=== PATIENT | male | born 1955 | race Caucasian/White ===

== ENCOUNTER 2016-11-20 21:04 | Inpatient (IN) | payer OTHER ==
[2016-11-20] VITALS (7 sets, daily range): BP systolic 124–173; BP diastolic 66–107; PULSE 50–70; RESP 16–18; TEMP 98.7; O2SAT 95–99
[~2016-11-20] VITALS: Ht 185.4 cm; Wt 105.4 kg
--- NOTE | 2016-11-20 21:25 | PD ---
HPI Chief Complaint: chest pain Time Seen by Provider: 21:15 Travel History International Travel<30 days: No Contact w/Intl Traveler<30days: No Traveled to known affect area: No History of Present Illness HPI 61-year-old male complains of chest pain. Patient states that she started having chest pain about 2 hours prior coming to the emergency room. Patient states that the chest pain substernal pressure without radiation. Patient denies palpitation nausea or diaphoresis. Patient denies any coughing congestion fever chills. Patient denies any history of CAD. Patient has history hypertension and hyperlipidemia. Patient denies history diabetes. Patient is a nonsmoker. Patient has family history of heart disease. PFSH Social History Tobacco Use: No Allergies-Medications (Allergen,Severity, Reaction): Coded Allergies: No Known Allergies (Unverified , 11/20/16) Reported Meds & Prescriptions Reported Meds & Active Scripts Active Reported Hydrochlorothiazide 25 Mg Tab 25 Mg PO DAILY Verapamil ER (Verapamil HCl) 120 Mg Tab 120 Mg PO DAILY Carvedilol 3.125 Mg Tab 3.125 Mg PO BID Review of Systems General / Constitutional: No: Fever Eyes: No: Visual changes HENT: No: Headaches Cardiovascular: Positive: Chest Pain or Discomfort Respiratory: No: Shortness of Breath Gastrointestinal: No: Abdominal Pain Genitourinary: No: Dysuria Musculoskeletal: No: Pain Skin: No Rash Neurologic: No: Weakness Psychiatric: No: Depression Endocrine: No: Polydipsia Hematologic/Lymphatic: No: Easy Bruising Physical Exam Narrative GENERAL: Well-nourished, well-developed patient. SKIN: Focused skin assessment warm/dry. HEAD: Normocephalic. EYES: No scleral icterus. No injection or drainage. NECK: Supple, trachea midline. No JVD or lymphadenopathy. CARDIOVASCULAR: Regular rate and rhythm without murmurs, gallops, or rubs. RESPIRATORY: Breath sounds equal bilaterally. No accessory muscle use. GASTROINTESTINAL: Abdomen soft, non-tender, nondistended. MUSCULOSKELETAL: No cyanosis, or edema. BACK: Nontender without obvious deformity. No CVA tenderness. Neurologic exam normal. Data Data Last Documented VS Vital Signs Date Time Temp Pulse Resp B/P Pulse Ox O2 Delivery O2 Flow Rate FiO2 11/20/16 22:21 70 18 173/107 97 Room Air 11/20/16 21:24 98.7 Orders Electrocardiogram (11/20/16 21:19) Complete Blood Count With Diff (11/20/16 21:19) Comprehensive Metabolic Panel (11/20/16 21:) Creatine Kinase (Cpk) (11/20/16 21:) Troponin I (11/20/16 21:19) Prothrombin Time / Inr (Pt) (11/20/16 21:19) Act Partial Throm Time (Ptt) (11/20/16 21:19) Lipase (11/20/16 21:) Chest, Single Ap (11/20/16 21:19) Iv Access Insert/Monitor (11/20/16 21:19) Ecg Monitoring (11/20/16:) Oximetry (11/20/16 21:) Aspirin (Aspirin) (11/20/16 21:30) CKMB (11/20/16 21:20) CKMB% (11/20/16 21:20) Nitroglycerin Sl (Nitrostat Sl) (11/20/16 22:30) Nitroglycerin 2% Oint (Nitroglycerin 2% (11/20/16 22:30) Heparin Infusion VLADIMIR.Q1H (11/20/16 22:21) Heparin Inj (Heparin Inj) (11/20/16 22:30) Heparin-D5w Inj (Heparin-D5w Inj) (11/20/16 22:30) Nitroglycerin-Dextrose Inj (Nitroglyceri (11/20/16 22:30) Admit Order (Ed Use Only) (11/20/16 22:27) Labs Laboratory Tests Test 11/20/16 21:20 White Blood Count 7.0 TH/MM3 Red Blood Count 4.71 MIL/MM3 Hemoglobin 14.2 GM/DL Hematocrit 41.9 % Mean Corpuscular Volume 88.9 FL Mean Corpuscular Hemoglobin 30.2 PG Mean Corpuscular Hemoglobin 34.0 % Concent Red Cell Distribution Width 13.8 % Platelet Count 246 TH/MM3 Mean Platelet Volume 9.1 FL Neutrophils (%) (Auto) 71.6 % Lymphocytes (%) (Auto) 18.7 % Monocytes (%) (Auto) 5.9 % Eosinophils (%) (Auto) 3.5 % Basophils (%) (Auto) 0.3 % Neutrophils # (Auto) 5.1 TH/MM3 Lymphocytes # (Auto) 1.3 TH/MM3 Monocytes # (Auto) 0.4 TH/MM3 Eosinophils # (Auto) 0.2 TH/MM3 Basophils # (Auto) 0.0 TH/MM3 CBC Comment DIFF FINAL Differential Comment Prothrombin Time 11.4 SEC Prothromb Time International 1.0 RATIO Ratio Activated Partial 26.4 SEC Thromboplast Time Sodium Level 139 MEQ/L Potassium Level 3.8 MEQ/L Chloride Level 105 MEQ/L Carbon Dioxide Level 25.5 MEQ/L Anion Gap 9 MEQ/L Blood Urea Nitrogen 27 MG/DL Creatinine 0.77 MG/DL Estimat Glomerular Filtration 103 ML/MIN Rate Random Glucose 138 MG/DL Calcium Level 9.0 MG/DL Total Bilirubin 0.7 MG/DL Aspartate Amino Transf 50 U/L (AST/SGOT) Alanine Aminotransferase 68 U/L (ALT/SGPT) Alkaline Phosphatase 55 U/L Total Creatine Kinase 892 U/L Creatine Kinase MB 24.1 NG/ML Creatine Kinase MB % 2.7 % Troponin I 0.12 NG/ML Total Protein 6.7 GM/DL Albumin 3.2 GM/DL Lipase 101 U/L [facility] Medical Decision Making Medical Screen Exam Complete: Yes Emergency Medical Condition: Yes Interpretation(s) 21:24 PM. EKG shows sinus rhythm nonspecific ST-T wave change. 22:08 PM. Last Impressions Chest X-Ray 11/20/162118 Signed Impressions: Service Date/Time: Sunday, November 20, 2016 21:28 - CONCLUSION: Compensated cardiomegaly otherwise negative Board Certified Radiologist. This report was verified electronically. 22:08 PM. CBC within normal limit. BUN 27. AST 50. Total CK 892. Troponin 0.12. Differential Diagnosis Differential diagnosis including angina, SD, PE, pneumothorax. Narrative Course 61-year-old male with chest pain. Aspirin 325 mg by mouth given. Nitro glycerin sublingually and Nitro paste given. I spoke with Dr. Ivory, product safety technical assistant research and evaluation manager. Advised heparin bolus and drip, nitro drip and morphine and admitted to [facility]. Diagnosis Primary Impression: NSTEMI (non-ST elevated myocardial infarction) Admitting Information Admitting Physician Requests: Admit Arie Gomez MD Nov 20, 2016 21:25
[2016-11-20] MEDS ORDERED: CARV3.12 PO (21:28)
[2016-11-20] MEDS ORDERED: HYDR25TA5 PO (21:28)
[2016-11-20] MEDS ORDERED: VERA1TAB9 PO (21:28)
[2016-11-20] MEDS ORDERED: ASPIRIN 325 MG TAB PO ONE (21:30)
[2016-11-20 21:39] LABS: AUTOMATED NEUTROPHIL # 5.1 TH/MM3 (1.8-7.7); BASOPHIL % 0.3 % (0.0-2.0); EOSINOPHIL # 0.2 TH/MM3 (0-0.4); EOSINOPHIL % 3.5 % (0.0-4.0); HEMATOCRIT 41.9 % (39.0-51.0); HEMO FLAGS DIFF FINAL; LYMPH % 18.7 % (9.0-44.0); LYMPHOCYTE # 1.3 TH/MM3 (1.0-4.8); MEAN CELL VOLUME 88.9 FL (80.0-100.0); MEAN CORPUSCULAR HEMOGLOBIN 30.2 PG (27.0-34.0); MONO % 5.9 % (0.0-8.0); NEUT % 71.6 % (16.0-70.0); PLATELET COUNT 246 TH/MM3 (150-450); RED BLOOD COUNT 4.71 MIL/MM3 (4.50-5.90); RED CELL DISTRIBUTION WIDTH 13.8 % (11.6-17.2)
[2016-11-20 21:48] LABS: CHLORIDE 105 MEQ/L (98-107); POTASSIUM 3.8 MEQ/L (3.5-5.1); SODIUM (NA) 139 MEQ/L (136-145)
--- NOTE | 2016-11-20 21:49 | RADRPT ---
EXAM DATE/TIME: 11/20/2016 21:28 [place] COMPARISON: No previous studies available for comparison. INDICATIONS : Chest pain. MEDICAL HISTORY : Hypertension. Coronary artery disease. SURGICAL HISTORY : None. ENCOUNTER: Initial ACUITY: 1 day PAIN SCORE: 4/10 LOCATION: chest substernal. FINDINGS: The lungs are clear. The heart is minimally enlarged. The pulmonary vascularity is normal. There is n o evidence for infiltrate or failure. The portion of the bony skeleton visualized is unremarkable. CONCLUSION: Compensated cardiomegaly otherwise negative Board Certified Radiologist. This report was verified electronically.
[2016-11-20 21:51] LABS: APTT (PATIENT) 26.4 SEC (24.3-30.1); PROTHROMBIN TIME - PATIENT 11.4 SEC (9.8-11.6)
[2016-11-20 21:52] LABS: ANION GAP 9 MEQ/L (5-15); BICARBONATE 25.5 MEQ/L (21.0-32.0); BLOOD UREA NITROGEN 27 MG/DL (7-18)
[2016-11-20 21:55] LABS: ALT (GPT) 68 U/L (12-78); AST (GOT) 50 U/L (15-37); GLOMERULAR FILTRATION RATE 103 ML/MIN (>89)
[2016-11-20 21:57] LABS: TOTAL BILIRUBIN ADULT 0.7 MG/DL (0.2-1.0)
[2016-11-20 21:58] LABS: ALKALINE PHOSPHATASE 55 U/L (45-117); CREATINE KINASE 892 U/L (39-308)
[2016-11-20 22:10] LABS: CKMB 24.1 NG/ML (0.5-3.6)
[2016-11-20] MEDS ORDERED: SODIUM CHLORIDE 0.9% FLUSH 10 ML FLUSH IV FLUSH PRN (22:30)
[2016-11-20] MEDS ORDERED: NALOXONE HCL 0.4 MG/ML AMP IV PRN (22:30)
[2016-11-20] MEDS ORDERED: HEPARIN SODIUM - IV 10,000 UNITS/10 ML VIAL IV ONE (22:30)
[2016-11-20] MEDS ORDERED: NITROGLYCERIN-DEXTROSE INJ 250 ML IV SCH (22:30)
[2016-11-20] MEDS ORDERED: HEPARIN-D5W INJ 250 ML IV SCH (22:30)
[2016-11-20] MEDS ORDERED: NITROGLYCERIN 2% OINT 1 GM PACKET TOPICAL ONE (22:30)
[2016-11-20] MEDS ORDERED: NITROGLYCERIN 0.4 MG SL 25 TABS/BTL SL ONE (22:30)
[2016-11-21] VITALS (15 sets, daily range): BP systolic 146–169; BP diastolic 83–108; PULSE 66–78; RESP 16–18; TEMP 97.7–98.6; O2SAT 92–97
[2016-11-21 04:21] LABS: APTT (PATIENT) 31.3 SEC (24.3-30.1)
--- NOTE | 2016-11-21 04:44 | HHI.HP ---
[facility] No Primary Care Physician Admission Diagnosis NSTEMI Diagnoses: (1) NSTEMI (non-ST elevated myocardial infarction) (2) Hypertension Chief Complaint: Chest pain Travel History International Travel<30 Days: No Contact w/Intl Traveler <30 Da: No Traveled to Known Affected Are: No History of Present Illness Written by Bri Cuba, acting as scribe for Dr. Jewell on 11/21/16 at 04:44. The patient reports his history as follows; yesterday (11/20/16) he developed severe chest pressure located in the central chest described as feeling like someone sitting on chest; denies associated nausea, vomiting, diaphoresis, or palpitations. The pain did not radiate anywhere. He decided to lay down in hopes that symptoms would broderick but they did not. Therefore, he drove himself to the hospital in [place]. Symptoms lasted for 2 hours and were resolved with administration of nitroglycerin in the ED. He denies any recent illness, fevers, or diarrhea. Denies black or red stools. Cardiac enzymes were elevated and he was transferred to the main hospital for admission and medical management. Review of Systems Except as stated in HPI: all other systems reviewed are Neg Past Family Social History Past Medical History Hypertension . Past Surgical History Lump on face removed 2016 as an outpatient Left hand laceration repair in 2014 . Reported Medications Reported Meds & Active Scripts Active Reported Hydrochlorothiazide 25 Mg Tab 25 Mg PO DAILY Verapamil ER (Verapamil HCl) 120 Mg Tab 120 Mg PO DAILY Carvedilol 3.125 Mg Tab 3.125 Mg PO BID . Allergies: Coded Allergies: No Known Allergies (Unverified , 11/20/16) Active Ordered Medications Current Medications Aspirin (Aspirin) 325 mg ONCE ONCE PO Last administered on 11/20/16 21:32; Start 11/20/16 at 21:30; Stop 11/20/16 at 21:31; Status DC Nitroglycerin (Nitrostat Sl) 0.4 mg ONCE ONCE SL Last administered on 22:22; Start 11/20/16 at 22:30; Stop 11/20/16 at 22:31; Status DC Nitroglycerin (Nitroglycerin 2% Oint) 1 inch ONCE ONCE TOPICAL Last administered on 11/20/16 22:22; Start 11/20/16 at 22:30; Stop 11/20/16 at 22:31 ; Status DC Heparin Sodium (Porcine) 4000 units 4,000 units ONCE ONCE IV Last administered on 11/20/16 22:50; Start 11/20/16 at 22:30; Stop 11/20/16 at 22:31 ; Status DC Heparin Sodium/ Dextrose 250 ml @ 0 mls/hr TITRATE IV Last administered on 11/20 22:52; Start 11/20/16 at 22:30 Nitroglycerin/ Dextrose (Nitroglycerin-Dextrose Inj) 250 ml @ 0 mls/hr TITRATE IV Last administered on 11/21/16 01:15; Start 11/20/16 at 22:30 Sodium Chloride (NS Flush) 2 ml UNSCH PRN IV FLUSH FLUSH AFTER USING IV ACCESS ; Start 11/20/16 at 22:30 Sodium Chloride (NS Flush) 2 ml BID IV FLUSH ; Start 11/21/16 at 09:00 Naloxone HCl (Narcan Inj) 0.4 mg UNSCH PRN IV SEE LABEL COMMENTS; Start at 22:30 Pneumococcal Polyvalent Vaccine (Pneumovax-23 Inj) 25 mcg ONCE ONCE IM ; Start 11/21/16 at 09:00; Stop 11/21/16 at 09:01 . Family History Mother from cancer age 43 y/o Father in his 60's from CAD/AL . Social History Tobacco: denies ever smoking Alcohol: usually limits drinking to weekends Illicit Drugs: denies . Physical Exam Vital Signs Vital Signs Date Time Temp Pulse Resp B/P Pulse Ox O2 Delivery O2 Flow Rate FiO2 11/21/16 03:00 73 11/21/16 03:00 97 Room Air 11/21/16 00:30 97 Room Air 11/21/16 00:30 76 11/21/16 00:30 97.7 75 18 169/108 97 11/21/16 00:05 98.0 68 18 160/97 97 11/20/16 23:15 62 16 142/82 96 Room Air 11/20/16 22:45 50 18 124/66 95 Room Air 11/20/16 22:21 70 18 173/107 97 Room Air 11/20/16 22:10 70 18 172/104 98 Room Air 11/20/16 21:35 70 18 Room Air 11/20/16 21:25 70 18 171/103 99 Room Air 149/90 11/20/16 21:24 98.7 69 18 148/97 98 11/20/16 21:20 99 Room Air Physical Exam GENERAL: This is a very pleasant overweight male patient, in no apparent distress. SKIN: No rashes, ecchymoses or lesions. Cool and dry. HEAD: Atraumatic. Normocephalic. EYES: No scleral icterus. No injection or drainage. ENT: Nose without bleeding, purulent drainage. NECK: Trachea midline. No JVD or lymphadenopathy. CARDIOVASCULAR: Regular rate and rhythm without murmurs, gallops, or rubs. RESPIRATORY: Clear to auscultation. Breath sounds equal bilaterally. No wheezes , rales, or rhonchi. GASTROINTESTINAL: Abdomen soft, non-tender, nondistended. No guarding. MUSCULOSKELETAL: Extremities without clubbing, cyanosis, or edema. No calf tenderness. NEUROLOGICAL: Awake and alert. Motor and sensory grossly within normal limits. Normal speech. . Laboratory Laboratory Tests Test 11/20/16 11/21/16 21:20 03:45 White Blood Count 7.0 Red Blood Count 4.71 Hemoglobin 14.2 Hematocrit 41.9 Mean Corpuscular Volume 88.9 Mean Corpuscular Hemoglobin 30.2 Mean Corpuscular Hemoglobin 34.0 Concent Red Cell Distribution Width 13.8 Platelet Count 246 Mean Platelet Volume 9.1 Neutrophils (%) (Auto) 71.6 Lymphocytes (%) (Auto) 18.7 Monocytes (%) (Auto) 5.9 Eosinophils (%) (Auto) 3.5 Basophils (%) (Auto) 0.3 Neutrophils # (Auto) 5.1 Lymphocytes # (Auto) 1.3 Monocytes # (Auto) 0.4 Eosinophils # (Auto) 0.2 Basophils # (Auto) 0.0 CBC Comment DIFF FINAL Differential Comment Prothrombin Time 11.4 Prothromb Time International 1.0 Ratio Activated Partial 26.4 31.3 Thromboplast Time Sodium Level 139 Potassium Level 3.8 Chloride Level 105 Carbon Dioxide Level 25.5 Anion Gap 9 Blood Urea Nitrogen 27 Creatinine 0.77 Estimat Glomerular Filtration 103 Rate Random Glucose 138 Calcium Level 9.0 Total Bilirubin 0.7 Aspartate Amino Transf 50 (AST/SGOT) Alanine Aminotransferase 68 (ALT/SGPT) Alkaline Phosphatase 55 Total Creatine Kinase 892 Creatine Kinase MB 24.1 Creatine Kinase MB % 2.7 Troponin I 0.12 Total Protein 6.7 Albumin 3.2 Lipase 101 Result Diagram: 11/20/16211911/20/162119 Imaging Last Impressions Chest X-Ray 11/20/162118 Signed Impressions: Service Date/Time: Sunday, November 20, 2016 21:28 - CONCLUSION: Compensated cardiomegaly otherwise negative Board Certified Radiologist. This report was verified electronically. . Assessment and Plan Problem List: (1) NSTEMI (non-ST elevated myocardial infarction) ICD Code: I21.4 Status: Acute (2) Hypertension ICD Code: I10 Status: Chronic Assessment and Plan Mr. Gipson is a 61 y/o male with a history of hypertension who presents to the ER on 11/20/16 with chest pain. Cardiac enzymes were elevated in ED and hes admitted for medical management. NSTEMI - Dr. Ivory, pig handler consulted in ED, assistance appreciated - Heparin drip - Nitroglycerin drip - Initial troponin I is 0.12, second troponin I is 11.3 - Serial EKGs and cardiac enzymes to trend - Continuous cardiac telemetry to monitor for arrhythmias - NPO for possible procedure in a.m. - Vital signs q4h Poorly controlled hypertension - On nitroglycerin drip - Will restart home blood pressure medications other than HCTZ which we will place on hold for now - Monitor blood pressure readings and adjust treatment as indicated DVT prophylaxis - on heparin drip . Discussed Condition With ER physician, patient, and RN . Physician Certification 2 Midnight Certification Type: Admission for Inpatient Services Order for Inpatient Services The services are ordered in accordance with Medicare regulations or non- Medicare payer requirements, as applicable. In the case of services not specified as inpatient-only, they are appropriately provided as inpatient services in accordance with the 2-midnight benchmark. Estimated LOS (days): 3 days is the estimated time the patient will need to remain in the hospital, assuming treatment plan goals are met and no additional complications. Post-Hospital Plan: Home Bri Cuba Nov 21, 2016 04:43
[2016-11-21 04:51] LABS: CKMB 48.4 NG/ML (0.5-3.6)
[2016-11-21 05:41] LABS: AUTOMATED NEUTROPHIL # 3.5 TH/MM3 (1.8-7.7); BASOPHIL % 0.3 % (0.0-2.0); EOSINOPHIL # 0.2 TH/MM3 (0-0.4); HEMATOCRIT 40.3 % (39.0-51.0); HEMO FLAGS DIFF FINAL; LYMPH % 30.1 % (9.0-44.0); LYMPHOCYTE # 1.8 TH/MM3 (1.0-4.8); MEAN CELL VOLUME 88.6 FL (80.0-100.0); MEAN CORPUSCULAR HEMOGLOBIN 29.7 PG (27.0-34.0); MEAN CORPUSCULAR HGB CONC 33.6 % (32.0-36.0); MONO % 6.5 % (0.0-8.0); NEUT % 60.1 % (16.0-70.0); PLATELET COUNT 234 TH/MM3 (150-450); RED BLOOD COUNT 4.54 MIL/MM3 (4.50-5.90); RED CELL DISTRIBUTION WIDTH 14.3 % (11.6-17.2); WHITE BLOOD COUNT 5.9 TH/MM3 (4.0-11.0)
[2016-11-21] MEDS: CARVEDILOL 3.125 MG TAB PO SCH ×3 (06:19→21:05)
[2016-11-21 06:41] LABS: BICARBONATE 28.5 MEQ/L (21.0-32.0); POTASSIUM 3.7 MEQ/L (3.5-5.1)
[2016-11-21] MEDS ORDERED: CARVEDILOL 3.125 MG TAB PO SCH (09:00)
[2016-11-21] MEDS ORDERED: PNEUMOCOCCAL POLYVALENT INJ 25 MCG/0.5 ML SYR IM ONE (09:00)
--- NOTE | 2016-11-21 09:06 | MB ---
cc: MAHTEW RITCHIE DATE OF CONSULTATION 11/21/2016 DATE OF 1955 REASON FOR CONSULTATION [id number] [place]. HISTORY OF PRESENT ILLNESS 61-year-old male with cardiac risk factors, age and hypertension who presented to the emergency department in [place] with complaints of left-sided chest pressure that lasted for two hours and was relieved by nitroglycerin given in the emergency department. EKG showed nonspecific ST changes, however, troponins were markedly elevated. Thus he was transferred to the [facility] for further management and evaluation. Overnight he was started on a nitroglycerin drip and a heparin drip. He was given an aspirin. He denies fevers, chills, nausea, vomiting, diarrhea, black or red stools or any bleeding issues. REVIEW OF SYSTEMS Negative except for what is mentioned in HPI. PAST MEDICAL HISTORY Hypertension PAST SURGICAL HISTORY 1. Removal of a lump on the face in 2015. 2. Left hand laceration repair in 2014. HOME MEDICATIONS 1. Hydrochlorothiazide 25 mg p.o. daily 2. Verapamil ER 120 mg p.o. daily 3. Coreg 3.125 mg p.o. b.i.d. ALLERGIES NO KNOWN DRUG ALLERGIES. FAMILY HISTORY The mother from cancer at age 43. Father in his 60s from a heart attack. SOCIAL HISTORY He denies illicit drug use, tobacco abuse and he drinks alcohol socially. PHYSICAL EXAM VITAL SIGNS: Temperature 98.1, respiratory rate 18, pulse 74, blood pressure 163/91, O2 sat 92% on room air. GENERAL: He is awake, alert, and oriented x3 in no acute distress. NECK: No JVD, no carotid bruits. HEART: Regular rate and rhythm without murmurs, rubs or gallops. LUNGS: Clear to auscultation bilaterally. No wheezes or rhonchi or rales. ABDOMEN: Soft, nontender, nondistended with positive bowel sounds. EXTREMITIES: No cyanosis or edema. Pulses throughout. DATA CBC hemoglobin 13, hematocrit of 40, platelet count 234, INR 1. Sodium 139, potassium 3.7, BUN 20, creatinine 0.66, troponin 0.12 and 11.3. IMAGING STUDIES Chest x-ray, there is cardiomegaly. EKG normal sinus rhythm with nonspecific ST changes. ASSESSMENT/PLAN 61-year-old male who presented with a pzi-[id number] [place] and cardiac risk factors that include age and hypertension. His SHERRELL risk score 2 and Killip classification 1 with no clinical signs of heart failure. He remains favorably hemodynamically stable chest pain-free. Given NSTEMI I think it is reasonable to take him to the cardiac medical laboratory assistant for primary PCI. The risks and benefits of left heart cath with possible intervention including, but not limited to neurovascular trauma, acute kidney injury, bleeding, stroke, emergent bypass surgery and have been explained to the patient. The patient understands the risks and is willing to proceed. RECOMMENDATIONS 1. Keep n.p.o. for left heart cath today. 2. Approach right transfemoral 6-[place] sheath. 3. Continue aggressive medical management for CAD/non-STEMI with heparin, nitroglycerin, beta-blockers, aspirin. 4. The patient should get a 2-D echo before discharge to assess LV systolic function. MD TRAY Tolbert/NADEGE /8:45 AM /8:58 AM BG
--- NOTE | 2016-11-21 09:12 | HHI.PR ---
Subjective Remarks f/u for NSTEMI Patient stated that chest pain resolved after getting nitroglycerin. He denies any shortness of breathing, lightheadedness or dizziness, or palpitations. Patient at the moment he is doing well. Objective Vitals Vital Signs Date Time Temp Pulse Resp B/P Pulse Ox O2 Delivery O2 Flow Rate FiO2 11/21/16 07:00 92 Room Air 11/21/16 07:00 74 11/21/16 07:00 98.1 74 18 163/91 92 11/21/16 03:00 98.5 70 16 158/97 97 11/21/16 03:00 73 11/21/16 03:00 97 Room Air 11/21/16 00:30 97 Room Air 11/21/16 00:30 76 11/21/16 00:30 97.7 75 18 169/108 97 11/21/16 00:05 98.0 68 18 160/97 97 11/20/16 23:15 62 16 142/82 96 Room Air 11/20/16 22:45 50 18 124/66 95 Room Air 11/20/16 22:21 70 18 173/107 97 Room Air 11/20/16 22:10 70 18 172/104 98 Room Air 11/20/16 21:35 70 18 Room Air 11/20/16 21:25 70 18 171/103 99 Room Air 149/90 11/20/16 21:24 98.7 69 18 148/97 98 11/20/16 21:20 99 Room Air I/O 11/20/16 11/20/16 11/20/16 11/21/16 11/21/16 11/21/16 07:00 15:00 23:00 07:00 15:00 23:00 Intake Total 60 ml Output Total 1400 ml Balance -1340 ml Intake IV Total 60 ml Output Urine Total 1400 ml # Bowel Movements 0 Result Diagram: 11/21/1634411/21/16344 Objective Remarks GENERAL: in NAD SKIN: Warm and dry. HEAD: Normocephalic. EYES: No scleral icterus. No injection or drainage. NECK: Supple, trachea midline. No JVD or lymphadenopathy. CARDIOVASCULAR: Regular rate and rhythm without murmurs, gallops, or rubs. RESPIRATORY: Breath sounds equal bilaterally. No accessory muscle use. GASTROINTESTINAL: Abdomen soft, non-tender, nondistended. MUSCULOSKELETAL: No cyanosis, or edema. BACK: Nontender without obvious deformity. No CVA tenderness. Medications and IVs Current Medications Aspirin (Aspirin) 325 mg ONCE ONCE PO Last administered on 11/20/16 21:32; Start 11/20/16 at 21:30; Stop 11/20/16 at 21:31; Status DC Nitroglycerin (Nitrostat Sl) 0.4 mg ONCE ONCE SL Last administered on 22:22; Start 11/20/16 at 22:30; Stop 11/20/16 at 22:31; Status DC Nitroglycerin (Nitroglycerin 2% Oint) 1 inch ONCE ONCE TOPICAL Last administered on 11/20/16 22:22; Start 11/20/16 at 22:30; Stop 11/20/16 at 22:31 ; Status DC Heparin Sodium (Porcine) 4000 units 4,000 units ONCE ONCE IV Last administered on 11/20/16 22:50; Start 11/20/16 at 22:30; Stop 11/20/16 at 22:31 ; Status DC Heparin Sodium/ Dextrose 250 ml @ 0 mls/hr TITRATE IV Last administered on 11/20 22:52; Start 11/20/16 at 22:30 Nitroglycerin/ Dextrose (Nitroglycerin-Dextrose Inj) 250 ml @ 0 mls/hr TITRATE IV Last administered on 11/21/16 01:15; Start 11/20/16 at 22:30 Sodium Chloride (NS Flush) 2 ml UNSCH PRN IV FLUSH FLUSH AFTER USING IV ACCESS ; Start 11/20/16 at 22:30 Sodium Chloride (NS Flush) 2 ml BID IV FLUSH ; Start 11/21/16 at 09:00 Naloxone HCl (Narcan Inj) 0.4 mg UNSCH PRN IV SEE LABEL COMMENTS; Start at 22:30 Pneumococcal Polyvalent Vaccine (Pneumovax-23 Inj) 25 mcg ONCE ONCE IM ; Start 11/21/16 at 09:00; Stop 11/21/16 at 09:01; Status DC Carvedilol (Coreg) 3.125 mg BID PO ; Start 11/21/16 at 09:00; Stop 11/21/16 at 09:00; Status DC Verapamil HCl (Isoptin Sr) 120 mg DAILY PO ; Start 11/21/16 at 09:00 Carvedilol (Coreg) 3.125 mg BID PO Last administered on 11/21/16t 06:19; Start 11/21/16 at 05:15 A/P Problem List: (1) NSTEMI (non-ST elevated myocardial infarction) ICD Code: I21.4 Status: Acute (2) Hypertension ICD Code: I10 Status: Chronic Assessment and Plan irene Gipson is a 61 y/o male with a history of hypertension who presents to the ER on 11/20/16 with chest pain. Cardiac enzymes were elevated in ED and hes admitted for medical management. NSTEMI -- Initial troponin I is 0.12, second troponin I is 11.3 - Dr. Ivory, jointer machine consulted in ED, assistance appreciated -Continue Heparin drip and nitroglycerin drip - Serial EKGs and cardiac enzymes to trend - Continuous cardiac telemetry to monitor for arrhythmias -Pending jointer machine's consult. Most likely patient will need cardiac catheterization. Poorly controlled hypertension - On nitroglycerin drip - Home antihypertensive medication restarted. Will just accordingly. DVT prophylaxis - on heparin drip . Chio Brennan MD Nov 21, 2016 09:12
[2016-11-21] MEDS ORDERED: IOHEXOL 350 MG/ML 100 ML BTL (for Cath Lab) OTHER ONE (09:38)
[2016-11-21] MEDS ORDERED: HEPARIN-NS/PF INJ 500 ML ONE (09:43)
[2016-11-21] MEDS ORDERED: MIDAZOLAM HCL 2 MG/2 ML VIAL ONE (09:43)
--- NOTE | 2016-11-21 09:50 | EKG ---
Date Performed: 11/20/2016 Time Performed: 21:11:03 PTAGE: 61 years EKG: Sinus rhythm POSSIBLE RIGHT VENTRICULAR CONDUCTION DELAY MODERATE T-WAVE ABNORMALITY, CONSIDER LATERAL ISCHEMIA A BNORMAL ECG NO PREVIOUS TRACING DOCTOR: Castro Ivory Interpretating Date/Time 11/21/2016 09:47:50
[2016-11-21] MEDS ORDERED: HEPARIN SODIUM - IV 10,000 UNITS/10 ML VIAL ONE (10:04)
--- NOTE | 2016-11-21 10:09 | EKG ---
Date Performed: 11/21/2016 Time Performed: 03:21:52 PTAGE: 61 years EKG: Sinus rhythm with borderline 1st degree A-V block Prolonged QT interval Borderline ECG PREVIOUS TRACING : 11/20/2016 21.11 Slight improvement in the T-wave abnormality compared to th e prior tracing. DOCTOR: Castro Ivory Interpretating Date/Time 11/21/2016 10:08:12
[2016-11-21] MEDS ORDERED: CLOPIDOGREL 300 MG TAB ONE (10:38)
[2016-11-21] MEDS ORDERED: SODIUM CHLOR 0.9% 1000 ML INJ 1,000 ML IV SCH (10:50)
--- NOTE | 2016-11-21 10:55 | CATHPROC ---
[facility] HIS Report Study Information Study Number Admission Scheduled Start Study Start [id number] Nov 20 2016 10:29PM 11/21/2016 Nov 21 2016 9:37AM [facility] Service Cardiac Catheterization Admit Source Facility Department Other [facility] - Inpatient Coder Physician and Clinical Staff Initial MD Horne, Edwin Ore Puncher Katy Hoskins,ARACELI Recorder Juan Martinez,GUANACO(BS) Scrub Kendall Chavez RCIS(BS) Procedures Performed Procedure Location (Site) Vessel Name Coronary Angiograms LCA Left Coronary Coronary Angiograms RCA Right Coronary Drug Eluting Inflatio CIRC Mid CIRC L Heart Cath LV Gram-hand inj. LV LV Ventricle PTCA CIRC Mid CIRC PTCA SEPTAL, 1st (Mid) Left Coronary Wire insertion Fem Art (right) Femoral Art Equipment Time Armored Vehicle Officer Description Size Mfg Part Number Used/Scraped COPILOT VALVE, BLEEDBACK [id number] 10:03 [employer] Used CONTROL *[id number] PERCLOSE, PRO GLIDE CLOSER 10:33 [place] 6 [address] *[id number] Used DEVICE PERCLOSE, PRO GLIDE CLOSER 10:35 [place] [place] [place] [place] 6 [address] *[id number] Used DEVICE TRANSDUCER, TRUWAVE [id number] 09:54 BURNETT GARCIA * Used W/STOCKCOCK *[id number] MPIS-502-10.0- INTRODUCER SET, 09:54 [employer] FR 5 SC-NT-U-SST Used MICROPUNCTURE, STIFFENED *[id number] MPIS-502-10.0- INTRODUCER SET, 09:59 [employer] FR 5 SC-NT-U-SST Used MICROPUNCTURE, STIFFENED *[id number] [id number] *[id number] [id number] *[id number] 09:54 [employer] PACK, CCL CUSTOM * Used *[id number] 10:18 MEDTR[employer]IC BALLOON, 2.0 X 10MM EUPHORA 10MM Used *[id number] 10:40 [employer] BALLOON, 3.0 X 20MM EUPHORA 20MM Used *[id number] BALLOON, 3.0 X 20MM NC [id number] 10:29 MEDTRONIC 20MM Used EUPHORA *[id number] STENT, 2.75 30 RESOLUTE [id number] 10:24 MEDTRONIC 2.75 30 Used INTEGRITY RX *[id number] 10:09 MEDTRONIC/AVE EBU 3.5 Z2 GUIDE CATHETER FR 6 Used *[id number] [id number] 10:20 [employer] MEDICAL 30 KHALIDA INDEFLATOR Used *[id number] 09:54 [employer] MEDICAL SHEATH, FR6.5 PRELUDE 11CM FR 6.5 038ACT Used *9382557 [id number] 09:54 [employer] MEDICAL WIRE, 3MMJ .035 180CM 180CM Used *[id number] 09:59 [employer] MEDICAL WIRE, 3MMJ .035 180CM 180CM Used *3144526 [id number] 09:54 NAMIC MANIFOLD, 4 PORT * Used *[id number] 09:54 NYCOMED OMNIPAQUE, 350 MG, 150ML 150ML [id number] Used [id number] 09:54 [employer] MEDICAL BLANKET,WARM AIR CCL * Used *[id number] WIRE, RUNTHROUGH NS FLOPPY 25-1011 10:03 [employer] MEDICAL 180CM Used .014 180CM *[id number] Equipment Model, Serial, Lot Number and Expiration Data Description Model Number Serial Number Lot Number Expiration Date INTRODUCER SET, [id number] 09-21-2019 MICROPUNCTURE, STIFFENED PERCLOSE, PRO GLIDE CLOSER [id number] 07-11-2018 DEVICE STENT, 2.75 30 RESOLUTE [id number] 07-16-2018 INTEGRITY RX History: Allergies Allergy Reaction No Known Allergies History: Risk Factors Family History of Hypertension Dyslipidemia Previous AK Previous Heart Failure Premature CAD Yes No Yes No No Prior Valve Prior PCI Prior CABG Surgery No No No Cerebrovascular Peripheral Artery Chronic Lung On Dialysis Diabetes Disease Disease Disease No No No No No History: Symptoms/Diagnosis Selection Items Angina-unstable History: Stress Tests Stress or Imaging Studies Performed No History: Other Current Smoker No Labs Hgb (g/dl) Hct (%) WBC (l/cumm) Platelets (thousands) 11.60-17.00 35.00-51.00 4.00-11.00 150.00-450.00 13.5 40.3 5.9 234 Glucose (mg/dl) BUN (mg/dl) Creatinine (mg/dl) BUN:Creatinine (1:x) 74.00-106.00 7.00-18.00 0.50-1.30 10.00-20.00 97 20 0.6 33.3 Na (meq/l) K (meq/l) 136.00-145.00 3.50-5.10 139 3.7 INR (PTT:PT) 0.90-1.10 1 Troponin I (ng/ml) CPK (u/l) CPK-MB (ng/ML) 0.02-0.05 26.00-308.00 0.50-3.60 11.3 902 48.4 Medication Medication Total Dose (Bolus/Oral) Medication Total Dosage/Unit 1% XYLOCAINE 20 mL FENTANYL 100 mcg HEPARIN 5000 units PLAVIX 600 mg VERSED 2 mg Medications (Bolus/Oral) Medication Time Given Dosage/Unit Administered By Reason FENTANYL 11/21/2016 9:54:00 AM 50 mcg Mrache, Kayt 50 mcg FENTANYL given in lab by Katy Hoskins RN in Right Antecubital via Peripheral IV. Ordered by Edwin Horne. 1% XYLOCAINE 11/21/2016 9:54:13 AM 20 mL Edwin Horne 20 mL 1% XYLOCAINE given in lab by Edwin Horne in Right Groin via Subcutaneous. Ordered by Edwin Villagran. VERSED 11/21/2016 9:58:46 AM 2 mg Mrache, Katy 2 mg VERSED given in lab by Katy Hoskins RN in Right Antecubital via Peripheral IV. Ordered by Edwin Heaton. HEPARIN 11/21/2016 10:08:55 AM 5000 units Mrache, Katy 5000 units HEPARIN given in lab by Katy Hoskins RN in Right Antecubital via Peripheral IV. Order ed by Edwin Horne. FENTANYL 11/21/2016 10:32:00 AM 50 mcg Mrache, Katy 50 mcg FENTANYL given in lab by Katy Hoskins RN in Right Antecubital via Peripheral IV. Ordered by Edwin Horne. PLAVIX 11/21/2016 10:42:00 AM 600 mg Mrache, Katy 600 mg PLAVIX given in lab by Katy Hoskins RN via Oral. Ordered by Edwin Horne. Medication (Drip) Medication Time Given Dosage/Unit Concentration/Unit Diluent (ml) Solution IV Solutions 11/21/2016 9:38:58 AM 0 mL (IV) 500 NaCl .9 Patient arrived on IV Solutions in Right Antecubital via Peripheral IV. Pump/Drip Flow = 20 ml/hr usi ng NaCl .9. Ordered by Edwin Horne. Initial Case Assessment Cardiovascular HR Rhythm NIBP Chest Pain 85 SR 170/116 0 Edema Present Skin color Skin None Normal Warm Dry Circulatory - Right Pulses Dorsalis Pedis Femoral 2 2 Scale (0,1,2,3,4,d) Circulatory - Left Pulses Dorsalis Pedis Femoral 2 2 Scale (0,1,2,3,4,d) Circulatory - Lower Extremities Color Lower Right Color Lower Left Normal Normal Neurological State Oriented to time-place- Lethargic Moves all extremities person Respiration - General Respiration Rate SpO2 (%) (B/min) 17 96 Chronological Log Time Study Chronological Log 9:35:00 Patient arrived via Bed. 9:38:33 Patient Name, D.O.B, / Armband Verified By R.N. 9:38:34 Consent signed by the physician and the patient and verified by the Inpatient Coder staff. 9:38:34 Pre-op and post- op instructions given; patient acknowledges understanding of instructions. 9:38:35 Verbal Stimulation=2 Physical Stimulation=2 Airway=2 Respiration=2 TOTAL=8. (0=absent, 1=li mited, 2=present) 9:38:42 Patient has been NPO for Less than 6Hrs. 9:38:43 Skin Breakdown- 9:38:44 Patient Warmer Placed on the Table. Vitals capture started with the following parameters, Patient=Adult, Interval=5 min, Initial Pr uclisx=328 mmHg, 9:38:52 Deflation Rate=5 mmHg 9:38:56 A # 20 IV was noted in the Antecubital (right). Grade = 0 Patient arrived on IV Solutions in Right Antecubital via Peripheral IV. Pump/Drip Flow = 20 ml/ hr using NaCl .9. Ordered 9:38:58 by Edwin Horne. 9:38:59 History and physical on the chart or being dictated. Assessment: Initial Case, HR=85 BPM, Rhythm=SR, CMQD=687/116 mmhg, Chest Pain=0, Edema=None, Color=Normal, Skin = Warm, Dry Right Pulses: Eben Ped=2, Femoral=2 Left Pulses: Eben Ped=2, Femoral=2 9:38:59 Lower Right Extremities: Color=Normal Lower Left Extremities: Color=Normal Neurological: State=Lethargic, Ox3, MERCHANT Respiration: Resp=17 B/min, SpO2=96 % 9:39:57 HR=73 bpm, CCSM=676/107 mmhg, SpO2=96.0 %, Resp=19 B/min, Pain=0, Regan=10, Waite=2 9:44:34 HR=73 bpm, KKOL=638/104 mmhg, SpO2=94.0 %, Resp=16 B/min, Pain=0, Regan=10, Waite=2 9:48:56 Bilateral groins prepped with 2% chlorhexidine, and with a 3 min. waiting time. 9:49:33 HR=76 bpm, NSNN=503/116 mmhg, SpO2=97.0 %, Resp=17 B/min, Pain=0, Regan=10, Waite=2 9:50:01 MD arrived. Time Out. Correct patient, correct procedure,correct physician, power injector not loaded with contrast with surgical 9:52:36 team present. Time Out Concurred by MD, individual staff in procedure 9:53:00 Case Start 50 mcg FENTANYL given in lab by Ktay Hoskins, ARACELI in Right Antecubital via Peripheral IV. Or dered by Coleen, 9:54:00 Edwin. 20 mL 1% XYLOCAINE given in lab by Edwin Horne in Right Groin via Subcutaneous. Ordered b y Coleen, 9:54:13 Edwin. 9:54:21 Access site was Right Femoral Artery. 9:54:32 HR=75 bpm, NOXM=272/101 mmhg, SpO2=96.0 %, Resp=19 B/min, Pain=0, Regan=10, Waite=2 A INTRODUCER SET, MICROPUNCTURE, STIFFENED FR 5 was advanced into the Fem Art (right) using the 9:54:37 Percutaneous technique. 9:55:26 Pressure channel 1 zeroed. 9:55:40 Reference ECG taken A SHEATH, FR6.5 PRELUDE 11CM FR 6.5 was exchanged in the Fem Art (right). This was necessary in order to 9:56:00 accomodate a larger catheter. 9:57:21 An injection in the Fem Art (right) was made through the SHEATH, FR6.5 PRELUDE 11CM FR 6.5. 2 mg VERSED given in lab by Katy Hoskins RN in Right Antecubital via Peripheral IV. Ordere d by Coleen, 9:58:46 Edwin. A JR 4.0 INFINITI CATHETER FR 5 was advanced over a wire. OMNIPAQUE, 350 MG, 150ML 150ML was us ed for 9:58:49 injections. Recorded Pressure: LV, HR=72, Condition=Condition 1 9:59:24 (Left Ventricle) LV 141/11/20 9:59:35 HR=63 bpm, TUIU=755/93 mmhg, SpO2=94.0 %, Resp=14 B/min, Pain=0, Regan=10, Waite=2 9:59:50 The LV was manually injected with 8 cc's and visualized. OMNIPAQUE, 350 MG, 150ML 150ML used . Recorded Pressure: LV, Ao, HR=71, Condition=Condition 1 10:00:04 (Left Ventricle) LV 147/6/12, (Aorta) Ao 136/91/110 10:00:13 The RCA was injected and visualized at various angles. OMNIPAQUE, 350 MG, 150ML 150ML used . After removing the current catheter a JL 4.0 INFINITI CATHETER FR 5 was advanced over a WIRE, 3 MMJ .035 180CM 10:01:14 180CM. 10:01:31 The LCA was injected and visualized at various angles. OMNIPAQUE, 350 MG, 150ML 150ML used . Recorded Pressure: Ao, HR=69, Condition=Condition 1 10:02:16 (Aorta) Ao 118/78/95 10:03:52 Catheter was removed 10:04:36 HR=70 bpm, MICX=090/85 mmhg, SpO2=95.0 %, Resp=13 B/min, Pain=0, Regan=10, Waite=2 5000 units HEPARIN given in lab by Katy Hoskins, ARACELI in Right Antecubital via Peripheral IV. Ordered by Karina- 10:08:55 Edwin Disla. 10:08:58 Activated Clotting Time Drawn 10:09:00 ACT (Normal Range 90-180) = 69 10:09:37 HR=72 bpm, NBZV=714/80 mmhg, SpO2=95.0 %, Resp=15 B/min, Pain=0, Regan=10, Waite=2 A EBU 3.5 Z2 GUIDE CATHETER FR 6 was advanced over a wire. OMNIPAQUE, 350 MG, 150ML 150ML was u sed for 10:09:59 injections. 10:12:22 Activated Clotting Time Drawn 10:12:49 A WIRE, RUNTHROUGH NS FLOPPY .014 180CM 180CM was inserted via Fem Art (right). 10:14:36 HR=70 bpm, RTAR=419/84 mmhg, SpO2=95.0 %, Resp=14 B/min, Pain=0, Regan=10, Waite=2 10:16:43 ACT (Normal Range 90-180) = 263 10:17:09 Interventional wire has crossed the lesion 10:19:35 HR=69 bpm, PSCA=605/91 mmhg, SpO2=98.0 %, Resp=16 B/min, Pain=0, Regan=10, Waite=2 A BALLOON, 2.0 X 10MM EUPHORA 10MM was inserted over WIRE, RUNTHROUGH NS FLOPPY .014 180CM 180C M via 10:19:45 the Fem Art (right). A BALLOON, 2.0 X 10MM EUPHORA 10MM over a WIRE, RUNTHROUGH NS FLOPPY .014 180CM 180CM in the SE PTAL, 10:19:46 1st (Mid) was inflated using a 30 KHALIDA INDEFLATOR at 10 khalida for 20 sec. 10:21:35 Balloon Removed. A STENT, 2.75 30 RESOLUTE INTEGRITY RX 2.75 30 was advanced through a EBU 3.5 Z2 GUIDE CATHETER FR 6 over 10:23:55 a WIRE, RUNTHROUGH NS FLOPPY .014 180CM 180CM. A STENT, 2.75 30 RESOLUTE INTEGRITY RX 2.75 30 was deployed using a 30 KHALIDA INDEFLATOR at 12 khalida ospheres 10:24:29 for 20 seconds in the CIRC Mid. 10:24:38 HR=69 bpm, LOHX=770/89 mmhg, SpO2=97.0 %, Resp=15 B/min, Pain=0, Regan=10, Waite=2 10:26:35 Delivery device removed A BALLOON, 3.0 X 20MM NC EUPHORA 20MM was inserted over WIRE, RUNTHROUGH NS FLOPPY .014 180CM 1 80CM 10:29:24 via the Fem Art (right). A BALLOON, 3.0 X 20MM NC EUPHORA 20MM over a WIRE, RUNTHROUGH NS FLOPPY .014 180CM 180CM in the CIRC 10:29:25 Mid was inflated using a 30 KHALIDA INDEFLATOR at 16 khalida for 20 sec. 10:29:37 HR=72 bpm, QPPI=273/98 mmhg, SpO2=97.0 %, Resp=16 B/min, Pain=0, Regan=10, Waite=2 10:30:53 Balloon Removed. 10:31:54 Wire removed 50 mcg FENTANYL given in lab by Katy Hoskins RN in Right Antecubital via Peripheral IV. Or dered by Coleen, 10:32:00 Edwin. 10:32:13 Catheter was removed 10:32:40 PERCLOSE, PRO GLIDE CLOSER DEVICE FR 6 placement in the Fem Art (right) 10:34:38 HR=73 bpm, VXQS=835/91 mmhg, SpO2=98.0 %, Resp=14 B/min, Pain=0, Regan=10, Waite=2 10:34:46 Case End 10:35:56 Sterile dressing applied to site 10:35:58 No case complications noted. 10:35:59 Cine recording checked. 10:36:15 Implantable Device card placed in patient's chart. 10:36:18 Contrast Scanned 10:36:26 A Left Heart Cath was performed. 10:36:28 Patient moved to stretcher 10:39:41 HR=73 bpm, YVXF=197/89 mmhg, SpO2=94.0 %, Resp=15 B/min, Pain=0, Regan=10, Waite=2 10:42:00 600 mg PLAVIX given in lab by Katy Hoskins, RN via Oral. Ordered by Edwin Horne. End Study - Contrast Media Used In Study Contrast Total Opened (mL) Total Used (mL) Total Wasted (mL) Omnipaque 170 170 0 End Study - Maximum Contrast Load Max Contrast Load (mL) 884.1 End Study - Radiation Exposure Fluoro Time (minutes) 10.1 End Study - Patient Disposition Complications Transferred To Interventional Outcome No Telemetry Bed successful
[2016-11-21] MEDS ORDERED: MISC INFORMATION XX ONE (11:00)
[2016-11-21] MEDS ORDERED: ATROPINE SULFATE 1 MG/ML VIAL IV PRN (11:00)
[2016-11-21] MEDS ORDERED: ONDANSETRON HCL 4 MG/2 ML VIAL IV PRN (11:00)
[2016-11-21] MEDS ORDERED: ACETAMINOPHEN 325 MG TAB PO PRN (11:00)
[2016-11-21] MEDS ORDERED: CLOPIDOGREL 300 MG TAB PO ONE (11:00)
--- NOTE | 2016-11-21 12:56 | MA ---
cc: CHAUSAADMATHEW DATE: 11/21/2016 DATE OF : 1955 PROCEDURE PERFORMED 1. Left heart catheterization. 2. Selective right and left coronary angiography. 3. Left ventriculography. 4. Selective right common femoral artery angiography. 5. PCI to left circumflex and POBA (plain old balloon angioplasty) to septal. INDICATION [id number] SD. APPROACH Right transfemoral. PROCEDURE DESCRIPTION Consent signed. The patient was taken to the cardiac color laboratory technician in a fasting state. The right groin was prepped and draped in a sterile fashion. Using 1% lidocaine for local anesthesia and a micropuncture kit a 6-St Helenian sheath was inserted into the right common femoral artery. A right common femoral artery angiography was performed to confirm position of the sheath. Then selective right and left coronary angiography was performed with JR4 and JL4 diagnostic catheters. Angiography was taken in multiple views. The JR4 was introduced over a J-wire into the left ventricle. This was followed by pressure recordings , left ventriculogram and pullback. We identified a thrombotic lesion in the first septal which is a prominent septal as well as significant 90% stenosis in the distal circumflex artery. Both lesions were amenable for percutaneous intervention. IV heparin was given for IV anticoagulation. The left main was engaged with an EBU 3.5 guide. The first septal was wired with a Runthrough wire. This was followed by plain old balloon angioplasty with a 2.0 x 10 balloon with successful opening of the vessels and no residual stenosis and SHERRELL -III flow. Next, we wired the left circumflex artery. The vessel was wired with a Runthrough wire which was anchored distally in the posterolateral branch. Then we direct stented the distal vessel with a 2.75 x 30 drug-eluting stent. The stent was post dilated with a noncompliant 300 x 20 to high atmospheres. Final angiographic views revealed good stent apposition and expansion with SHERRELL-III flow and no residual stenosis. The patient tolerated the procedure well without complications. Estimated blood loss less than 30 cc. Total contrast 170 cc. The right groin access site was closed with a Perclose device. The patient was loaded with Plavix after the procedure. PROCEDURE RESULTS LEFT VENTRICLE The left ventricular pressure was 147/6 with an LVEDP of 12. The aortic pressure was 118/78 with a mean of 95. There was no gradient upon pullback from the left ventricle to the aorta. Left ventriculogram revealed normal LV systolic function, estimated ejection fraction of at least 50%. ANGIOGRAPHY 1. The right coronary artery is a dominant vessel giving off a PDA. The vessel has minimal luminal irregularities and tortuosity proximally; however, for the most part has nonobstructive coronary artery disease, patent and SHERRELL-III flow. The PDA is also patent with SHERRELL-III flow and nonobstructive coronary artery disease. 2. The left main is patent with SHERRELL-III flow. 3. The LAD is diffusely diseased throughout. It is a relatively small vessel in comparison to the others, however, no significant obstructive coronary artery disease. It tapers at the apex. There is a prominent second and third diagonal which are diffusely diseased and patent. The LAD has a prominent septal S1 which bifurcates proximally. This vessel has a thrombotic lesion in the midsegment and has SHERRELL-II flow. 4. The left circumflex is diffusely . It has a distal 90% concentric lesion. It also has three main OM branches which are small with the third one having significant disease with a 99% lesion; however, this vessel is less than 1 mm in size. 5. The patient has a ramus which has diffuse minimal irregularities, however, patent with SHERRELL-III flow and nonobstructive coronary artery disease. CONCLUSIONS 1. Successful PCI to left circumflex artery in the setting of a non-ST- elevation SD. 2. Successful POBA (plain old balloon angioplasty) to ramus in the setting of a thrombotic lesion in the septal. 3. Preserved LV systolic function and normal LVEDP. RECOMMENDATIONS The patient will be going back to [facility] for post-cath recovery. He will continue dual-antiplatelet agents with aspirin and Plavix as well as aggressive medical management for other risk factors for coronary artery disease with beta-birdie , SHRUTHI inhibitor and statin. He should get a 2-D echo to better assess LV systolic function before discharge. He will remain at bedrest for the next four hours and after that will encourage ambulation. MD TRAY Tolbert/BT /10:49 AM /12:40 PM MTDD
[2016-11-21 15:47] LABS: APTT (PATIENT) 25.2 SEC (24.3-30.1)
[2016-11-21 17:56] LABS: CKMB 37.2 NG/ML (0.5-3.6)
[2016-11-21] MEDS: SODIUM CHLORIDE 0.9% FLUSH 10 ML FLUSH IV FLUSH SCH (21:00)
[2016-11-22] VITALS (11 sets, daily range): BP systolic 134–166; BP diastolic 86–97; PULSE 38–79; RESP 16–18; TEMP 98.2–98.4; O2SAT 96–97
--- NOTE | 2016-11-22 08:04 | PD.CARD.PN ---
Subjective Subjective Remarks no complaints Objective Medications Current Medications Medications (Trade) Dose Ordered Sig/Cheng Route Start Time Stop Time Status Last Admin Heparin Sodium/ Dextrose 250 ml @ 0 mls/hr TITRATE IV 11/20/16 22:30 11/20/16 22:52 (Nitroglycerin-Dextrose Inj) 250 ml @ 0 mls/hr TITRATE IV 11/20/16 22:30 11/21/16 01:15 (NS Flush) 2 ml UNSCH PRN IV FLUSH 11/20/16 22:30 (NS Flush) 2 ml BID IV FLUSH 11/21/16 09:00 11/21/16 21:00 (Narcan Inj) 0.4 mg UNSCH PRN IV 11/20/16 22:30 (Isoptin Sr) 120 mg DAILY PO 11/21/16 09:00 (Coreg) 3.125 mg BID PO 11/21/16 05:15 11/21/16 21:05 (Tylenol) 325 mg Q4H PRN PO 11/21/16 11:00 (Aspirin Chew) 81 mg DAILY PO 11/22/16 09:00 (Plavix) 75 mg DAILY PO 11/22/16 09:00 (Atropine Inj) 0.5 mg UNSCH PRN IV 11/21/16 11:00 (Zofran Inj) 4 mg Q4H PRN IV 11/21/16 11:00 (Lipitor) 40 mg DAILY PO 11/21/16 11:00 (Prinivil) 5 mg DAILY PO 11/22/16 09:00 Vital Signs / I&O Vital Signs Date Time Temp Pulse Resp B/P Pulse Ox O2 Delivery O2 Flow Rate FiO2 11/22/16 06:00 79 11/22/16 05:00 66 11/22/16 04:00 98.4 68 16 165/96 96 11/22/16 04:00 66 11/22/16 03:06 38 11/22/16 03:00 72 11/22/16 02:00 66 11/22/16 01:00 64 11/22/16 00:00 98.2 66 16 134/86 96 11/22/16 00:00 66 11/21/16 23:00 68 11/21/16 22:00 74 11/21/16 21:00 74 11/21/16 20:00 78 11/21/16 20:00 98.3 78 16 146/89 96 11/21/16 20:00 96 Room Air 11/21/16 18:00 72 11/21/16 17:00 78 11/21/16 16:00 98.6 76 18 160/97 97 11/21/16 16:00 72 11/21/16 15:00 72 11/21/16 14:00 70 11/21/16 13:00 66 11/21/16 12:30 72 11/21/16 12:30 98.4 70 18 150/83 96 11/21/16 12:30 96 Room Air 11/21/16 10:59 95 Room Air I/O 11/21/16 11/21/16 11/21/16 11/22/16 11/22/16 11/22/16 07:00 15:00 23:00 07:00 15:00 23:00 Intake Total 60 ml 600 ml 513 ml Output Total 1400 ml 550 ml 750 ml Balance -1340 ml 50 ml -237 ml Intake Oral 600 ml 480 ml IV Total 60 ml 33 ml Output Urine Total 1400 ml 550 ml 750 ml # Bowel Movements 0 0 Physical Exam GENERAL: Well-nourished, well-developed patient. SKIN: Warm and dry. HEAD: Normocephalic. EYES: No scleral icterus. No injection or drainage. NECK: Supple, trachea midline. No JVD or lymphadenopathy. CARDIOVASCULAR: Regular rate and rhythm without murmurs, gallops, or rubs. RESPIRATORY: Breath sounds equal bilaterally. No accessory muscle use. GASTROINTESTINAL: Abdomen soft, non-tender, nondistended. EXTREMITIES: No cyanosis, or edema. NEUROLOGICAL: Awake, alert, and oriented x 3. Non-focal. Laboratory Laboratory Tests Test 11/21/16 15:01 Activated Partial 25.2 SEC Thromboplast Time Total Creatine Kinase 612 U/L Creatine Kinase MB 37.2 NG/ML Creatine Kinase MB % 6.1 % Troponin I 23.80 NG/ML Imaging Last Impressions Chest X-Ray 11/20/162118 Signed Impressions: Service Date/Time: Sunday, November 20, 2016 21:28 - CONCLUSION: Compensated cardiomegaly otherwise negative Board Certified Radiologist. This report was verified electronically. MD Assessment and Plan Problem List: (1) NSTEMI (non-ST elevated myocardial infarction) Assessment and Plan: s/p PCI/JAK to LCx No complaints No overnight events Recommendations 1. DAPT ASA and Plavix 2. BB, ACEi, Statin 3. Stable to be D/C from CV standpoint 4. F/U with cardiology upon discharge (2) Chest pain (3) Hypertension Problem Qualifiers (1) Chest pain: Qualified Code: R07.9 - Chest pain, unspecified type Edwin Horne MD Nov 22, 2016 08:04
[2016-11-22] MEDS: CARVEDILOL 3.125 MG TAB PO SCH (08:18)
[2016-11-22] MEDS: VERAPAMIL HCL 120 MG SUSTAINED RELEASE TAB PO SCH ×2 (08:19→09:00)
[2016-11-22] MEDS: ATORVASTATIN 40 MG TAB PO SCH ×2 (08:20→09:00)
[2016-11-22] MEDS: SODIUM CHLORIDE 0.9% FLUSH 10 ML FLUSH IV FLUSH SCH (08:21)
[2016-11-22] MEDS ORDERED: LISI-519 PO (08:52)
[2016-11-22] MEDS ORDERED: PLAV75TA29 PO (08:52)
[2016-11-22] MEDS ORDERED: ASPI81CH25 PO (08:52)
[2016-11-22] MEDS ORDERED: ATOR40TA16 PO (08:52)
--- NOTE | 2016-11-22 08:55 | HHI.DCPOC ---
Discharge Care Plan Diagnosis: (1) Chest pain (2) NSTEMI (non-ST elevated myocardial infarction) (3) Hypertension Goals to Promote Your Health * To prevent worsening of your condition and complications * To maintain your health at the optimal level Directions to Meet Your Goals Take your medications as prescribed Follow your dietary instruction Follow activity as directed Keep your appointments as scheduled Take your immunizations and boosters as scheduled If your symptoms worsen call your PCP, if no PCP go to Urgent Care Center or Emergency Room Smoking is Dangerous to Your Health. Avoid second hand smoke Call the 24-hour hour crisis hotline for domestic abuse at Chio Brennan MD Nov 22, 2016 08:55
--- NOTE | 2016-11-22 08:56 | HHI.DS ---
Discharge Summary Admission Date Nov 20, 2016 at 22:29 Admitting Diagnosis NSTEMI (1) NSTEMI (non-ST elevated myocardial infarction) ICD Code: I21.4 (2) Hypertension ICD Code: I10 Brief History - From Admission Written by Bri Cuba, acting as scribe for Dr. Jewell on 11/21/16 at 04:44. The patient reports his history as follows; yesterday (11/20/16) he developed severe chest pressure located in the central chest described as feeling like someone sitting on chest; denies associated nausea, vomiting, diaphoresis, or palpitations. The pain did not radiate anywhere. He decided to lay down in hopes that symptoms would broderick but they did not. Therefore, he drove himself to the hospital in [place]. Symptoms lasted for 2 hours and were resolved with administration of nitroglycerin in the ED. He denies any recent illness, fevers, or diarrhea. Denies black or red stools. Cardiac enzymes were elevated and he was transferred to the main hospital for admission and medical management. CBC/BMP: 11/21/16 0345 11/21/16 0345 Significant Findings Laboratory Tests Test 11/20/16 11/21/16 11/21/16 21:20 03:45 15:01 Neutrophils (%) (Auto) 71.6 % (16.0-70.0) Blood Urea Nitrogen 27 MG/DL (7-18) 20 MG/DL (7-18) Random Glucose 138 MG/DL (74-106) Aspartate Amino Transf 50 U/L (15-37) (AST/SGOT) Total Creatine Kinase 892 U/L 902 U/L 612 U/L (39-308) (39-308) (39-308) Creatine Kinase MB 24.1 NG/ML 48.4 NG/ML 37.2 NG/ML (0.5-3.6) (0.5-3.6) (0.5-3.6) Troponin I 0.12 NG/ML 11.30 NG/ML 23.80 NG/ML (0.02-0.05) (0.02-0.05) (0.02-0.05) Albumin 3.2 GM/DL (3.4-5.0) Activated Partial 31.3 SEC Thromboplast Time (24.3-30.1) Creatine Kinase MB % 5.4 % (0.0-4.0) 6.1 % (0.0-4.0) PE at Discharge GENERAL: in NAD SKIN: Warm and dry. HEAD: Normocephalic. EYES: No scleral icterus. No injection or drainage. NECK: Supple, trachea midline. No JVD or lymphadenopathy. CARDIOVASCULAR: Regular rate and rhythm without murmurs, gallops, or rubs. RESPIRATORY: Breath sounds equal bilaterally. No accessory muscle use. GASTROINTESTINAL: Abdomen soft, non-tender, nondistended. MUSCULOSKELETAL: No cyanosis, or edema. BACK: Nontender without obvious deformity. No CVA tenderness. Discharge Disposition: Discharge Home Discharge Instructions DIET: Follow Instructions for: Heart Healthy Diet Activities you can perform: See Additionl Instruction Other Activity Instructions: as directed by Drilling Fluids Specialist Chio Brennan MD Nov 22, 2016 08:56
[2016-11-22] MEDS ORDERED: ASPIRIN 81 MG CHEW TAB PO SCH (09:00)
[2016-11-22] MEDS ORDERED: CLOPIDOGREL 75 MG TAB PO SCH (09:00)
[2016-11-22] MEDS ORDERED: LISINOPRIL 5 MG TAB PO SCH (09:00)
== END 2016-11-22 10:54 | disposition home or self-care (01) | DRG 247 ==
LOC: PHED 21:04 → PHEDA 22:29 → HCVR 11-21 00:40 → HCIS 11-21 11:24
PROVIDERS: ADMIT Family Medicine; ATTEND Family Medicine
PROC: 4A023N7 Measurement of Cardiac Sampling and Pressure, Left Heart, Percutaneous Approach (ICD-10-PCS; 2016-11-21)
PROC: B2111ZZ Fluoroscopy of Multiple Coronary Arteries using Low Osmolar Contrast (ICD-10-PCS; 2016-11-21)
PROC: B2151ZZ Fluoroscopy of Left Heart using Low Osmolar Contrast (ICD-10-PCS; 2016-11-21)
PROC: B41F1ZZ Fluoroscopy of Right Lower Extremity Arteries using Low Osmolar Contrast (ICD-10-PCS; 2016-11-21)
PROC: 027134Z Dilation of Coronary Artery, Two Arteries with Drug-eluting Intraluminal Device, Percutaneous Approach (ICD-10-PCS; principal; 2016-11-21 09:45)
DX: I21.4 Non-ST elevation (NSTEMI) myocardial infarction (principal); I25.119 Atherosclerotic heart disease of native coronary artery with unspecified angina pectoris; I10 Essential (primary) hypertension; E78.5 Hyperlipidemia, unspecified; Z82.49 Family history of ischemic heart disease and other diseases of the circulatory system
CPT/HCPCS: 71010; 80048; 80053; 82550; 82552; 83690; 84484; 85002; 85025; 85610; 85730; 92928; 92929; 93005; 93458; C1725; C1760; C1769; C1874; C1893; G0269; J1644; J2250; J3010; Q9967

== ENCOUNTER 2017-08-05 20:22 | Inpatient (IN) | payer SELFPAY ==
[~2017-08-05] VITALS: Ht 182.9 cm; Wt 104.0 kg
[2017-08-05] VITALS (12 sets, daily range): BP systolic 117–179; BP diastolic 65–122; PULSE 74–144; RESP 16–21; O2SAT 92–100
[~2017-08-05 20:22] MED LIST: ASPI81CH25 PO; ATOR40TA16 PO; CARV3.12 PO; LISI-519 PO; PLAV75TA29 PO; VERA1TAB9 PO
[2017-08-05] MEDS ORDERED: ASPIRIN 81 MG CHEW TAB PO STA (20:41)
[2017-08-05] MEDS ORDERED: NITROGLYCERIN 0.4 MG SL 25 TABS/BTL SL STA (20:41)
[2017-08-05] MEDS ORDERED: ADENOSINE IV SOLN 3 MG/ML 2 ML VIAL ONE ×2 (20:43→20:44)
[2017-08-05] MEDS ORDERED: NITROGLYCERIN-D5W 50 MG/250 ML 250 ML IV PRN ×2 (20:45→21:00)
[2017-08-05] MEDS ORDERED: DILTIAZEM HCL 25 MG/5 ML VIAL IV ONE (21:00)
--- NOTE | 2017-08-05 21:02 | PD ---
HPI Chief Complaint: Cardiac Complaint Time Seen by Provider: 20:38 Travel History International Travel<30 days: No Contact w/Intl Traveler<30days: No Traveled to known affect area: No History of Present Illness HPI The patient is a 61 year old male who presents to the [facility] emergency department with a history of awakening at 6 AM this morning with shortness of breath. He reports that the shortness of breath has been persistent throughout the day. He also reports having a left-sided chest pain. He reports that the pain is different from the pain that he had when he had a myocardial infarction in November 2016. He reports that it is a dull sensation. He denies having any radiation of pain. He denies having any nausea or vomiting. He reports having some diaphoresis today. The patient reports that he has not been taking any aspirin or any of the other medications that he was prescribed previously for the last 2 months. He reports that he has not been able to afford his medications. The patient's past medical history is significant for coronary artery disease, hypertension, hyperlipidemia, history of an irregular heartbeat diagnosed at another facility. He is unsure the name of the irregular heartbeat. The patient reports having a cardiac catheterization in November 2016. He is unsure whether he had any stents placed at that time. Otherwise on review of systems, the patient denies having any recent fevers, cough or congestion, neck pain, abdominal pain, vomiting, diarrhea, urinary symptoms, or neurologic symptoms. [facility] Past Medical History Narrative Medical The patient's past medical history is significant for hypertension, having a non -STEMI in November 2016 status post cardiac catheterization, hyperlipidemia, history of an irregular heartbeat. Heart Rhythm Problems: Yes Cardiovascular Problems: Yes High Cholesterol: Yes Chest Pain: Yes Diminished Hearing: No Hypertension: Yes Tetanus Vaccination: < 5 Years ?: Not Past Surgical History Narrative Surgical The patient's past surgical history is significant for having a lump removed from his face. Social History Alcohol Use: Yes (OCC) Tobacco Use: No Substance Use: No Allergies-Medications (Allergen,Severity, Reaction): Coded Allergies: No Known Allergies (Unverified Allergy, Unknown, 08/05/17) Reported Meds & Prescriptions Reported Meds & Active Scripts Active Lisinopril 5 Mg Tab 5 Mg PO DAILY Plavix (Clopidogrel Bisulfate) 75 Mg Tab 75 Mg PO DAILY Atorvastatin (Atorvastatin Calcium) 40 Mg Tab 40 Mg PO DAILY Aspirin Low Strength (Aspirin) 81 Mg Chew 81 Mg PO DAILY Reported Verapamil ER (Verapamil HCl) 120 Mg Tab 120 Mg PO DAILY Carvedilol 3.125 Mg Tab 3.125 Mg PO BID Review of Systems Except as stated in HPI: all other systems reviewed are Neg General / Constitutional: No: Fever Eyes: No: Visual changes HENT: No: Headaches Cardiovascular: Positive: Chest Pain or Discomfort, Diaphoresis, Dyspnea on exertion Respiratory: Positive: Shortness of Breath, No: Cough Gastrointestinal: No: Nausea, Vomiting, Diarrhea, Abdominal Pain Genitourinary: No: Dysuria Musculoskeletal: No: Pain Skin: No Rash Neurologic: No: Weakness, Focal Abnormalities, Change in Mentation, Slurred Speech, Sensory Disturbance Psychiatric: No: Depression Endocrine: No: Polydipsia Hematologic/Lymphatic: No: Easy Bruising Physical Exam Narrative General: The patient is a well-developed well-nourished male, short of breath appearing on arrival with O2 saturations on room air of 92-93% with a heart rate in the 140s. Head and Neck exam: Head is normocephalic atraumatic. Eyes: EOMI, pupils are equal round and reactive to light. Nose: Midline septum with pink mucous membranes Mouth: Dentition unremarkable. Moist mucus membranes. Posterior oropharynx is not erythematous. No tonsillar hypertrophy. Uvula midline. Airway patent. Neck: No palpable lymphadenopathy. No nuchal rigidity. No thyromegaly. Cardiovascular: Regular sounding tachycardia with a rate in the 140s without murmurs, gallops, or rubs. No pulse deficit to the extremities on simultaneous auscultation and palpation of his radial artery. Lungs: Decreased breath sounds in bilateral lung bases, no wheezes, rhonchi, or crackles are audible. Abdomen: Soft, without tenderness to palpation in all 4 quadrants of the abdomen. No guarding, rebound, or rigidity. Normal bowel sounds are audible. No tenderness on palpation of McBurney's point. Negative Quiroga sign Extremities: No clubbing, cyanosis, or edema. 2+ pulses in all 4 extremities. No calf tenderness on palpation peer Back: No costovertebral angle tenderness to palpation. Neurologic Exam: Grossly nonfocal Skin Exam: No rash noted. Intact skin that is warm and dry. Data Data Last Documented VS Vital Signs Date Time Temp Pulse Resp B/P (MAP) Pulse Ox O2 Delivery O2 Flow Rate FiO2 08/05/17 21:50 99 100 08/05/17 21:25 146 180/133 08/05/17 20:51 18 Nasal Cannula 2.00 Orders Orders Adenosine Inj (Adenocard Inj) (08/05/17 20:43) Complete Blood Count With Diff (08/05/17 20:41) Creatine Kinase (Cpk) (08/05/17 20:41) Ckmb (Isoenzyme) Profile (08/05/17 20:41) Troponin I (08/05/17 20:41) B-Type Natriuretic Peptide (08/05/17 20:41) Prothrombin Time / Inr (Pt) (08/05/17 20:41) Act Partial Throm Time (Ptt) (08/05/17 20:41) Hepatic Functional Panel (08/05/17 20:41) Lipase (08/05/17 20:41) Urinalysis - C+S If Indicated (08/05/17 20:41) Magnesium (Mg) (08/05/17 20:41) Chest, Single Ap (08/05/17 20:41) Iv Access Insert/Monitor (08/05/17 20:41) Ecg Monitoring (08/05/17 20:41) Oximetry (08/05/17 20:41) I-Stat Profile (08/05/17 20:41) I-Stat Creatinine (08/05/17 20:41) Electrocardiogram (08/05/17 20:41) Oxygen Administration (08/05/17 20:41) Aspirin Chew (Aspirin Chew) (08/05/17 20:41) Nitroglycerin Sl (Nitrostat Sl) (08/05/17 20:41) Nitroglycerin-D5w 50 Mg/250 Ml (Nitrogly (08/05/17 20:45) Adenosine Inj (Adenocard Inj) (08/05/17 20:44) Nitroglycerin-D5w 50 Mg/250 Ml (Nitrogly (08/05/17 21:00) Diltiazem Inj (Cardizem Inj) (08/05/17 21:00) Vital Signs (Adult) Q15MX4,Q4H (08/05/17 20:54) Diltiazem Inj (Cardizem Inj) (08/05/17 21:00) Diltiazem Inj (Cardizem Inj) (08/05/17 21:30) Furosemide Inj (Lasix Inj) (08/05/17 21:15) Urinary Catheter Insert/Apply (08/05/17 21:15) CKMB (08/05/17 20:50) CKMB% (08/05/17 20:50) Electrocardiogram (08/05/17 20:31) Arterial Blood Gas (Abg) (08/05/17 22:36) Labs Laboratory Tests Test 08/05/17 20:50 08/05/17 21:30 08/05/17 22:40 White Blood Count 7.8 TH/MM3 Red Blood Count 4.63 MIL/MM3 Hemoglobin 13.8 GM/DL Bedside Hemoglobin 13.9 G/DL Hematocrit 41.8 % Bedside Hematocrit 41.0 % Mean Corpuscular Volume 90.2 FL Mean Corpuscular Hemoglobin 29.8 PG Mean Corpuscular Hemoglobin Concent 33.1 % Red Cell Distribution Width 14.1 % Platelet Count 206 TH/MM3 Mean Platelet Volume 9.9 FL Neutrophils (%) (Auto) 50.2 % Lymphocytes (%) (Auto) 37.0 % Monocytes (%) (Auto) 9.8 % Eosinophils (%) (Auto) 2.7 % Basophils (%) (Auto) 0.3 % Neutrophils # (Auto) 3.9 TH/MM3 Lymphocytes # (Auto) 2.9 TH/MM3 Monocytes # (Auto) 0.8 TH/MM3 Eosinophils # (Auto) 0.2 TH/MM3 Basophils # (Auto) 0.0 TH/MM3 CBC Comment DIFF FINAL Differential Comment Prothrombin Time 12.7 SEC Prothromb Time International Ratio 1.3 RATIO Activated Partial Thromboplast Time 25.5 SEC Bedside Sodium 141 MMOL/L Bedside Potassium 4.0 MMOL/L Bedside Chloride 105 MMOL/L Bedside Blood Urea Nitrogen 29 MG/DL Bedside Creatinine 1.1 MG/DL Bedside Glucose 103 MG/DL Magnesium Level 2.1 MG/DL Total Bilirubin 0.7 MG/DL Direct Bilirubin 0.1 MG/DL Indirect Bilirubin 0.6 MG/DL Aspartate Amino Transf (AST/SGOT) 45 U/L Alanine Aminotransferase (ALT/SGPT) 55 U/L Alkaline Phosphatase 69 U/L Total Creatine Kinase 751 U/L Creatine Kinase MB 14.8 NG/ML Creatine Kinase MB % 2.0 % Troponin I 0.08 NG/ML B-Type Natriuretic Peptide 565 PG/ML Total Protein 6.4 GM/DL Albumin 3.0 GM/DL Lipase 79 U/L Urine Color YELLOW Urine Turbidity CLEAR Urine pH 5.5 Urine Specific Jackson 1.028 Urine Protein 30 mg/dL Urine Glucose (UA) NEG mg/dL Urine Ketones NEG mg/dL Urine Occult Blood TRACE Urine Nitrite NEG Urine Bilirubin NEG Urine Urobilinogen LESS THAN 2.0 MG/DL Urine Leukocyte Esterase NEG Urine RBC 4 /hpf Urine WBC 1 /hpf Urine Hyaline Casts 6 /lpf Urine Mucus FEW /lpf Microscopic Urinalysis Comment CULT NOT INDICATED Blood Gas Puncture Site RT RADIAL Blood Gas Patient Temperature 98.6 Blood Gas HCO3 23 mmol/L Blood Gas Base Excess -0.9 mmol/L Blood Gas Oxygen Saturation 93 % Arterial Blood pH 7.44 Arterial Blood Partial Pressure CO2 34 mmHg Arterial Blood Partial Pressure O2 75 mmHg Arterial Blood Oxygen Content 17.6 Vol % Arterial Blood Carboxyhemoglobin 1.2 % Arterial Blood Methemoglobin 1.0 % Blood Gas Hemoglobin 13.4 G/DL Oxygen Delivery Device BiPAP Blood Gas Ventilator Setting IPAP 10/EPAP 5 Blood Gas Inspired Oxygen 50 % MDM Medical Decision Making Medical Screen Exam Complete: Yes Emergency Medical Condition: Yes Medical Record Reviewed: Yes Differential Diagnosis New onset congestive heart failure, versus recurrent cardiac arrhythmia, versus acute coronary syndrome Narrative Course During the course of the patient's emergency department visit, the patient's history, examination, and differential diagnosis were reviewed with the patient. The patient was placed on a quality assurance monitor final with oximetry and frequent blood pressure monitoring. The patient had IV access obtained and blood work sent for analysis. On arrival in triage the patient was brought in as a straight back after an EKG revealed atrial flutter heart rate of 143, possible acute VT with T waves are inverted in V4, V5, V6. The patient was initially provided Cardizem 20 mg IV. The patient's heart rate came down below 100 and a repeat EKG was done. The patient was noted to be in atrial flutter with a 3-1 conduction apparent. No signs of an acute ST segment elevation VT. The patient's heart rate began to creep up again prior to the Cardizem drip being sent to be started by pharmacy. The patient's O2 saturations began to drop into the upper 80s. The patient was started on BiPAP after aspirin 324 mg was administered 1, sublingual nitroglycerin 1 was administered, nitro drip was started. Then, the patient's Cardizem drip arrived and was started. The patient required an additional Cardizem bolus to improve his heart rate. The patient was noted on chest x-ray to have cardiomegaly with signs of pulmonary edema and fluid overload consistent with a new onset congestive heart failure. The patient was given Lasix 40 mg IV. The patient had a Montero catheter placed to gravity. The patient's laboratory studies were reviewed and remarkable for white count of 7.8, hemoglobin 13.8, platelets 206 with 9.8 monocytes, CMP is remarkable for an AST of 45, BUN 29, alk phos 69, CPK 751 with an MB percent of 2.0, troponin I 0.08, BNP 565, lipase 79. The patient was started on heparin as a bolus and a drip. PT 12.7, INR 1.3, PTT 25.5, urinalysis shows 30 protein, trace occult blood, 4 RBCs, otherwise unremarkable. The patient's results were discussed with the patient, including the plan of care. I explained that further testing and/ or monitoring is indicated based on the patient's history, examination, and/ or laboratory findings. Therefore, I recommended admission for additional evaluation. The patient expressed understanding and was agreeable with this plan. The patient was admitted to the hospital in guarded condition and [facility]. Critical Care Narrative Aggregate critical care time was 35 minutes. Time to perform other separately billable procedures was not included in the critical care time. My time did not include minutes spent treating any other patients simultaneously or on activities that did not directly contribute to the patient's treatment. The services I provided to this patient were to treat and/or prevent clinically significant deterioration that could result in: Respiratory failure, versus recurrent cardiac arrhythmia with cardiovascular collapse I provided critical care services requiring my management, as noted below: Chart data review, documentation time, medication orders and management, vital sign assessments/reviewing monitor data, ordering and reviewing lab tests, ordering and interpreting/reviewing x-rays and diagnostic studies, care of the patient and discussion of the patient with the admitting physicians. Physician Communication Physician Communication The patient's case including history, pertinent physical examination findings, and laboratory studies were discussed with Dr. Hwang. It was agreed that the patient would be [facility] Diagnosis Primary Impression: Atrial flutter Qualified Codes: I48.92 - Unspecified atrial flutter Additional Impressions: New onset of congestive heart failure Elevated troponin Admitting Information Admitting Physician Requests: Admit Radha Ivory MD Aug 05, 2017 21:02
[2017-08-05 21:13] LABS: AUTOMATED NEUTROPHIL # 3.9 TH/MM3 (1.8-7.7); BASOPHIL % 0.3 % (0.0-2.0); EOSINOPHIL # 0.2 TH/MM3 (0-0.4); EOSINOPHIL % 2.7 % (0.0-4.0); HEMATOCRIT 41.8 % (39.0-51.0); HEMOGLOBIN 13.8 GM/DL (13.0-17.0); LYMPHOCYTE # 2.9 TH/MM3 (1.0-4.8); MEAN CELL VOLUME 90.2 FL (80.0-100.0); MEAN CORPUSCULAR HEMOGLOBIN 29.8 PG (27.0-34.0); MEAN CORPUSCULAR HGB CONC 33.1 % (32.0-36.0); MEAN PLATELET VOLUME 9.9 FL (7.0-11.0); MONO % 9.8 % (0.0-8.0); MONOCYTE # 0.8 TH/MM3 (0-0.9); NEUT % 50.2 % (16.0-70.0); PLATELET COUNT 206 TH/MM3 (150-450); RED BLOOD COUNT 4.63 MIL/MM3 (4.50-5.90); RED CELL DISTRIBUTION WIDTH 14.1 % (11.6-17.2); WHITE BLOOD COUNT 7.8 TH/MM3 (4.0-11.0)
[2017-08-05] MEDS ORDERED: DILTIAZEM HCL 25 MG/5 ML VIAL IV PUSH ONE (21:15)
[2017-08-05] MEDS ORDERED: FUROSEMIDE 40 MG/4 ML VIAL IV PUSH ONE (21:15)
[2017-08-05] MEDS: DILTIAZEM INJ 125 MG in SODIUM CHLORIDE 0.9% INJ 100 ML IV PRN (21:21)
--- NOTE | 2017-08-05 21:22 | RADRPT ---
EXAM DATE/TIME: 08/05/2017 20:59 [facility] COMPARISON: CHEST SINGLE AP, November 20, 2016, 21:28. INDICATIONS : Chest pain. MEDICAL HISTORY : Hypertension. CAD SURGICAL HISTORY : None. ENCOUNTER: Initial ACUITY: 1 day PAIN SCORE: 4/10 LOCATION: Bilateral chest FINDINGS: Moderate cardiomegaly with failure. No pleural effusion. No pneumothorax. No infiltrate. The porti on of the bony skeleton visualized is unremarkable. CONCLUSION: Moderate congestive failure Valeriano Dill MD FACR on August 05, 2017 at 21:18 Board Certified Radiologist. This report was verified electronically.
[2017-08-05] MEDS ORDERED: DILTIAZEM HCL 50 MG/10 ML VIAL IV ONE (21:30)
[2017-08-05 21:32] LABS: DIRECT BILIRUBIN ADULT 0.1 MG/DL (0.0-0.2); INTERNATIONAL NORMALIZED RATIO 1.3 RATIO; MAGNESIUM 2.1 MG/DL (1.5-2.5); PROTHROMBIN TIME - PATIENT 12.7 SEC (9.8-11.6)
[2017-08-05 21:33] LABS: INDIRECT BILIRUBIN 0.6 MG/DL (0.0-0.8); TOTAL BILIRUBIN ADULT 0.7 MG/DL (0.2-1.0); TROPONIN I 0.08 NG/ML (0.02-0.05)
[2017-08-05 21:34] LABS: TOTAL PROTEIN 6.4 GM/DL (6.4-8.2)
[2017-08-05 22:31] LABS: BILIRUBIN, URINE NEG (NEG); BLOOD, URINE TRACE (NEG); GLUCOSE,URINE NEG (NEG); HYALINE CAST, URINE 6 /lpf (RARE); KETONE, URINE NEG (NEG); MUCUS URINE FEW /lpf (OCC); NITRITE,URINE NEG (NEG); PH, URINE 5.5 (5.0-8.5); URINE COLOR YELLOW (YELLW/STRAW); URINE LEUKOCYTE ESTERASE NEG (NEG)
[2017-08-05] MEDS ORDERED: HEPARIN SODIUM - IV 10,000 UNITS/10 ML VIAL IV ONE (23:00)
--- NOTE | 2017-08-05 23:07 | HHI.HP ---
HPI Service [facility] Primary Care Physician Andres Malin MD Admission Diagnosis Atrial flutter, new onset chf, elevated troponin Diagnoses: (1) Atrial fibrillation with RVR Diagnosis: Principal (2) NSTEMI (non-ST elevated myocardial infarction) Diagnosis: Principal (3) Respiratory failure Diagnosis: Principal (4) CHF (congestive heart failure) Diagnosis: Principal (5) Rhabdomyolysis Diagnosis: Principal (6) Non-compliance Diagnosis: Principal Travel History International Travel<30 Days: No Contact w/Intl Traveler <30 Da: No Traveled to Known Affected Are: No History of Present Illness This is a 61-year-old male with a PMH of HTN, Hyperlipidemia and CAD who presented to the ER w/ complaints of SOB and chest pain which woke him from sleep. Chest pain substernal, constant, sharp, 8/10, nonradiating. Symptoms progressively worse throughout the day, while in ER noted to be in significant respiratory distress, O2 sat 80's, placed on BIPAP. Also found to be in A-fib/ flutter, currently on Cardizem gtt. H/o NSTEMI 11/2016, s/p Cardiac Cath w/ successful PCI to Left Cx, d/c'd home on ASA, Plavix, Atorvastatin, Lisinopril, Coreg and Verapamil, however pt states he's been non-compliant w/ his meds for the last 3-4 months. On arrival, BP 179/122, HR 144, O2 sat 92% on RA, Afebrile. CBC unremarkable. Chemistry essentially unremarkable. Troponin 0 0.08. CPK 751. BNP 565. INR 1.3. UA negative for UTI. CXR with moderate congestive failure. S/p Lasix in ER w/ 1750ml output at this time. Review of Systems Except as stated in HPI: all other systems reviewed are Neg ROS: 14 point review of systems otherwise negative. Past Family Social History Past Medical History PMH: HTN, Hyperlipidemia and CAD Past Surgical History PAST SURGICAL HISTORY: Left Hand Surgery Allergies: Coded Allergies: No Known Allergies (Unverified Allergy, Unknown, 08/05/17) Family History PAST FAMILY HISTORY: Reviewed. No h/o DM or CAD Social History PAST SOCIAL HISTORY: Occasional alcohol. Negative for tobacco or drugs Physical Exam Vital Signs Vital Signs Date Time Temp Pulse Resp B/P (MAP) Pulse Ox O2 Delivery O2 Flow Rate FiO2 08/05/17 21:50 99 100 08/05/17 21:25 146 180/133 08/05/17 21:21 145 165/130 08/05/17 21:03 139 147/76 08/05/17 20:51 101 18 133/79 (97) 95 Nasal Cannula 2.00 08/05/17 20:50 96 Nasal Cannula 2.00 08/05/17 20:46 21 93 Room Air 08/05/17 20:44 144 21 179/122 (141) 92 Physical Exam PE: GENERAL: Pleasant middle-age male in no acute distress. Currently on BiPAP HEENT: PERRLA, EOMI. No scleral icterus or conjunctival pallor. No lid lag or facial droop. CARDIOVASCULAR: Regular rate and rhythm. No obvious murmurs to auscultation. No chest tenderness to palpation. RESPIRATORY: No obvious rhonchi or wheezing. Clear to auscultation. Breath sounds equal bilaterally. GASTROINTESTINAL: Abdomen soft, non-tender, nondistended. BS normal. MUSCULOSKELETAL: Extremities without clubbing, cyanosis, or edema. No obvious deformities. NEUROLOGICAL: Awake, alert and oriented x4. No focal neurologic deficits. Moving both upper and lower extremities spontaneously. Laboratory Laboratory Tests Test 08/05/17 20:50 08/05/17 21:30 08/05/17 22:40 White Blood Count 7.8 Red Blood Count 4.63 Hemoglobin 13.8 Bedside Hemoglobin 13.9 Hematocrit 41.8 Bedside Hematocrit 41.0 Mean Corpuscular Volume 90.2 Mean Corpuscular Hemoglobin 29.8 Mean Corpuscular Hemoglobin Concent 33.1 Red Cell Distribution Width 14.1 Platelet Count 206 Mean Platelet Volume 9.9 Neutrophils (%) (Auto) 50.2 Lymphocytes (%) (Auto) 37.0 Monocytes (%) (Auto) 9.8 Eosinophils (%) (Auto) 2.7 Basophils (%) (Auto) 0.3 Neutrophils # (Auto) 3.9 Lymphocytes # (Auto) 2.9 Monocytes # (Auto) 0.8 Eosinophils # (Auto) 0.2 Basophils # (Auto) 0.0 CBC Comment DIFF FINAL Differential Comment Prothrombin Time 12.7 Prothromb Time International Ratio 1.3 Activated Partial Thromboplast Time 25.5 Bedside Sodium 141 Bedside Potassium 4.0 Bedside Chloride 105 Bedside Blood Urea Nitrogen 29 Bedside Creatinine 1.1 Bedside Glucose 103 Magnesium Level 2.1 Total Bilirubin 0.7 Direct Bilirubin 0.1 Indirect Bilirubin 0.6 Aspartate Amino Transf (AST/SGOT) 45 Alanine Aminotransferase (ALT/SGPT) 55 Alkaline Phosphatase 69 Total Creatine Kinase 751 Creatine Kinase MB 14.8 Creatine Kinase MB % 2.0 Troponin I 0.08 B-Type Natriuretic Peptide 565 Total Protein 6.4 Albumin 3.0 Lipase 79 Urine Color YELLOW Urine Turbidity CLEAR Urine pH 5.5 Urine Specific [place] 1.028 Urine Protein 30 Urine Glucose (UA) NEG Urine Ketones NEG Urine Occult Blood TRACE Urine Nitrite NEG Urine Bilirubin NEG Urine Urobilinogen LESS THAN 2.0 Urine Leukocyte Esterase NEG Urine RBC 4 Urine WBC 1 Urine Hyaline Casts 6 Urine Mucus FEW Microscopic Urinalysis Comment CULT NOT INDICATED Blood Gas Puncture Site RT RADIAL Blood Gas Patient Temperature 98.6 Blood Gas HCO3 23 Blood Gas Base Excess -0.9 Blood Gas Oxygen Saturation 93 Arterial Blood pH 7.44 Arterial Blood Partial Pressure CO2 34 Arterial Blood Partial Pressure O2 75 Arterial Blood Oxygen Content 17.6 Arterial Blood Carboxyhemoglobin 1.2 Arterial Blood Methemoglobin 1.0 Blood Gas Hemoglobin 13.4 Oxygen Delivery Device BiPAP Blood Gas Ventilator Setting IPAP 10/EPAP 5 Blood Gas Inspired Oxygen 50 Result Diagram: 08/05/172049 Caprini VTE Risk Assessment Caprini VTE Risk Assessment: No/Low Risk (score <= 1) Caprini Risk Assessment Model Point Value = 1 Point Value = 2 Point Value = 3 Point Value = 5 Age 41-60 Minor surgery BMI > 25 kg/m2 Swollen legs Varicose veins or History of unexplained or recurrent spontaneous Oral contraceptives or hormone replacement Sepsis (< 1 month) Serious lung disease, including pneumonia (< 1 month) Abnormal pulmonary function Acute myocardial infarction Congestive heart failure (< 1 month) History of inflammatory bowel disease Medical patient at bed rest Age 61-74 Arthroscopic surgery Major open surgery (> 45 min) Laparoscopic surgery (> 45 min) Malignancy Confined to bed (> 72 hours) Immobilizing plaster cast Central venous access Age >= 75 History of VTE Family history of VTE Factor V Leiden Prothrombin 28070C Lupus anticoagulant Anticardiolipin antibodies Elevated serum homocysteine Heparin-induced thrombocytopenia Other congenital or acquired thrombophilia Stroke (< 1 month) Elective arthroplasty Hip, pelvis, or leg fracture Acute spinal cord injury (< 1 month) Prophylaxis Regimen Total Risk Factor Score Risk Level Prophylaxis Regimen 0-1 Low Early ambulation 2 Moderate Order ONE of the following: *Sequential Compression Device (SCD) *Heparin 5000 units SQ BID 3-4 Higher Order ONE of the following medications: *Heparin 5000 units SQ TID *Enoxaparin/Lovenox 40 mg SQ daily (WT < 150 kg, CrCl > 30 mL/min) *Enoxaparin/Lovenox 30 mg SQ daily (WT < 150 kg, CrCl > 10-29 mL/min) *Enoxaparin/Lovenox 30 mg SQ BID (WT < 150 kg, CrCl > 30 mL/min) AND/OR *Sequential Compression Device (SCD) 5 or more Highest Order ONE of the following medications: *Heparin 5000 units SQ TID (Preferred with Epidurals) *Enoxaparin/Lovenox 40 mg SQ daily (WT < 150 kg, CrCl > 30 mL/min) *Enoxaparin/Lovenox 30 mg SQ daily (WT < 150 kg, CrCl > 10-29 mL/min) *Enoxaparin/Lovenox 30 mg SQ BID (WT < 150 kg, CrCl > 30 mL/min) AND *Sequential Compression Device (SCD) Assessment and Plan Problem List: (1) Atrial fibrillation with RVR ICD Code: I48.91 - Unspecified atrial fibrillation (2) Respiratory failure ICD Code: J96.90 - Respiratory failure, unspecified, unspecified whether with hypoxia or hypercapnia (3) NSTEMI (non-ST elevated myocardial infarction) ICD Code: I21.4 - Non-ST elevation (NSTEMI) myocardial infarction Status: Acute (4) CHF (congestive heart failure) ICD Code: I50.9 - Heart failure, unspecified (5) Rhabdomyolysis ICD Code: M62.82 - Rhabdomyolysis (6) Non-compliance ICD Code: Z91.19 - Patient's noncompliance with other medical treatment and regimen Assessment and Plan A/P: 1. A-fib/A-flutter: A-fib w/ RVR on arrival, s/p Cardizem, noted to be in A- flutter w/ 3:1 conduction, persistent tachycardia, currently on Cardizem gtt. Admit to [facility], continue w/ gtt. 2. NSTEMI: Trop 0.08, possibly related to tachyarrhythmia, however h/o recent NSTEMI non-compliant w/ ASA/Plavix, high risk for ACS. Currently on NTG/ Heparin gtt. Check serial cardiac enzymes. Consult Cardiology for further evaluation/intervention. Morphine prn. 3. CHF: Acute. BNP 565. CXR w/ moderate failure, images reviewed by me. No h/o CHF. Check Echo to eval for systolic/diastolic function. Monitor I/O. S/ p Lasix in ER w/ 1750ml output. 4. Respiratory Failure: secondary to all of the above. Currently on BIPAP, ABG unremarkable on BIPAP 10/5, 100% FIO2, now weaned to 50% FIO2. Continue to wean as tolerated. Monitor I/O as above. 5. Rhabdomyolysis: CPK 751, caution w/ IVF, check serial CPK for trend. U/a negative. 6. Non-Compliance: admits to not taking medications for the last 3-4 months, pt counselled on the need to adhere to medical regimen, relays understanding, states he will take meds "even if I go broke". 7. DVT Prophylaxis: Heparin gtt 8. Social work for d/c planning as needed. 9. Case discussed w/ ER physician at length, labs/records/imaging reviewed by me. Physician Certification 2 Midnight Certification Type: Admission for Inpatient Services Order for Inpatient Services The services are ordered in accordance with Medicare regulations or non- Medicare payer requirements, as applicable. In the case of services not specified as inpatient-only, they are appropriately provided as inpatient services in accordance with the 2-midnight benchmark. Estimated LOS (days): 2 days is the estimated time the patient will need to remain in the hospital, assuming treatment plan goals are met and no additional complications. Post-Hospital Plan: Not yet determined Samia Hwang MD Aug 05, 2017 23:06
[2017-08-05] MEDS ORDERED: MAGNESIUM HYDROXIDE SUSP 30 ML CUP PO PRN (23:15)
[2017-08-05] MEDS ORDERED: SODIUM CHLORIDE 0.9% FLUSH 10 ML FLUSH IV FLUSH PRN (23:15)
[2017-08-05] MEDS ORDERED: MORPHINE SULFATE 2 MG/ML INJ IV PUSH PRN (23:15)
[2017-08-05] MEDS ORDERED: ACETAMINOPHEN 325 MG TAB PO PRN (23:15)
[2017-08-05] MEDS ORDERED: SENNOSIDES 8.6 MG TAB PO PRN (23:15)
[2017-08-05] MEDS ORDERED: LACTULOSE SYRUP 20 GM/30 ML CUP PO PRN (23:15)
[2017-08-05] MEDS ORDERED: BISACODYL 10 MG SUPP RECTAL PRN (23:15)
[2017-08-05] MEDS ORDERED: ACETAMINOPHEN/HYDROcodone 325 MG/5 MG TAB PO PRN (23:15)
[2017-08-05] MEDS ORDERED: ONDANSETRON HCL 4 MG/2 ML VIAL IVP PRN (23:15)
[2017-08-06] VITALS (17 sets, daily range): BP systolic 131–166; BP diastolic 67–118; PULSE 88–149; RESP 16–22; TEMP 97.8–98.7; O2SAT 94–100
[2017-08-06] MEDS: HEPARIN-D5W 25,000 U/250 ML 250 ML IV PRN (00:30)
[2017-08-06 03:33] LABS: ALBUMIN 2.9 GM/DL (3.4-5.0); AST (GOT) 34 U/L (15-37); BICARBONATE 26.3 MEQ/L (21.0-32.0); BLOOD UREA NITROGEN 24 MG/DL (7-18); CHLORIDE 106 MEQ/L (98-107); CREATININE 0.87 MG/DL (0.60-1.30); GLOMERULAR FILTRATION RATE 90 ML/MIN (>89); GLUCOSE,RANDOM 122 MG/DL (74-106); SODIUM (NA) 141 MEQ/L (136-145)
[2017-08-06 03:40] LABS: ALKALINE PHOSPHATASE 65 U/L (45-117); ALT (GPT) 50 U/L (12-78); TOTAL BILIRUBIN ADULT 0.8 MG/DL (0.2-1.0); TOTAL PROTEIN 6.1 GM/DL (6.4-8.2); TROPONIN I 0.07 NG/ML (0.02-0.05)
[2017-08-06 06:19] LABS: AUTOMATED NEUTROPHIL # 4.4 TH/MM3 (1.8-7.7); BASOPHIL % 0.3 % (0.0-2.0); EOSINOPHIL # 0.1 TH/MM3 (0-0.4); EOSINOPHIL % 1.7 % (0.0-4.0); HEMATOCRIT 38.9 % (39.0-51.0); LYMPH % 27.6 % (9.0-44.0); LYMPHOCYTE # 1.9 TH/MM3 (1.0-4.8); MEAN CELL VOLUME 89.5 FL (80.0-100.0); MEAN CORPUSCULAR HGB CONC 33.5 % (32.0-36.0); MEAN PLATELET VOLUME 10.5 FL (7.0-11.0); MONO % 8.6 % (0.0-8.0); MONOCYTE # 0.6 TH/MM3 (0-0.9); NEUT % 61.8 % (16.0-70.0); PLATELET COUNT 185 TH/MM3 (150-450); RED BLOOD COUNT 4.34 MIL/MM3 (4.50-5.90); RED CELL DISTRIBUTION WIDTH 14.1 % (11.6-17.2); WHITE BLOOD COUNT 7.1 TH/MM3 (4.0-11.0)
[2017-08-06] MEDS ORDERED: ASPIRIN 81 MG CHEW TAB PO SCH (09:00)
[2017-08-06] MEDS ORDERED: CARVEDILOL 3.125 MG TAB PO SCH (09:00)
[2017-08-06] MEDS: DILTIAZEM INJ 125 MG in SODIUM CHLORIDE 0.9% INJ 100 ML IV PRN (09:05)
--- NOTE | 2017-08-06 09:21 | MB ---
cc: Castro Ivory MD DATE: 08/06/2017 For evaluation of atrial flutter and troponin. Andrea is a 61-year-old man with a history of coronary artery disease and atrial flutter. Unfortunately, he has no health insurance and he is not compliant. He was living in [place], is now sharing a trailer in [place]. The patient is vague on his history, but records are available to fill this in. He had a non-STEMI 11/21/2016. At the time of the non-STEMI, he had classic anginal symptoms described as chest pressure in the center of his chest. His CPK was 902 with a positive MB fraction. He underwent a cardiac catheterization by Dr. Collins 11/21. At that time, he had balloon angioplasty of the first septal branch with a 2 mm balloon. He had stenting of the distal circumflex with a 2.75 x 30 mm drug-eluting stent, postdilated with a 3.0 balloon at 20 atmospheres of pressure with a good angiographic result. At that time, the right coronary artery was nondominant. The LAD had diffuse disease. The circumflex artery had diffuse disease with a 90% distal stenosis. The third obtuse marginal branch had a 99% lesion but was less than 1 mm in size. Following the stent, it is not clear how long it took medications and what followup he had. The next we know of him is that on 03/26, he went to [facility] with atrial flutter with rapid ventricular response. He converted to sinus rhythm with diltiazem. EF at that time was 40% to 45% with moderate mitral regurgitation. He had [address] Malin 04/21/2017. The patient states he has been out of medications for at least a few months. He woke up yesterday morning with the onset of shortness of breath. He felt a small pain like a twinge, which he said is totally unlike what he had before his OK and before his stents. Does not have any pain in his chest now. He is on IV diltiazem. PAST MEDICAL HISTORY: Includes obesity, hypertension, paroxysmal atrial flutter, coronary artery disease, noncompliance with followup and with medications. PAST SURGICAL HISTORY: Includes he had a sweat gland removed from his face 2015, left hand laceration 2014. MEDICATIONS: He was taking no medications prior to this admission. ALLERGIES: NONE. FAMILY HISTORY: Positive for cancer in his mother and father in his 60s of a heart attack. SOCIAL HISTORY: He says he drinks alcohol lightly, has never smoked before. 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 REVIEW OF SYSTEMS: Negative for bleeding. Remaining review of systems negative. PHYSICAL EXAMINATION: Well-developed, well-nourished male, in no acute distress. VITAL SIGNS: Charted on telemetry. He is in atrial flutter with an increased ventricular rate. HEENT: Unremarkable. NECK: No JVD. No bruits. CHEST: Clear to auscultation. CARDIAC: S1, S2. Irregular rate and rhythm and tachycardic. No murmur or gallop appreciated. ABDOMEN: Soft, nontender. EXTREMITIES: No clubbing, cyanosis or edema. LABORATORIES: Show a creatinine of 0.87. Troponin 0.08 and 0.07. A chest x-ray was interpreted as showing moderate CHF. My view of the chest x-ray shows cardiomegaly and mild vascular congestion. IMPRESSION: Atrial flutter with rapid ventricular response, slightly elevated troponin but without symptoms of acute coronary syndrome, and the troponin curve is flat, probably has some degree of left ventricular dysfunction based on prior evaluations. He does not appear to be in overt heart failure, although the chest x-ray is showing some congestion. RECOMMENDATIONS: A 2-D echo Doppler is ordered. The patient is on heparin and IV diltiazem. I am consulting for evaluation of ablation. Further therapy to be determined. MD EMILY Marie/ANASTASIA , 08:39 AM , 09:20 AM
[2017-08-06] MEDS: DOCUSATE SODIUM 50 MG/SENNA 8.6 MG TAB PO SCH ×2 (09:32→21:00)
[2017-08-06] MEDS: CLOPIDOGREL 75 MG TAB PO SCH (09:33)
[2017-08-06] MEDS: ATORVASTATIN 40 MG TAB PO SCH (09:33)
[2017-08-06 10:21] LABS: TROPONIN I 0.07 NG/ML (0.02-0.05)
[2017-08-06] MEDS: SODIUM CHLORIDE 0.9% FLUSH 10 ML FLUSH IV FLUSH SCH ×2 (10:31→21:00)
--- NOTE | 2017-08-06 14:18 | HHI.PR ---
Subjective Remarks Patient reports he is feeling better. Breathing more comfortably. No chest pain. Objective Vitals Vital Signs Date Time Temp Pulse Resp B/P (MAP) Pulse Ox O2 Delivery O2 Flow Rate FiO2 08/06/17 10:33 96 16 131/99 (110) 99 Nasal Cannula 2.00 08/06/17 09:05 101 131/99 08/06/17 09:05 101 131/99 08/06/17 06:00 92 16 148/80 (102) 94 Nasal Cannula 4.00 08/06/17 05:03 97 16 149/84 (105) 95 4.00 08/06/17 03:15 104 20 149/67 (94) 95 Nasal Cannula 4.00 08/06/17 01:38 97 Nasal Cannula 4.00 08/06/17 01:37 Nasal Cannula 4.00 08/06/17 01:17 144 161/99 08/06/17 01:15 146 16 166/92 (116) 96 BiPAP 50 08/06/17 01:00 144 16 161/99 (119) 97 BiPAP 50 08/06/17 00:30 144 16 159/97 (117) 95 BiPAP 50 08/06/17 00:16 130 115/97 08/06/17 00:00 132 16 136/102 (113) 100 BiPAP 50 08/05/17 23:58 95 50 08/05/17 23:30 118 16 117/77 (90) 96 BiPAP 100 08/05/17 23:00 102 16 140/75 (96) 96 BiPAP 100 08/05/17 22:30 86 18 145/100 (115) 100 BiPAP 100 08/05/17 22:15 80 18 138/85 (102) 100 BiPAP 100 08/05/17 22:00 74 18 125/81 (96) 100 BiPAP 100 08/05/17 21:50 99 100 08/05/17 21:45 75 20 121/70 (87) 100 BiPAP 100 08/05/17 21:30 82 18 118/65 (82) 100 Nasal Cannula 4.00 08/05/17 21:25 146 180/133 08/05/17 21:21 145 165/130 08/05/17 21:03 139 147/76 08/05/17 21:00 102 20 147/76 (99) 97 Nasal Cannula 4.00 08/05/17 20:51 101 18 133/79 (97) 95 Nasal Cannula 2.00 08/05/17 20:50 96 Nasal Cannula 2.00 08/05/17 20:46 21 93 Room Air 08/05/17 20:44 144 21 179/122 (141) 92 I/O 08/05/17 08/05/17 08/05/17 08/06/17 08/06/17 08/06/17 07:00 15:00 23:00 07:00 15:00 23:00 Output Total 1725 ml Balance -1725 ml Output Urine Total 1725 ml Result Diagram: 08/06/17 0500 08/06/17 0252 Objective Remarks GENERAL: This is a well-nourished, well-developed patient, in no apparent distress. CARDIOVASCULAR: Normal rate, irregular rhythm. 2 out of 6 ROSALINE murmur RESPIRATORY: Good respiratory efforts. Breath sounds equal and clear to auscultation bilaterally. GASTROINTESTINAL: Abdomen soft, non-tender, non-distended. Normal active bowel sounds MUSCULOSKELETAL: Extremities without cyanosis, or edema. NEURO: Alert & Oriented x4 to person, place, time, situation. Moves all ext x4 PSYCH: Appropriate mood and affect. A/P Problem List: (1) Atrial fibrillation with RVR ICD Code: I48.91 - Unspecified atrial fibrillation (2) Respiratory failure ICD Code: J96.90 - Respiratory failure, unspecified, unspecified whether with hypoxia or hypercapnia (3) NSTEMI (non-ST elevated myocardial infarction) ICD Code: I21.4 - Non-ST elevation (NSTEMI) myocardial infarction Status: Acute (4) CHF (congestive heart failure) ICD Code: I50.9 - Heart failure, unspecified (5) Rhabdomyolysis ICD Code: M62.82 - Rhabdomyolysis (6) Non-compliance ICD Code: Z91.19 - Patient's noncompliance with other medical treatment and regimen Assessment and Plan 1. A-fib/A-flutter: A-fib w/ RVR on arrival, s/p Cardizem, noted to be in A- flutter w/ 3:1 conduction, persistent tachycardia, currently on Cardizem gtt. -Appreciate cardiology following. 2. NSTEMI: Trop 0.08, possibly related to tachyarrhythmia, however h/o recent NSTEMI non-compliant w/ ASA/Plavix, high risk for ACS. Currently on NTG/ Heparin gtt. Check serial cardiac enzymes. -Cardiology on board 3. CHF: Acute. BNP 565. CXR w/ moderate failure, images reviewed by me. No h/o CHF. Check Echo to eval for systolic/diastolic function. Monitor I/O. S/ p Lasix in ER w/ 1750ml output. 4. Respiratory Failure: secondary to all of the above. Resolving. Status post BiPAP. Supplemental oxygen. Continue to wean as tolerated. Monitor I/O as above. 6. Non-Compliance: admits to not taking medications for the last 3-4 months, pt counselled on the need to adhere to medical regimen, relays understanding, states he will take meds "even if I go broke". 7. DVT Prophylaxis: Heparin gtt Michael Mckee MD Aug 06, 2017 14:17
[2017-08-06] MEDS ORDERED: FUROSEMIDE 20 MG/2 ML VIAL IV PUSH ONE ×2 (22:15→23:45)
--- NOTE | 2017-08-06 22:37 | RADRPT ---
EXAM DATE/TIME: 08/06/2017 22:18 [place] COMPARISON: CHEST SINGLE AP, August 05, 2017, 20:59. INDICATIONS : Short of breath MEDICAL HISTORY : Congestive heart failure. Cardiovascular disease. A-fib SURGICAL HISTORY : None. ENCOUNTER: Subsequent ACUITY: 2 days PAIN SCORE: 0/10 LOCATION: chest FINDINGS: A single view of the chest demonstrates cardiomegaly. No consolidation. Mild edema pattern improved f rom August 05. CONCLUSION: 1. Edema pattern improved from August 05. Trace pleural fluid. Cardiomegaly. Casey Collins MD on August 06, 2017 at 22:28 Board Certified Radiologist. This report was verified electronically.
[2017-08-06] MEDS ORDERED: POTASSIUM CHLORIDE 10 MEQ CONTROLLED RELEASE TAB PO ONE (22:45)
[2017-08-07] VITALS (33 sets, daily range): BP systolic 126–186; BP diastolic 79–108; PULSE 82–99; RESP 20–29; TEMP 98.2–99.9; O2SAT 92–98
[2017-08-07] MEDS: HEPARIN-D5W 25,000 U/250 ML 250 ML IV PRN (00:10)
--- NOTE | 2017-08-07 00:21 | EKG ---
Date Performed: 08/05/2017 Time Performed: 20:52:34 PTAGE: 61 years EKG: ATRIAL FLUTTER/TACHYCARDIA POSSIBLE RIGHT VENTRICULAR CONDUCTION DELAY NONSPECIFIC [address] ABNORMALITY ABNORMAL ECG PREVIOUS TRACING : 11/21/2016 03.21 DOCTOR: Charli Roy Interpretating Date/Time 08/07/2017 00:11:04
--- NOTE | 2017-08-07 00:22 | EKG ---
Date Performed: 08/05/2017 Time Performed: 20:31:19 PTAGE: 61 years EKG: ATRIAL FLUTTER/TACHYCARDIA WITH RAPID VENTRICULAR RESPONSE POSSIBLE RIGHT VENTRICULAR CONDU CTION DELAY INFERIOR MYOCARDIAL INFARCTION ACUTE VA PREVIOUS TRACING : 11/21/2016 03.21 DOCTOR: Charli Roy Interpretating Date/Time 08/07/2017 00:11:10
[2017-08-07] MEDS: DILTIAZEM INJ 125 MG in SODIUM CHLORIDE 0.9% INJ 100 ML IV PRN ×3 (04:00→22:15)
--- NOTE | 2017-08-07 07:51 | PD.CARD.PN ---
Subjective Subjective Remarks No complaints. Objective Medications Current Medications Medications (Trade) Dose Ordered Sig/Cheng Route Start Time Stop Time Status Last Admin Nitroglycerin/ Dextrose 250 ml @ 3 mls/hr TITRATE PRN IV 08/05/17 21:00 08/05/17 21:03 Diltiazem HCl 125 mg/Sodium Chloride 125 ml @ 5 mls/hr TITRATE PRN IV 08/05/17 21:00 08/07/17 04:00 Heparin Sodium/ Dextrose 250 ml @ 10 mls/hr TITRATE PRN IV 08/05/17 23:00 08/07/17 00:10 (NS Flush) 2 ml UNSCH PRN IV FLUSH 08/05/17 23:15 (NS Flush) 2 ml BID IV FLUSH 08/06/17 09:00 08/06/17 10:31 (Zofran Inj) 4 mg Q6H PRN IVP 08/05/17 23:15 (Tylenol) 650 mg Q6H PRN PO 08/05/17 23:15 ([place] 5-325 Mg) 1 tab Q4H PRN PO 08/05/17 23:15 (Morphine Inj) 2 mg Q3H PRN IV PUSH 08/05/17 23:15 (Ewa-Colace) 1 tab BID PO 08/06/17 09:00 08/06/17 09:32 (Milk Of Magnesia Liq) 30 ml Q12H PRN PO 08/05/17 23:15 (Senokot) 17.2 mg Q12H PRN PO 08/05/17 23:15 (Dulcolax Supp) 10 mg DAILY PRN RECTAL 08/05/17 23:15 (Lactulose Liq) 30 ml DAILY PRN PO 08/05/17 23:15 (Lipitor) 40 mg DAILY PO 08/06/17 09:00 08/06/17 09:33 (Plavix) 75 mg DAILY PO 08/06/17 09:00 08/06/17 09:33 (Lopressor) 25 mg Q12HR PO 08/07/17 10:00 (Lasix Inj) 20 mg DAILY IV PUSH 08/07/17 09:00 Vital Signs / I&O Vital Signs Date Time Temp Pulse Resp B/P (MAP) Pulse Ox O2 Delivery O2 Flow Rate FiO2 08/07/17 04:00 90 24 150/79 (102) 94 08/07/17 04:00 90 150/79 08/07/17 03:11 93 40 08/07/17 00:00 98.7 99 20 186/103 (130) 98 08/06/17 22:56 99 BiPAP 50 08/06/17 22:55 99 50 08/06/17 20:00 98.7 88 22 165/118 (134) 96 08/06/17 17:00 130 08/06/17 17:00 97.8 130 20 160/103 (122) 94 08/06/17 16:31 105 16 98 Nasal Cannula 2.00 08/06/17 10:33 96 16 131/99 (110) 99 Nasal Cannula 2.00 08/06/17 09:05 101 131/99 08/06/17 09:05 101 131/99 I/O 08/06/17 08/06/17 08/06/17 08/07/17 08/07/17 08/07/17 07:00 15:00 23:00 07:00 15:00 23:00 Intake Total 300 ml 200 ml Output Total 1725 ml 1500 ml 950 ml Balance -1725 ml -1200 ml -750 ml Intake Oral 300 ml 200 ml Output Urine Total 1725 ml 1500 ml 950 ml Physical Exam GENERAL: Well-nourished, well-developed patient. SKIN: Warm and dry. HEAD: Normocephalic. EYES: No scleral icterus. No injection or drainage. NECK: Supple, trachea midline. No JVD or lymphadenopathy. CARDIOVASCULAR: Irregular rhythm, controlled rate, no rub murmur or gallop. RESPIRATORY: Breath sounds equal bilaterally. No accessory muscle use. GASTROINTESTINAL: Abdomen soft, non-tender, nondistended. EXTREMITIES: No cyanosis, or edema. NEUROLOGICAL: Awake, alert, and oriented x 3. Non-focal. Laboratory Laboratory Tests Test 08/06/17 09:00 08/06/17 16:15 08/06/17 22:25 08/07/17 00:35 Total Creatine Kinase 365 U/L Creatine Kinase MB 8.0 NG/ML Creatine Kinase MB % 2.2 % Troponin I 0.07 NG/ML Activated Partial Thromboplast Time 26.2 SEC 25.9 SEC Blood Gas Puncture Site RT RADIAL Blood Gas Patient Temperature 98.6 Blood Gas HCO3 24 mmol/L Blood Gas Base Excess 0.3 mmol/L Blood Gas Oxygen Saturation 86 % Arterial Blood pH 7.46 Arterial Blood Partial Pressure CO2 34 mmHg Arterial Blood Partial Pressure O2 48 mmHg Arterial Blood Oxygen Content 16.4 Vol % Arterial Blood Carboxyhemoglobin 1.1 % Arterial Blood Methemoglobin 1.4 % Blood Gas Hemoglobin 13.5 G/DL Oxygen Delivery Device NASAL CANNULA Blood Gas Liter Flow 6 L/M Test 08/07/17 04:50 Blood Gas Puncture Site LT RADIAL Blood Gas Patient Temperature 98.6 Blood Gas HCO3 25 mmol/L Blood Gas Base Excess 1.5 mmol/L Blood Gas Oxygen Saturation 93 % Arterial Blood pH 7.43 Arterial Blood Partial Pressure CO2 39 mmHg Arterial Blood Partial Pressure O2 78 mmHg Arterial Blood Oxygen Content 17.1 Vol % Arterial Blood Carboxyhemoglobin 1.0 % Arterial Blood Methemoglobin 1.3 % Blood Gas Hemoglobin 13.0 G/DL Oxygen Delivery Device BiPAP Blood Gas Ventilator Setting 10IPAP/5EPAP Blood Gas Inspired Oxygen 40 % Imaging Last Impressions Chest X-Ray 08/05/172040 Signed Impressions: Service Date/Time: Saturday, August 05, 2017 20:59 - CONCLUSION: Moderate congestive failure Valeriano Dill MD FACR Assessment and Plan Problem List: (1) Atrial flutter ICD Codes: I48.92 - Unspecified atrial flutter Status: Acute Plan: Plan for atrial flutter ablation in a.m. DC IV heparin and IV nitroglycerin. Add Lovenox 1 mg/kg twice daily, last dose 08/07 at 9 PM in preparation for atrial flutter ablation tomorrow morning per my discussion with Dr. Roy. N.p.o. after midnight except meds. Problem Qualifiers (1) Atrial flutter: Qualified Codes: I48.92 - Unspecified atrial flutter Sadia Hayden Aug 07, 2017 07:51
[2017-08-07] MEDS ORDERED: FUROSEMIDE 20 MG/2 ML VIAL IV PUSH SCH (09:00)
[2017-08-07 09:23] LABS: HEMATOCRIT 41.8 % (39.0-51.0); HEMOGLOBIN 13.9 GM/DL (13.0-17.0); MEAN CELL VOLUME 89.2 FL (80.0-100.0); MEAN CORPUSCULAR HEMOGLOBIN 29.7 PG (27.0-34.0); MEAN CORPUSCULAR HGB CONC 33.3 % (32.0-36.0); MEAN PLATELET VOLUME 10.3 FL (7.0-11.0); PLATELET COUNT 194 TH/MM3 (150-450); RED BLOOD COUNT 4.68 MIL/MM3 (4.50-5.90); WHITE BLOOD COUNT 6.6 TH/MM3 (4.0-11.0)
[2017-08-07] MEDS: DOCUSATE SODIUM 50 MG/SENNA 8.6 MG TAB PO SCH ×2 (09:28→22:15)
[2017-08-07] MEDS: ATORVASTATIN 40 MG TAB PO SCH (09:28)
[2017-08-07] MEDS: SODIUM CHLORIDE 0.9% FLUSH 10 ML FLUSH IV FLUSH SCH ×2 (09:28→21:00)
[2017-08-07] MEDS: CLOPIDOGREL 75 MG TAB PO SCH (09:28)
[2017-08-07] MEDS: METOPROLOL TARTRATE 25 MG TAB PO SCH ×2 (09:33→22:15)
[2017-08-07] MEDS: ENOXAPARIN SODIUM 100 MG/ML SYRINGE SQ SCH ×2 (09:34→22:15)
--- NOTE | 2017-08-07 10:02 | MB ---
cc: Charli Roy MD,Andres Butts MD DATE: 08/06/2017 REASON FOR CONSULTATION: Atrial flutter. HISTORY OF PRESENT ILLNESS: Mr. Gipson is a 61-year-old gentleman with history of coronary artery disease, he has previously PTCA plus stent. He had a non-ST elevation [place] in November 2016. He has his hospitalization due to atrial flutter. Gentleman was admitted at [facility]. He was in fast ventricular response. He was cardioverted by Dr. Malin and subsequently discharged home. This gentleman is not taking properly his medication, he is noncompliant. He was admitted to the emergency room due to atrial flutter, high blood pressure and even elevated troponin. He was seen by Dr. Ivory. I was consulted for evaluation and atrial flutter management. The chart was reviewed. The patient was evaluated. ALLERGIES: NONE. SOCIAL HISTORY: This gentleman denies smoking, drinks occasionally. FAMILY HISTORY: Noncontributory to his current medical condition. MEDICATIONS: Currently, he is on nitroglycerine IV, he is on metoprolol 25 mg every 12 hours, he is on Lasix IV, he is on Lipitor 40 mg a day, Plavix 75 mg a day, he is on heparin, as well as Cardizem IV. REVIEW OF SYSTEMS: He is feeling better. He is still having some shortness of breath and a headache. No vomiting, no fever. PHYSICAL EXAMINATION: GENERAL: Alert, fully oriented. VITAL SIGNS: His blood pressure on evaluation 160/103, pulse around 120-130, respiratory rate 18. LUNGS: Ventilated. CARDIOVASCULAR: S1, S2, tachycardic, regular. ABDOMEN: Soft. No mass or bruit. EXTREMITIES: No edema. ELECTROCARDIOGRAM: Shows atrial flutter with ventricular response. LABORATORY DATA: Hemoglobin 13, white blood cell 7.1, potassium is 4.0, creatinine is 0.87. ASSESSMENT AND RECOMMENDATIONS: I discussed the case extensively with Dr. Ivory and I did evaluate personally Ms. Gipson. His troponin is 0.07 currently. He is on nitroglycerine for the high blood pressure. There is no acute ST and T-wave changes. He has atrial flutter with ventricular response. Rate needs to be controlled. Cardizem initiate. He has not been on anticoagulation. He is only on Plavix. Electrophysiology study and ablation discussed. The risks, the nature and the benefits of the procedure were clearly stated to him. Risks include pneumothorax, perforation, stroke and even . He understood and agreed to proceed. The blood pressure needs to be controlled. Nitroglycerine needs to be discontinued, this will be attempted tomorrow. If successful and this gentleman has no chest pain, no shortness of breath, then ablation will be obtained on Sunday. This is the patient's second hospitalization with atrial flutter with ventricular response. I will closely monitor him during the hospitalization. MD JOSEPH Rizzo/ROBERTO , 11:36 PM , 12:10 AM
[2017-08-07 10:49] LABS: CALCIUM 8.4 MG/DL (8.5-10.1); CREATININE 0.84 MG/DL (0.60-1.30)
[2017-08-07] MEDS ORDERED: RESP: ALBUTEROL 2.5 MG/IPRATROPIUM 0.5 MG NEB (PRN) NEB (12:30)
--- NOTE | 2017-08-07 12:30 | HHI.PR ---
Subjective Remarks Patient with significant shortness of breath again this morning. He is put on bipap and I reevaluated. He is more comfortable. On Cardizem drip. Objective Vitals Vital Signs Date Time Temp Pulse Resp B/P (MAP) Pulse Ox O2 Delivery O2 Flow Rate FiO2 08/07/17 12:11 93 08/07/17 11:27 98.4 82 24 136/86 (103) 92 08/07/17 10:01 97 08/07/17 09:00 88 08/07/17 08:00 84 08/07/17 07:53 96 40 08/07/17 07:30 98.2 90 29 157/108 (124) 96 08/07/17 07:30 90 08/07/17 07:00 85 08/07/17 06:00 88 08/07/17 05:00 88 08/07/17 04:00 90 24 150/79 (102) 94 08/07/17 04:00 90 150/79 08/07/17 04:00 83 08/07/17 03:11 93 40 08/07/17 03:00 88 08/07/17 02:00 84 08/07/17 01:00 88 08/07/17 00:00 91 08/07/17 00:00 98.7 99 20 186/103 (130) 98 08/06/17 23:00 100 08/06/17 22:56 99 BiPAP 50 08/06/17 22:55 99 50 08/06/17 22:00 108 08/06/17 21:00 94 08/06/17 20:00 149 08/06/17 20:00 98.7 88 22 165/118 (134) 96 08/06/17 19:00 118 08/06/17 17:00 130 08/06/17 17:00 97.8 130 20 160/103 (122) 94 08/06/17 16:31 105 16 98 Nasal Cannula 2.00 I/O 08/06/17 08/06/17 08/06/17 08/07/17 08/07/17 08/07/17 07:00 15:00 23:00 07:00 15:00 23:00 Intake Total 300 ml 642.5 ml Output Total 1725 ml 1500 ml 950 ml 250 ml Balance -1725 ml -1200 ml -307.5 ml -250 ml Intake Oral 300 ml 200 ml IV Total 442.5 ml Output Urine Total 1725 ml 1500 ml 950 ml 250 ml Result Diagram: 08/07/17 0819 08/07/17 0955 Objective Remarks GENERAL: This is a well-nourished, well-developed patient, on bipap. CARDIOVASCULAR: Normal rate, irregular rhythm. 2 out of 6 ROSALINE murmur RESPIRATORY: crackles bilateral bases. Faint expiratory wheezing. GASTROINTESTINAL: Abdomen soft, non-tender, non-distended. Normal active bowel sounds MUSCULOSKELETAL: Extremities without cyanosis, or edema. NEURO: Alert & Oriented x4 to person, place, time, situation. Moves all ext x4 PSYCH: Appropriate mood and affect. A/P Problem List: (1) Atrial fibrillation with RVR ICD Code: I48.91 - Unspecified atrial fibrillation (2) Respiratory failure ICD Code: J96.90 - Respiratory failure, unspecified, unspecified whether with hypoxia or hypercapnia (3) NSTEMI (non-ST elevated myocardial infarction) ICD Code: I21.4 - Non-ST elevation (NSTEMI) myocardial infarction Status: Acute (4) CHF (congestive heart failure) ICD Code: I50.9 - Heart failure, unspecified (5) Rhabdomyolysis ICD Code: M62.82 - Rhabdomyolysis (6) Non-compliance ICD Code: Z91.19 - Patient's noncompliance with other medical treatment and regimen Assessment and Plan 1. A-fib/A-flutter: A-fib w/ RVR on arrival, s/p Cardizem, noted to be in A- flutter w/ 3:1 conduction, persistent tachycardia, currently on Cardizem gtt. -Appreciate cardiology following. - EP, Dr. Roy planning for ablation tomorrow 2. NSTEMI: Trop 0.08, possibly related to tachyarrhythmia, however h/o recent NSTEMI non-compliant w/ ASA/Plavix, high risk for ACS. On therapeutic Lovenox. -Cardiology on board 3. CHF: Acute. BNP 565. Echo to eval for systolic/diastolic function.Give additional Lasix 40 mg X1. Monitor I/O. 4. Respiratory Failure: secondary to all of the above. Cont bipap PRN. Supplemental oxygen. Monitor I/O as above. 6. Non-Compliance: admits to not taking medications for the last 3-4 months, pt counselled on the need to adhere to medical regimen, relays understanding, states he will take meds 7. DVT Prophylaxis: Heparin gtt Michael Mckee MD Aug 07, 2017 12:30
[2017-08-07] MEDS ORDERED: FUROSEMIDE 40 MG/4 ML VIAL IV PUSH ONE (12:45)
--- NOTE | 2017-08-07 14:25 | ECHRPT ---
Indication: HEART FAILURE CONCLUSIONS The left ventricular systolic function is mildly reduced with an estimated ejection fraction in the range of 45- 50%. Normal left ventricular size. Mild concentric left ventricular hypertrophy. No regional wall motion abnormalities are present. Kgbf-bb-uyeszgbh mitral valve regurgitation. Diffuse calcification of the aortic valve. BP: 131 / 99 HR: 101 Rhythm: Atrial fibrillation MEASUREMENTS (Male / Female) Normal Values Technical Quality:Fair 2D ECHO LV Diastolic Diameter PLAX 6.0 cm 4.2 - 5.9 / 3.9 - 5.3 cm LV Systolic Diameter PLAX 5.0 cm IVS Diastolic Thickness 1.2 cm 0.6 - 1.0 / 0.6 - 0.9 cm LVPW Diastolic Thickness 1.3 cm 0.6 - 1.0 / 0.6 - 0.9 cm LV Relative Wall Thickness 0.4 LVOT Diameter 2.0 cm LA Systolic Diameter LX 5.6 cm 3.0 - 4.0 / 2.7 - 3.8 cm LV Ejection Fraction MOD 4C 48.9 % LV Cardiac Index MOD 4C 4650.9 cm/minm LV Ejection Fraction 4C AL 50.3 % LV Cardiac Index 4C AL 4976.9 cm/minm M-MODE LV Diastolic Diameter MM 6.6 cm 4.2 - 5.9 / 3.9 - 5.3 cm LV Systolic Diameter MM 5.4 cm LV Ejection Fraction MM Teich 37.7 % LV Cardiac Index MM Teich 3676.6 cm/minm IVS Diastolic Thickness MM 1.2 cm 0.6 - 1.0 / 0.6 - 0.9 cm LVPW Diastolic Thickness MM 1.2 cm 0.6 - 1.0 / 0.6 - 0.9 cm LV Relative Wall Thickness MM 0.4 0.24 - 0.42 / 0.22 - 0.42 LV Mass Index MM 162.2 g/m 49 - 115 / 43 - 95 g/m Aortic Root Diameter MM 2.8 cm LA Systolic Diameter MM 4.9 cm LA Ao Ratio MM 1.8 AV Cusp Separation MM 1.7 cm DOPPLER AV Peak Velocity 170.0 cm/s AV Peak Gradient 11.6 mmHg LVOT Peak Velocity 107.0 cm/s LVOT Peak Gradient 4.6 mmHg AV Area Cont Eq pk 2.0 cm MV Area PHT 5.8 cm LV E' Lateral Velocity 7.9 cm/s LV E' Septal Velocity 6.2 cm/s TR Peak Velocity 290.0 cm/s TR Peak Gradient 33.6 mmHg Right Atrial Pressure 10.0 mmHg Pulmonary Artery Systolic Pressu 43.6 mmHg Right Ventricular Systolic Press 43.6 mmHg PV Peak Velocity 73.3 cm/s PV Peak Gradient 2.1 mmHg FINDINGS LEFT VENTRICLE The left ventricular systolic function is mildly reduced with an estimated ejection fraction in the range of 45- 50%. Normal left ventricular size. Mild concentric left ventricular hypertrophy. No regional wall motion abnormalities are present. RIGHT VENTRICLE Normal right ventricular size and systolic function. RIGHT ATRIUM The right atrial size is normal. ATRIAL SEPTUM Normal atrial septal thickness without atrial level shunting by limited color doppler interrogation. AORTA The aortic root and proximal ascending aorta are normal in size on limited imaging. MITRAL VALVE Structurally normal mitral valve. Lhkm-bj-[id number] mitral valve regurgitation. AORTIC VALVE Trileaflet aortic valve. Diffuse calcification of the aortic valve. TRICUSPID VALVE Structurally normal tricuspid valve. No tricuspid valve stenosis or regurgitation. PULMONARY VALVE No pulmonary valve regurgitation or stenosis. VESSELS The inferior vena cava is normal in size. PERICARDIUM No pericardial effusion. Kev Boyd MD, FACC, FSCAI (Electronically Signed) Final Date:07 August 2017 14:24
[2017-08-07] MEDS: FUROSEMIDE 20 MG/2 ML VIAL IV PUSH SCH (17:05)
[2017-08-08] VITALS (25 sets, daily range): BP systolic 112–138; BP diastolic 72–93; PULSE 82–103; RESP 20–24; TEMP 98.3–98.5; O2SAT 93–99
[2017-08-08] MEDS ORDERED: LACTATED RINGER'S 1000 ML IV PRN (02:15)
[2017-08-08] MEDS ORDERED: POVIDONE IODINE 5% (ANTISEPSIS KIT) 4 APPLICATIONS EACH NARE PRN (02:15)
[2017-08-08] MEDS ORDERED: SODIUM CHLORID 0.9% 500 ML IV PRN (02:15)
[2017-08-08] MEDS ORDERED: CHLORHEXIDINE GLUCONATE 2 % 1 PACK (2 CLOTHS) TOPICAL PRN (02:15)
[2017-08-08 06:44] LABS: HEMATOCRIT 38.5 % (39.0-51.0); HEMOGLOBIN 12.9 GM/DL (13.0-17.0); MEAN CELL VOLUME 88.8 FL (80.0-100.0); MEAN CORPUSCULAR HEMOGLOBIN 29.6 PG (27.0-34.0); MEAN CORPUSCULAR HGB CONC 33.4 % (32.0-36.0); MEAN PLATELET VOLUME 9.9 FL (7.0-11.0); PLATELET COUNT 184 TH/MM3 (150-450); RED BLOOD COUNT 4.34 MIL/MM3 (4.50-5.90); RED CELL DISTRIBUTION WIDTH 13.8 % (11.6-17.2); WHITE BLOOD COUNT 7.6 TH/MM3 (4.0-11.0)
[2017-08-08 07:04] LABS: BICARBONATE 26.2 MEQ/L (21.0-32.0); CALCIUM 8.1 MG/DL (8.5-10.1); CREATININE 0.73 MG/DL (0.60-1.30)
[2017-08-08] MEDS ORDERED: PROTAMINE SULFATE 50 MG/5 ML VIAL ONE (07:17)
[2017-08-08] MEDS ORDERED: HEPARIN SODIUM - IV 10,000 UNITS/10 ML VIAL ONE (07:17)
[2017-08-08] MEDS ORDERED: ISOPROTERENOL HCL 0.2 MG/ML AMP IV ONE (07:53)
[2017-08-08] MEDS ORDERED: AMIODARONE HCL 150 MG/3 ML VIAL ONE (08:37)
[2017-08-08] MEDS: FUROSEMIDE 20 MG/2 ML VIAL IV PUSH SCH ×2 (09:00→17:46)
[2017-08-08] MEDS: SODIUM CHLORIDE 0.9% FLUSH 10 ML FLUSH IV FLUSH SCH ×2 (09:00→21:00)
--- NOTE | 2017-08-08 09:07 | CATHPROC ---
Patient Name: ISABELL TORIBIO Study #: [id number] Initial MD: Charli Roy Date of : 1955 Study Date: 08/08/2017 Cardiac Catheterization Report 08/08/2017 9:24:02 AM Financial #: [id number] 1 of 9 Patient Name: ISABELL TORIBIO Study #: [id number] Initial MD: Charli Roy Date of : 1955 Study Date: 08/08/2017 Entire Case Report Patient Information Patient Name ISABELL TORIBIO Date of 1955 Age 61 years Financial # [id number] Gender M AlternateID Lab Number 2 Room Number 254 Height (in) 72.0 Height (cm) 182.8 BSA 2.28 Weight (lbs) 233.2 Weight (kg) 106.0 Patient Address/Phone Number Home Address [facility] Home Phone Number [address] [facility] [address] Study Information Study Number Admission Scheduled Start Study Start [id number] Aug 05 2017 10:58PM 08/07/2017 Aug 08 2017 6:50AM [place] Service Electrophysiology Study Admit Source Facility Department Other [facility] - Site Inspector Physician and Clinical Staff Initial Charli Ellis Licensed Acupuncturist Grace Soria RCIS Other Anesthesia, PET HANDLER Recorder Katy Hoskins,RN Scrub Shan Kramer,(R) Procedures Performed Procedure Location (Site) Vessel Name Ablation Procedure Cardioversion RF Ablation Isthmus Other 08/08/2017 9:24:02 AM Financial #: [id number] 2 of 9 Patient Name: ISABELL TORIBIO Study #: [id number] Initial MD: Charli Roy Date of : 1955 Study Date: 08/08/2017 Equipment Time Inside Finisher Description Size Mfg Part Number Used/Scraped BIOSENSE BRADY CATHETER, CELSIUS DS, 8MM, F [id number] 08:00 FR 7 Used INC. TYPE QUAD *[id number] 06:51 [employer] PACK, CCL CUSTOM * Used *[id number] 06:51 MEDLINE PACER BRAR, LIMB * 2530 *[id number] Used [id number] 06:51 [employer] MED[employer] BLANKET,WARM AIR CCL * Used *[id number] 06:51 [employer] CATHETER, JSN, QUAD FR 5 Used *[id number] 06:51 [employer] CATHETER, JSN, QUAD FR 5 Used *[id number] 06:51 [employer] CATHETER, JSN, QUAD FR 5 Used *[id number] 06:51 [employer] MED[employer] CATHETER, JSN, QUAD FR 5 Used *[id number] 06:51 [employer] MEDICAL ELECTRODE KIT, JEANNE X SURFACE * Used *[id number] 149265 06:51 [employer] SHEATH, EPS, FR5 FAST CATH FR 5 Used *[id number] 06:51 [employer] SHEATH, EPS, FR5 FAST CATH FR 5 Used *[id number] 06:51 [employer] SHEATH, EPS, FR5 FAST CATH FR 5 Used *[id number] 06:53 [employer] SHEATH, EPS, FR6 FAST CATH FR 6 Used *[id number] [id number] 06:52 [employer] SHEATH, EPS, FR8 FAST CATH FR 8 Used *[id number] [facility] PAD, ELECTROSURGICAL 06:51 * [id number] *[id number] Used SURGICAL GROUNDING (BLUE) Insurance Information Insurance Payor None Third Alliance Party Third Alliance Party Number SELF PAY SP History: Allergies Allergy Reaction No Known Allergies History: Risk Factors Hypertension Dyslipidemia Yes Yes Labs 08/08/2017 9:24:02 AM Financial #: [id number] Patient Name: ISABELL TORIBIO Study #: [id number] Initial MD: Charli Roy Date of : 1955 Study Date: 08/09/19 18 Hgb (g/dl) Hct (%) RBC (MIL/MM3) WBC (l/cumm) Platelets (thousands) 11.60-17.00 35.00-51.00 4.00-5.90 4.00-11.00 150.00-450.00 13.0 41 4.6 6.6 194 Glucose (mg/dl) BUN (mg/dl) Creatinine (mg/dl) BUN:Creatinine (1:x) 74.00-106.00 7.00-18.00 0.50-1.30 10.00-20.00 109 15 0.8 18.8 Na (meq/l) K (meq/l) 136.00-145.00 3.50-5.10 140 3.6 INR (PTT:PT) 0.90-1.10 1.3 Medication Medication Total Dose (Bolus/Oral) Medication Total Dosage/Unit 1% XYLOCAINE 40 mL AMIODARONE 300 mg METOPROLOL 5 mg Medications (Bolus/Oral) Medication Time Given Dosage/Unit Administered By Reason 1% XYLOCAINE 08/08/2017 7:45:40 AM 20 mL Charli Roy Patient arrived on 20 mL 1% XYLOCAINE given by Charli Roy in Left Groin via Subcutaneous. 1% XYLOCAINE 08/08/2017 7:48:03 AM 20 mL Charli Roy Patient arrived on 20 mL 1% XYLOCAINE given by Charli Roy in Right Groin via Subcutaneous. METOPROLOL 08/08/2017 8:21:18 AM 5 mg Anesthesia, PET HANDLER As per physicians ve rbal order 5 mg METOPROLOL given in lab by Anesthesia, PET HANDLER via Peripheral IV. Ordered by Charli Roy. Reason: As per physicians verbal order. AMIODARONE 08/08/2017 8:36:48 AM 300 mg Anesthesia, PET HANDLER As per physicians v erbal order 300 mg AMIODARONE given in lab by Anesthesia, PET HANDLER via Peripheral IV. Ordered by Charli Roy. Reaso n: As per physicians verbal order. Medication (Drip) Medication Time Given Dosage/Unit Concentration/Unit Diluent (ml) Solution CARDIZEM 08/08/2017 7:10:11 AM 12.5 mg/hr 125 mg 100 NaCl .9 Patient arrived on 12.5 mg/hr CARDIZEM in Right Antecubital via Peripheral IV. Pump/Drip Flow = 10 ml /hr using NaCl .9 with a concentration of 125 mg in 100 ml. ISUPREL 08/08/2017 8:07:35 AM 5 mcg/min 1 mg 250 NaCl .9 5 mcg/min ISUPREL given in lab by Anesthesia, PET HANDLER via Peripheral IV. Pump/Drip Flow = 75 ml/hr using NaCl .9 with a concentration of 1 mg in 250 ml. Ordered by Charli Roy. Reason: As per physicians verbal order. 08/08/2017 9:24:02 AM Financial #: [id number] 4 of 9 Patient Name: ISABELL TORIBIO Study #: [id number] Initial MD: Charli Roy Date of : 1955 Study Date: 08/08/2017 Initial Case Assessment Cardiovascular HR NIBP Chest Pain 97 177/97 0 Edema Present Skin color Skin None Normal Warm Dry Circulatory - Right Pulses Dorsalis Pedis 1 Scale (0,1,2,3,4,d) Circulatory - Left Pulses Dorsalis Pedis 1 Scale (0,1,2,3,4,d) Circulatory - Lower Extremities Color Lower Right Color Lower Left Normal Normal Neurological State Oriented to time-place- Alert Moves all extremities person Respiration - General Respiration Rate SpO2 (%) Short Of Breath (B/min) 24 91 Yes 08/08/2017 9:24:02 AM Financial #: [id number] 5 of 9 Patient Name: ISABELL TORIBIO Study #: [id number] Initial MD: Charli Roy Date of : 1955 Study Date: 08/08/2017 Final Case Assessment Cardiovascular HR Rhythm NIBP Chest Pain 60 af 91/58 0 Edema Present Skin color Skin None Normal Warm Dry Circulatory - Right Pulses Dorsalis Pedis 1 Scale (0,1,2,3,4,d) Circulatory - Left Pulses Dorsalis Pedis 1 Scale (0,1,2,3,4,d) Circulatory - Lower Extremities Color Lower Right Color Lower Left Normal Normal Neurological State Lethargic Moves all extremities Respiration - General Respiration Rate SpO2 (%) O2 (lpm) (B/min) 21 90 8 Chronological Log Time Study Chronological Log 7:10:10 Patient arrived via Bed. Patient arrived on 12.5 mg/hr CARDIZEM in Right Antecubital via Peripheral IV. Pump/Drip Flow = 10 ml/hr using NaCl 7:10:11 .9 with a concentration of 125 mg in 100 ml. 7:10:14 Patient Name, D.O.B, / Armband Verified By R.N. 7:10:16 Consent signed by the physician and the patient and verified by the Site Inspector staff. 7:10:18 Pre-op and post- op instructions given; patient acknowledges understanding of instructions. 7:10:21 Verbal Stimulation=2 Physical Stimulation=2 Airway=2 Respiration=2 TOTAL=8. (0=absent, 1=li mited, 2=present) 7:10:25 Anesthesia at bedside. Assumes care of patient. 7:11:29 Patient has been NPO for More than 6Hrs. 7:11:33 Skin Breakdown- 08/08/2017 9:24:02 AM Financial #: [id number] Patient Name: ISABELL TORIBIO Study #: [id number] Initial MD: Charli Roy Date of : 1955 Study Date: 08/08/2017 7:12:35 Patient Warmer Placed on the Table. 7:12:39 Disposable Defibrillator Pads Placed On Patient. 7:12:43 Margie Prominences Protected 7:18:38 A # 20 IV was noted in the Hand (right). Grade = 0 0.9ns kvo 7:18:47 A # 20 IV was noted in the Forearm (right). Grade = 0 cardizem gtt as from floor 7:18:49 A # 18 IV was noted in the Antecubital (left). Grade = 0 0.9ns kvo 7:18:50 History and physical on the chart or being dictated. Assessment: Initial Case, HR=97 BPM, EFYB=738/97 mmhg, Chest Pain=0, Edema=None, Color=Normal, Skin = Warm, Dry Right Pulses: Eben Ped=1 Left Pulses: Eben Ped=1 7:20:59 Lower Right Extremities: Color=Normal Lower Left Extremities: Color=Normal Neurological: State=Alert, Ox3, MERCHANT Respiration: Resp=24 B/min, SpO2=91 %, Short of Breath 7:21:36 Table restraints applied according to hospital policy 7:31:48 Bilateral groins prepped with 2% chlorhexidine, and draped after a 3 minute waiting time. 7:40:00 MD paged 7:44:37 Reference ECG taken Time Out. Correct patient, procedure, procedure equipment, site and side verified with physicia n present. Time 7:45:00 concurred by MD, individual staff and PET HANDLER. Time Out #2 - Consents verified, patient in correct position, all results are labled and displa yed, safety precautions 7:45:18 taken, antibiotics administered. Time out concurred by MD, individual staff and PET HANDLER in procedu re 7:45:34 Case Start 7:45:40 Patient arrived on 20 mL 1% XYLOCAINE given by Charli Roy in Left Groin via Subcutaneous . 7:46:02 Vascular access was obtained in the Fem Vein (left). 7:46:55 Vascular access was obtained in the Fem Vein (left). 7:46:56 Vascular access was obtained in the Fem Vein (left). 7:46:58 A SHEATH, EPS, FR5 FAST CATH FR 5 was advanced into the Fem Vein (left) using the Modified Seldinger technique. 7:47:04 A SHEATH, EPS, FR5 FAST CATH FR 5 was advanced into the Fem Vein (left) using the Modified Seldinger technique. 7:47:07 A SHEATH, EPS, FR5 FAST CATH FR 5 was advanced into the Fem Vein (left) using the Modified Seldinger technique. 7:47:53 Cardizem gtt off per Dr Roy's order. 7:48:03 Patient arrived on 20 mL 1% XYLOCAINE given by Charli Roy in Right Groin via Subcutaneou s. 7:49:00 Vascular access was obtained in the Fem Vein (right). 7:49:05 Vascular access was obtained in the Fem Vein (right). 7:49:20 A SHEATH, EPS, FR6 FAST CATH FR 6 was advanced into the Fem Vein (right) using the Modified Seldinger technique. 7:49:28 A SHEATH, EPS, FR8 FAST CATH FR 8 was advanced into the Fem Vein (right) using the Modified Seldinger technique. A CATHETER, JSN, QUAD FR 5 was advanced vis Fem Vein (left) and placed in the CS. Placement was visually 7:50:10 confirmed under fluoroscopy. A CATHETER, JSN, QUAD FR 5 was advanced vis Fem Vein (left) and placed in the HIS. Placement wa s visually 7:50:23 confirmed under fluoroscopy. A CATHETER, JSN, QUAD FR 5 was advanced vis Fem Vein (left) and placed in the HRA. Placement wa s visually 7:50:30 confirmed under fluoroscopy. 08/08/2017 9:24:02 AM Financial #: [id number] 7 of 9 Patient Name: ISABELL TORIBIO Study #: [id number] Initial MD: Charli Roy Date of : 1955 Study Date: 08/08/2017 A CATHETER, JSN, QUAD FR 5 was advanced vis Fem Vein (right) and placed in the RVA. Placement w as visually 7:50:43 confirmed under fluoroscopy. 7:53:03 EPS in progress A CATHETER, CELSIUS DS, 8MM, F TYPE QUAD FR 7 was advanced vis Fem Vein (right) and placed in t he Isthmus. 8:00:23 Placement was visually confirmed under fluoroscopy. 8:00:46 RF Ablation of the Isthmus with a eps. 5 mcg/min ISUPREL given in lab by Anesthesia, PET HANDLER via Peripheral IV. Pump/Drip Flow = 75 ml/hr using NaCl .9 with 8:07:35 a concentration of 1 mg in 250 ml. Ordered by Charli Roy. Reason: As per physicians verbal o rder. 8:17:13 Eps in progress 8:18:33 Isuprel off. 8:19:07 Monitor sr 8:19:40 Monitor AF 5 mg METOPROLOL given in lab by Anesthesia, PET HANDLER via Peripheral IV. Ordered by Charli Roy. R alie: As per 8:21:18 physicians verbal order. 8:24:09 ECG rhythm of AF noted. Patient cardioverted at 200 joules. Success synch 8:24:15 Monitor SR 8:26:30 Monitor AF. MD aware 8:35:02 ECG rhythm of AF noted. Patient cardioverted at 300 joules. Success synch 8:36:34 Back in AF 300 mg AMIODARONE given in lab by Anesthesia, PET HANDLER via Peripheral IV. Ordered by Charli Roy. Reason: As per 8:36:48 physicians verbal order. 8:48:16 ECG rhythm of AF noted. Patient cardioverted at 200 joules. Success synch 8:50:00 Catheter(s) removed without difficulty 8:51:00 right groin sheaths removed; pressure applied to access site by DB. 8:51:59 Left groin sheaths removed; pressure applied to access site by DC. 9:01:56 Sterile dressings applied to sites. Sites wnl. 9:02:10 Case End 9:02:28 No case complications noted. 9:02:29 Cine recording checked. 9:02:31 Defibrillator and ground pads removed. Skin intact. 9:02:35 Ablation procedure performed: Aflutter. 9:02:46 EP Procedure was performed. 9:03:05 PACU called. Spoke to Mela. 9:03:28 Bedside Report will be given. Assessment: Final Case, HR=60 BPM, Rhythm=af, NIBP=91/58 mmhg, Chest Pain=0, Edema=None, Color= Normal, Skin = Warm, Dry Right Pulses: Eben Ped=1 Left Pulses: Eben Ped=1 9:04:55 Lower Right Extremities: Color=Normal Lower Left Extremities: Color=Normal Neurological: State=Lethargic, MERCHANT Respiration: Resp=21 B/min, SpO2=90 %, O2=8 lpm 9:08:32 Called PACU Cipriano. Pt to PACU lisa TELLEZ. 9:10:[address] [facility] 08/08/2017 9:24:02 AM Financial #: [id number] Patient Name: ISABELL TORIBIO Study #: [id number] Initial MD: Charli Roy Date of : 1955 Study Date: 08/08/2017 End Study - Contrast Media Used In Study Contrast Total Opened (mL) Total Used (mL) Total Wasted (mL) Unspecified 0 0 0 End Study - Maximum Contrast Load Max Contrast Load (mL) 662.5 End Study - Radiation Exposure Fluoro Time (minutes) 1.9 End Study - Patient Disposition Complications Transferred To Interventional Outcome No Telemetry Bed a partial success 08/08/2017 9:24:02 AM Financial #: [id number]
--- NOTE | 2017-08-08 09:15 | MA ---
cc: Charli Ryo MD DATE: 08/08/2017 PROCEDURE: Electrophysiologic study, CS cannulation, 3-D mapping, radiofrequency ablation of atrial flutter, induction of atrial fibrillation and cardioversion. INDICATIONS: Mr. Gipson is a 61-year-old gentleman with coronary artery disease, previous hospitalization due to atrial flutter, previous cardioversion, referred for electrophysiology study and ablation. Risks, the nature and the benefits of the procedure were clearly said to him. Risks include pneumothorax, cardiac perforation, stroke, need for open heart surgery and even . The patient understood and agreed to proceed. PROCEDURE: After written informed consent was obtained, the patient was brought to the EP lab where he was prepped and draped in the usual sterile fashion. Conscious sedation was initiated and maintained throughout the procedure by the anesthesiologist. Once sedation verified, the right inguinal area was anesthetized with 2% Xylocaine. Using modified Seldinger technique, the right femoral vein was cannulated on 2 occasions. Two guidewires were advanced over the wire. A 6 and an 8-[place] Hemaquet were advanced. Then, the left femoral vein was cannula on 3 occasions. Three guidewires were advanced over the wire, two 5-[place] Hemaquets were advanced. Then, under fluoroscopic guidance through the 5 and 6-[place] Hemaquet, four 5-[place] Maria Isabel curved quadripolar electrophysiology catheters were advanced and positioned at the His, the upper right atrium, coronary sinus and right ventricular apex. Basic interval was measured. The patient was in sinus rhythm. They were within normal limits. At this point, an atrial pacing protocol was performed. During atrial pacing protocol no flutter was induced. Then pacing from the coronary sinus showed no preexcitation. No tachyarrhythmia was induced. At that point, Isuprel was infused. No tachyarrhythmia was induced. At that point, because the patient has clinical atrial flutter, I decided to proceed with ablation of the critical isthmus. Through the 8-[place] Hemaquet, a [employer] F-curved 8-mm mapping and radiofrequency ablation catheter was advanced. Using [employer] endocardial solution and mapping system, a 3-dimensional configuration of the right atrium was obtained. Then, the catheter was put at the critical isthmus. Radiofrequency energy was delivered. Then, pacing lateral to the last early activation to the His converted the CS to get a line of block. At that point, I decided to proceed with atrial pacing protocol again. No tachyarrhythmia was induced. Isuprel was infused at 10 mcg. No tachyarrhythmia was induced. At that point procedure was complete. All catheters were removed. While the patient was on the table, the patient developed atrial fibrillation. Beta birdie was given. Cardioversion was attempted, the patient back into sinus rhythm. 1. ECHOCARDIOGRAM: At baseline, the patient was in sinus rhythm. Postprocedure electrocardiogram was unchanged. 2. BASIC INTERVAL: Base cycle length was around 780 millisecond. 3. TACHYARRHYTHMIA: Atrial flutter was ablated. Atrial fibrillation was cardioverted. CONCLUSIONS: Successful electrophysiology study, mapping and radiofrequency ablation of atrial flutter, cardioversion of atrial fibrillation. COMMENT AND RECOMMENDATIONS: The patient is going to need to be on anticoagulation, gentleman with multiple risk factors. Eliquis will be initiated in this gentleman, who will be back again in 2 weeks for ablation. ADDENDUM: While I am dictating the case, the patient went back into atrial fibrillation. I will attempt cardioversion again and possible amiodarone use. MD JOSEPH Rizzo/DANIELLE , 08:30 AM , 09:14 AM
[2017-08-08] MEDS ORDERED: MIDAZOLAM HCL 2 MG/2 ML VIAL ONE (09:29)
[2017-08-08] MEDS ORDERED: LORazepam 2 MG/ML VIAL IV PUSH PRN (10:30)
[2017-08-08] MEDS ORDERED: SODIUM CHLOR 0.9% 250 ML INJ 250 ML IV PRN (10:30)
[2017-08-08] MEDS ORDERED: oxyCODONE/ACETAMINOPHEN 5 MG/325 MG TAB PO PRN ×2 (10:30)
[2017-08-08] MEDS ORDERED: ATROPINE SULFATE 1 MG/ML VIAL IV PUSH PRN (10:30)
[2017-08-08] MEDS ORDERED: LIDOCAINE HCL 1% 50 ML VIAL INFIL PRN (10:30)
[2017-08-08] MEDS ORDERED: ONDANSETRON HCL 4 MG/2 ML VIAL IV PUSH PRN (10:30)
[2017-08-08] MEDS ORDERED: BACITRACIN OINT 0.9 GM PKT TOP ONE (10:30)
[2017-08-08] MEDS ORDERED: DO NOT ADM ANY ANTICOAGULANT DRUGS PRN (11:45)
[2017-08-08] MEDS ORDERED: PHENYLEPH/NS 1000 MCG/10 ML SYR IV ONE (12:00)
[2017-08-08] MEDS ORDERED: METOPROLOL TARTRATE 5 MG/5 ML VIAL IV ONE (12:00)
[2017-08-08] MEDS ORDERED: LIDOCAINE HCL 1% PF 5 ML SYRINGE OTHER ONE (12:00)
[2017-08-08] MEDS ORDERED: PROPOFOL 200 MG/20 ML AMP IV ONE (12:00)
--- NOTE | 2017-08-08 13:30 | HHI.PR ---
Subjective Remarks Patient seen status post ablation. He reports he is feeling much better. Rate is controlled. He denies chest pain. Objective Vitals Vital Signs Date Time Temp Pulse Resp B/P (MAP) Pulse Ox O2 Delivery O2 Flow Rate FiO2 08/08/17 11:00 97.6 77 16 117/75 (89) 97 Nasal Cannula 3 08/08/17 11:00 98.4 103 22 112/72 (85) 99 08/08/17 10:45 75 16 115/74 (88) 95 Nasal Cannula 3 08/08/17 10:30 74 16 114/72 (86) 94 Nasal Cannula 3 08/08/17 10:15 73 15 117/78 (91) 93 Nasal Cannula 3 08/08/17 10:00 70 15 113/69 (84) 96 Nasal Cannula 4 08/08/17 09:45 68 15 115/70 (85) 94 Nasal Cannula 4 08/08/17 09:30 69 15 109/65 (80) 95 Simple Mask 7 08/08/17 09:20 98.6 69 14 111/65 (80) 91 Simple Mask 7 08/08/17 07:00 86 08/08/17 06:00 96 08/08/17 05:00 95 08/08/17 04:00 90 08/08/17 03:05 98.3 89 24 134/79 (97) 93 08/08/17 03:00 82 08/08/17 02:00 82 08/08/17 01:00 82 08/08/17 00:00 86 08/07/17 23:05 98.2 86 24 140/91 (107) 96 08/07/17 23:00 83 08/07/17 22:15 90 125/86 08/07/17 22:00 86 08/07/17 21:00 86 08/07/17 20:00 86 08/07/17 19:05 98.2 86 24 126/80 (95) 95 08/07/17 19:00 87 08/07/17 18:00 90 08/07/17 17:47 96 Nasal Cannula 6.00 08/07/17 17:00 88 08/07/17 16:00 82 08/07/17 15:10 99.9 83 28 150/91 (110) 98 08/07/17 15:00 84 08/07/17 14:00 89 I/O 08/07/17 08/07/17 08/07/17 08/08/17 08/08/17 08/08/17 07:00 15:00 23:00 07:00 15:00 23:00 Intake Total 642.5 ml 125 ml 360 ml 340 ml Output Total 950 ml 250 ml 1925 ml 1450 ml 750 ml Balance -307.5 ml -125 ml -1565 ml -1110 ml -750 ml Intake Oral 200 ml 360 ml 340 ml IV Total 442.5 ml 125 ml Output Urine Total 950 ml 250 ml 1925 ml 1450 ml 750 ml Result Diagram: 08/08/1761608/08/17616 Objective Remarks GENERAL: This is a well-nourished, well-developed patient, on bipap. CARDIOVASCULAR: Normal rate, irregular rhythm. 2 out of 6 ROSALINE murmur RESPIRATORY: Faint crackles bilateral bases. Faint expiratory wheezing. GASTROINTESTINAL: Abdomen soft, non-tender, non-distended. Normal active bowel sounds MUSCULOSKELETAL: Extremities without cyanosis, or edema. NEURO: Alert & Oriented x4 to person, place, time, situation. Moves all ext x4 PSYCH: Appropriate mood and affect. A/P Problem List: (1) Atrial fibrillation with RVR ICD Code: I48.91 - Unspecified atrial fibrillation (2) Respiratory failure ICD Code: J96.90 - Respiratory failure, unspecified, unspecified whether with hypoxia or hypercapnia (3) NSTEMI (non-ST elevated myocardial infarction) ICD Code: I21.4 - Non-ST elevation (NSTEMI) myocardial infarction Status: Acute (4) CHF (congestive heart failure) ICD Code: I50.9 - Heart failure, unspecified (5) Rhabdomyolysis ICD Code: M62.82 - Rhabdomyolysis (6) Non-compliance ICD Code: Z91.19 - Patient's noncompliance with other medical treatment and regimen Assessment and Plan 1. A-fib/A-flutter: A-fib w/ RVR on arrival, s/p Cardizem, noted to be in A- flutter w/ 3:1 conduction, persistent tachycardia, status post Cardizem gtt. -Appreciate cardiology following. -Status post cardiac ablation with Dr. Roy -Rate controlled. On amiodarone. Eliquis 2. NSTEMI: Trop 0.08, possibly related to tachyarrhythmia, however h/o recent NSTEMI non-compliant w/ ASA/Plavix, high risk for ACS. On therapeutic Lovenox. -Cardiology on board 3. CHF: Acute. BNP 565. Echo with LVEF 45-50%. Continue IV Lasix 20 mg twice daily. Monitor I/O. 4. Respiratory Failure: secondary to all of the above. Much improved. Supplemental oxygen. Monitor I/O as above. 6. Non-Compliance: admits to not taking medications for the last 3-4 months, pt counselled on the need to adhere to medical regimen, relays understanding, states he will take meds 7. DVT Prophylaxis: Michael Fitzgerald MD Aug 08, 2017 13:30
[2017-08-08] MEDS: METOPROLOL TARTRATE 25 MG TAB PO SCH ×2 (13:36→21:53)
[2017-08-08] MEDS: ATORVASTATIN 40 MG TAB PO SCH (13:36)
[2017-08-08] MEDS: AMIODARONE 200 MG TAB PO SCH ×2 (13:38→21:53)
[2017-08-08] MEDS: DOCUSATE SODIUM 50 MG/SENNA 8.6 MG TAB PO SCH ×2 (13:38→21:00)
[2017-08-08] MEDS: CLOPIDOGREL 75 MG TAB PO SCH (13:38)
--- NOTE | 2017-08-08 16:40 | EKG ---
Date Performed: 08/08/2017 Time Performed: 10:51:36 PTAGE: 61 years EKG: Sinus rhythm WITH FIRST DEGREE AV BLOCK WITH FREQUENT SUPRAVENTRICULAR PREMATURE COMPLEXES POSSIBLE LEFT ATRIAL E NLARGEMENT POSSIBLE RIGHT VENTRICULAR CONDUCTION DELAY MODERATE T-WAVE ABNORMALITY ABNORMAL ECG PREVIOUS TRACING : 08/05/2017 20.52 Compared to previous tracing, a flutter no longer present DOCTOR: Dhruv Olivera Interpretating Date/Time 08/08/2017 16:38:20
[2017-08-08] MEDS: APIXABAN 5 MG TABLET PO SCH (21:53)
[2017-08-09] VITALS (30 sets, daily range): BP systolic 131–167; BP diastolic 80–106; PULSE 78–132; TEMP 97.6–98.2; O2SAT 93–97
[2017-08-09] MEDS: METOPROLOL TARTRATE 25 MG TAB PO SCH ×2 (06:14→21:08)
[2017-08-09 06:32] LABS: HEMATOCRIT 39.7 % (39.0-51.0); HEMOGLOBIN 13.3 GM/DL (13.0-17.0); MEAN CELL VOLUME 88.9 FL (80.0-100.0); MEAN CORPUSCULAR HEMOGLOBIN 29.7 PG (27.0-34.0); MEAN CORPUSCULAR HGB CONC 33.4 % (32.0-36.0); PLATELET COUNT 184 TH/MM3 (150-450); RED BLOOD COUNT 4.47 MIL/MM3 (4.50-5.90); RED CELL DISTRIBUTION WIDTH 13.6 % (11.6-17.2); WHITE BLOOD COUNT 7.4 TH/MM3 (4.0-11.0)
[2017-08-09 07:07] LABS: BICARBONATE 27.3 MEQ/L (21.0-32.0); CALCIUM 8.5 MG/DL (8.5-10.1); CREATININE 0.72 MG/DL (0.60-1.30)
[2017-08-09] MEDS: AMIODARONE 200 MG TAB PO SCH ×2 (08:21→21:08)
[2017-08-09] MEDS: ATORVASTATIN 40 MG TAB PO SCH (08:21)
[2017-08-09] MEDS: APIXABAN 5 MG TABLET PO SCH ×2 (08:21→21:09)
[2017-08-09] MEDS: CLOPIDOGREL 75 MG TAB PO SCH (08:21)
[2017-08-09] MEDS: SODIUM CHLORIDE 0.9% FLUSH 10 ML FLUSH IV FLUSH SCH ×2 (08:22→21:00)
[2017-08-09] MEDS: FUROSEMIDE 20 MG/2 ML VIAL IV PUSH SCH ×2 (08:22→16:53)
[2017-08-09] MEDS: DOCUSATE SODIUM 50 MG/SENNA 8.6 MG TAB PO SCH ×2 (08:23→21:00)
[2017-08-09] MEDS ORDERED: DILTIAZEM HCL IV PUSH PRN (12:00)
[2017-08-09] MEDS ORDERED: DILTIAZEM 125 MG/NS 100 ML IV PRN ×2 (12:00)
--- NOTE | 2017-08-09 12:12 | HHI.PR ---
Subjective Remarks Patient rate is uncontrolled again this morning. He denies chest pain or shortness of breath. Objective Vitals Vital Signs Date Time Temp Pulse Resp B/P (MAP) Pulse Ox O2 Delivery O2 Flow Rate FiO2 08/09/17 09:45 97 Nasal Cannula 2.00 08/09/17 08:20 97.6 84 162/101 (121) 95 08/09/17 06:02 86 08/09/17 05:05 92 08/09/17 04:26 98.2 84 166/106 (126) 95 08/09/17 04:00 82 08/09/17 03:00 87 08/09/17 02:00 86 08/09/17 01:00 86 08/09/17 00:09 98.0 91 154/102 (119) 95 08/09/17 00:00 88 08/08/17 23:00 89 08/08/17 22:00 92 08/08/17 21:00 94 08/08/17 20:39 94 Nasal Cannula 6.00 08/08/17 20:00 90 08/08/17 20:00 98.4 94 135/80 (98) 93 08/08/17 19:00 97 08/08/17 18:00 90 08/08/17 17:00 84 08/08/17 16:00 84 08/08/17 16:00 98.5 84 20 138/93 (108) 96 08/08/17 15:00 82 08/08/17 14:00 94 08/08/17 13:00 86 I/O 08/08/17 08/08/17 08/08/17 08/09/17 08/09/17 08/09/17 06:59 14:59 22:59 06:59 14:59 22:59 Intake Total 340 ml 600 ml 240 ml Output Total 1450 ml 750 ml 450 ml 1200 ml Balance -1110 ml -750 ml 150 ml -960 ml Intake Oral 340 ml 600 ml 240 ml Output Urine Total 1450 ml 750 ml 450 ml 1200 ml Result Diagram: 08/09/17 0504 08/09/17 0504 Objective Remarks GENERAL: This is a well-nourished, well-developed patient, on bipap. CARDIOVASCULAR: Rate in the 140s, irregular rhythm. 2 out of 6 ROSALINE murmur RESPIRATORY: Faint crackles bilateral bases. Faint expiratory wheezing. GASTROINTESTINAL: Abdomen soft, non-tender, non-distended. Normal active bowel sounds MUSCULOSKELETAL: Extremities without cyanosis, or edema. NEURO: Alert & Oriented x4 to person, place, time, situation. Moves all ext x4 PSYCH: Appropriate mood and affect. A/P Problem List: (1) Atrial fibrillation with RVR ICD Code: I48.91 - Unspecified atrial fibrillation (2) Respiratory failure ICD Code: J96.90 - Respiratory failure, unspecified, unspecified whether with hypoxia or hypercapnia (3) NSTEMI (non-ST elevated myocardial infarction) ICD Code: I21.4 - Non-ST elevation (NSTEMI) myocardial infarction Status: Acute (4) CHF (congestive heart failure) ICD Code: I50.9 - Heart failure, unspecified (5) Rhabdomyolysis ICD Code: M62.82 - Rhabdomyolysis (6) Non-compliance ICD Code: Z91.19 - Patient's noncompliance with other medical treatment and regimen Assessment and Plan 1. A-fib/A-flutter: A-fib w/ RVR on arrival, s/p Cardizem, noted to be in A- flutter w/ 3:1 conduction, persistent tachycardia, status post Cardizem gtt. -Appreciate cardiology following. -Status post cardiac ablation with Dr. Roy -Rate uncontrolled again this morning. Discussed with RN. Dr. Roy aware. Patient restarted on Cardizem drip. - Eliquis 2. NSTEMI: Trop 0.08, possibly related to tachyarrhythmia, however h/o recent NSTEMI non-compliant w/ ASA/Plavix, high risk for ACS. On therapeutic Lovenox. -Cardiology on board 3. CHF: Acute. BNP 565. Echo with LVEF 45-50%. Transition to oral Lasix 20 mg twice daily. Monitor I/O. 4. Respiratory Failure: secondary to all of the above. Improving but still requiring supplemental oxygen. Monitor I/O as above. 6. Non-Compliance: admits to not taking medications for the last 3-4 months, pt counselled on the need to adhere to medical regimen, relays understanding, states he will take meds 7. DVT Prophylaxis: Eliquis Discharge Planning Patient is still critically ill on drip. Michael Mckee MD Aug 09, 2017 12:12
[2017-08-09] MEDS ORDERED: DILTIAZEM HCL 25 MG/5 ML (Bolus) IV PUSH PRN (12:30)
--- NOTE | 2017-08-09 12:31 | EKG ---
Date Performed: 08/09/2017 Time Performed: 05:36:04 PTAGE: 61 years EKG: Sinus rhythm with PAC(s) Lateral T wave changes are nonspecific Borderline ECG PREVIOUS TRACING : 08/08/2017 10.51 Since the previous tracing, no significant change noted DOCTOR: Castro Ivory Interpretating Date/Time 08/09/2017 12:31:35
[2017-08-09] MEDS ORDERED: DILTIAZEM HCL 50 MG/10 ML VIAL IV ONE (15:15)
[2017-08-09] MEDS: POTASSIUM CHLOR 20 MEQ PREMIX 100 ML IV SCH ×2 (16:53→18:37)
--- NOTE | 2017-08-09 18:47 | HHI.PR ---
Subjective Remarks Doing ok Objective Vital Signs Date Time Temp Pulse Resp B/P (MAP) Pulse Ox O2 Delivery O2 Flow Rate FiO2 08/09/17 17:35 77 157/97 08/09/17 17:00 82 08/09/17 16:27 87 133/80 08/09/17 16:26 87 133/80 (97) 94 08/09/17 16:00 81 08/09/17 16:00 86 08/09/17 15:52 98.0 132 144/104 (117) 94 08/09/17 15:52 132 144/104 08/09/17 15:00 116 08/09/17 14:15 131 164/98 08/09/17 14:02 130 158/108 08/09/17 14:00 128 08/09/17 13:35 128 164/98 08/09/17 13:15 129 158/102 08/09/17 13:00 126 08/09/17 12:57 127 145/100 08/09/17 12:40 127 167/98 08/09/17 12:00 128 08/09/17 12:00 98.0 129 167/98 (121) 94 08/09/17 12:00 128 08/09/17 11:00 128 08/09/17 10:00 120 08/09/17 09:45 97 Nasal Cannula 2.00 08/09/17 09:00 78 08/09/17 08:20 97.6 84 162/101 (121) 95 08/09/17 08:00 78 08/09/17 07:00 82 08/09/17 06:02 86 08/09/17 05:05 92 08/09/17 04:26 98.2 84 166/106 (126) 95 08/09/17 04:00 82 08/09/17 03:00 87 08/09/17 02:00 86 08/09/17 01:00 86 08/09/17 00:09 98.0 91 154/102 (119) 95 08/09/17 00:00 88 08/08/17 23:00 89 08/08/17 22:00 92 08/08/17 21:00 94 08/08/17 20:39 94 Nasal Cannula 6.00 08/08/17 20:00 90 08/08/17 20:00 98.4 94 135/80 (98) 93 08/08/17 19:00 97 I/O 08/08/17 08/08/17 08/08/17 08/09/17 08/09/17 08/09/17 07:00 15:00 23:00 07:00 15:00 23:00 Intake Total 340 ml 600 ml 240 ml 1200 ml Output Total 1450 ml 750 ml 450 ml 1200 ml 3500 ml Balance -1110 ml -750 ml 150 ml -960 ml -2300 ml Intake Oral 340 ml 600 ml 240 ml 1200 ml Output Urine Total 1450 ml 750 ml 450 ml 1200 ml 3500 ml # Voids 6 Result Diagram: 08/09/17 0504 08/09/17 0504 Imaging Alert, fully oriented, in bed Lungs: ventilated, no wheezing Cardiovascular: S1, S2 irregular , tachycardia Abdomen: soft, no mass Ext: no edema Last Impressions Chest X-Ray 08/06/17 0000 Signed Impressions: Service Date/Time: Sunday, August 06, 2017 22:18 - CONCLUSION: 1. Edema pattern improved from August 05. Trace pleural fluid. Cardiomegaly. Casey Collins MD Current Medications Medications (Trade) Dose Ordered Sig/Cheng Route Start Time Stop Time Status Last Admin (NS Flush) 2 ml UNSCH PRN IV FLUSH 08/05/17 23:15 08/08/17 17:47 (NS Flush) 2 ml BID IV FLUSH 08/06/17 09:00 08/09/17 08:22 (Tylenol) 650 mg Q6H PRN PO 08/05/17 23:15 ([place] 5-325 Mg) 1 tab Q4H PRN PO 08/05/17 23:15 (Morphine Inj) 2 mg Q3H PRN IV PUSH 08/05/17 23:15 (Ewa-Colace) 1 tab BID PO 08/06/17 09:00 08/08/17 13:38 (Milk Of Magnesia Liq) 30 ml Q12H PRN PO 08/05/17 23:15 (Senokot) 17.2 mg Q12H PRN PO 08/05/17 23:15 (Dulcolax Supp) 10 mg DAILY PRN RECTAL 08/05/17 23:15 (Lactulose Liq) 30 ml DAILY PRN PO 08/05/17 23:15 (Lipitor) 40 mg DAILY PO 08/06/17 09:00 08/09/17 08:21 (Plavix) 75 mg DAILY PO 08/06/17 09:00 08/09/17 08:21 (Lopressor) 25 mg Q12HR PO 08/07/17 10:00 08/09/17 06:14 (Duoneb Neb) 1 ampule Q4HR NEB PRN NEB 08/07/17 12:30 08/07/17 12:58 (Lasix Inj) 20 mg BID@ IV PUSH 08/07/17 18:00 08/09/17 16:53 Lactated Ringer's 1,000 ml @ 30 mls/hr Q24H PRN IV 08/08/17 02:15 08/11/17 02:14 Sodium Chloride 500 ml @ 30 mls/hr [id number] PRN IV 08/08/17 02:15 08/11/17 02:14 (Betadine 5% Antisepsis Kit) 1 applic THERAPEUTIC MENTOR PRN EACH NARE 08/08/17 02:15 08/11/17 02:14 (Chlorhexidine 2% Cloth) 3 pack THERAPEUTIC MENTOR PRN TOPICAL 08/08/17 02:15 08/11/17 02:14 (Percocet 5-325 Mg) 1 tab Q4H PRN PO 08/08/17 10:30 (Percocet 5-325 Mg) 2 tab Q4H PRN PO 08/08/17 10:30 (Atropine Inj) 0.5 mg UNSCH PRN IV PUSH 08/08/17 10:30 (Zofran Inj) 4 mg Q4H PRN IV PUSH 08/08/17 10:30 (Eliquis) 5 mg BID PO 08/08/17 21:00 08/09/17 08:21 (Cordarone) 400 mg Q12HR PO 08/08/17 10:30 08/12/17 21:01 08/09/17 08:21 (Cordarone) 200 mg DAILY PO 08/14/17 09:00 Diltiazem HCl 125 mg/Sodium Chloride 125 ml @ 5 mls/hr TITRATE PRN IV 08/09/17 12:00 08/09/17 12:40 Potassium Chloride 100 ml @ 50 mls/hr Q2H IV 08/09/17 17:00 08/09/17 20:59 08/09/17 16:53 Assessment and Plan Problem List: (1) Hypertension ICD Codes: I10 - Essential (primary) hypertension Status: Chronic Plan: SBP 157 (2) Atrial flutter ICD Codes: I48.92 - Unspecified atrial flutter Status: Acute Plan: SP atrial flutter ablation. back into atrial fibrillation On amio and cardizem Will need to be on anticoagulation. The goal is HR controlled, anticoagulation for 3 weeks then anticoagulation. If HR cannot be controlled, ablation will be considered (3) Atrial fibrillation with RVR ICD Codes: I48.91 - Unspecified atrial fibrillation Plan: In atrial fibrillation. Hr will be controlled Problem Qualifiers (1) Atrial flutter: Qualified Codes: I48.92 - Unspecified atrial flutter Charli Roy MD Aug 09, 2017 18:47
[2017-08-10] VITALS (28 sets, daily range): BP systolic 117–149; BP diastolic 78–92; PULSE 68–116; RESP 16; TEMP 98.2–98.7; O2SAT 93–97
[2017-08-10 07:21] LABS: HEMATOCRIT 40.4 % (39.0-51.0); HEMOGLOBIN 13.6 GM/DL (13.0-17.0); MEAN CELL VOLUME 88.7 FL (80.0-100.0); MEAN CORPUSCULAR HEMOGLOBIN 29.8 PG (27.0-34.0); MEAN CORPUSCULAR HGB CONC 33.6 % (32.0-36.0); PLATELET COUNT 200 TH/MM3 (150-450); RED BLOOD COUNT 4.56 MIL/MM3 (4.50-5.90); RED CELL DISTRIBUTION WIDTH 13.7 % (11.6-17.2); WHITE BLOOD COUNT 7.1 TH/MM3 (4.0-11.0)
[2017-08-10 07:59] LABS: BICARBONATE 27.9 MEQ/L (21.0-32.0); CALCIUM 8.7 MG/DL (8.5-10.1); CREATININE 0.77 MG/DL (0.60-1.30)
[2017-08-10] MEDS ORDERED: POTASSIUM CHLORIDE 10 MEQ CONTROLLED RELEASE TAB PO ONE (09:00)
[2017-08-10] MEDS: METOPROLOL TARTRATE 25 MG TAB PO SCH ×2 (09:05→20:49)
[2017-08-10] MEDS: FUROSEMIDE 20 MG/2 ML VIAL IV PUSH SCH ×2 (09:05→18:17)
[2017-08-10] MEDS: ATORVASTATIN 40 MG TAB PO SCH (09:06)
[2017-08-10] MEDS: APIXABAN 5 MG TABLET PO SCH ×2 (09:06→20:49)
[2017-08-10] MEDS: CLOPIDOGREL 75 MG TAB PO SCH (09:06)
[2017-08-10] MEDS: DOCUSATE SODIUM 50 MG/SENNA 8.6 MG TAB PO SCH ×2 (09:06→20:49)
[2017-08-10] MEDS: AMIODARONE 200 MG TAB PO SCH ×2 (09:07→20:48)
[2017-08-10] MEDS: SODIUM CHLORIDE 0.9% FLUSH 10 ML FLUSH IV FLUSH SCH ×2 (09:07→20:48)
--- NOTE | 2017-08-10 12:17 | PD.CARD.PN ---
Subjective Subjective Remarks pt. asking to go home Objective Medications Current Medications Medications (Trade) Dose Ordered Sig/Cheng Route Start Time Stop Time Status Last Admin (NS Flush) 2 ml UNSCH PRN IV FLUSH 08/05/17 23:15 08/08/17 17:47 (NS Flush) 2 ml BID IV FLUSH 08/06/17 09:00 08/10/17 09:07 (Tylenol) 650 mg Q6H PRN PO 08/05/17 23:15 ([place] 5-325 Mg) 1 tab Q4H PRN PO 08/05/17 23:15 (Morphine Inj) 2 mg Q3H PRN IV PUSH 08/05/17 23:15 (Ewa-Colace) 1 tab BID PO 08/06/17 09:00 08/10/17 09:06 (Milk Of Magnesia Liq) 30 ml Q12H PRN PO 08/05/17 23:15 (Senokot) 17.2 mg Q12H PRN PO 08/05/17 23:15 (Dulcolax Supp) 10 mg DAILY PRN RECTAL 08/05/17 23:15 (Lactulose Liq) 30 ml DAILY PRN PO 08/05/17 23:15 (Lipitor) 40 mg DAILY PO 08/06/17 09:00 08/10/17 09:06 (Plavix) 75 mg DAILY PO 08/06/17 09:00 08/10/17 09:06 (Lopressor) 25 mg Q12HR PO 08/07/17 10:00 08/10/17 09:05 (Duoneb Neb) 1 ampule Q4HR NEB PRN NEB 08/07/17 12:30 08/07/17 12:58 (Lasix Inj) 20 mg BID@ IV PUSH 08/07/17 18:00 08/10/17 09:05 Lactated Ringer's 1,000 ml @ 30 mls/hr Q24H PRN IV 08/08/17 02:15 08/11/17 02:14 Sodium Chloride 500 ml @ 30 mls/hr [id number] PRN IV 08/08/17 02:15 08/11/17 02:14 (Betadine 5% Antisepsis Kit) 1 applic TERRITORY ACCOUNT EXECUTIVE PRN EACH NARE 08/08/17 02:15 08/11/17 02:14 (Chlorhexidine 2% Cloth) 3 pack TERRITORY ACCOUNT EXECUTIVE PRN TOPICAL 08/08/17 02:15 08/11/17 02:14 (Percocet 5-325 Mg) 1 tab Q4H PRN PO 08/08/17 10:30 (Percocet 5-325 Mg) 2 tab Q4H PRN PO 08/08/17 10:30 (Atropine Inj) 0.5 mg UNSCH PRN IV PUSH 08/08/17 10:30 (Zofran Inj) 4 mg Q4H PRN IV PUSH 08/08/17 10:30 (Eliquis) 5 mg BID PO 08/08/17 21:00 08/10/17 09:06 (Cordarone) 400 mg Q12HR PO 08/08/17 10:30 08/12/17 21:01 08/10/17 09:07 (Cordarone) 200 mg DAILY PO 08/14/17 09:00 Diltiazem HCl 125 mg/Sodium Chloride 125 ml @ 5 mls/hr TITRATE PRN IV 08/09/17 12:00 08/09/17 12:40 Vital Signs / I&O Vital Signs Date Time Temp Pulse Resp B/P (MAP) Pulse Ox O2 Delivery O2 Flow Rate FiO2 08/10/17 10:56 75 08/10/17 10:00 68 08/10/17 09:16 98.2 08/10/17 09:00 82 08/10/17 08:00 76 08/10/17 07:56 81 16 126/78 (94) 97 08/10/17 07:30 83 143/92 08/10/17 07:13 103 08/10/17 06:02 116 08/10/17 05:23 86 08/10/17 04:03 82 08/10/17 03:40 98.3 87 149/91 (110) 95 08/10/17 03:00 83 08/10/17 02:00 84 08/10/17 01:00 76 08/10/17 00:00 78 08/09/17 23:00 80 08/09/17 23:00 98.2 82 153/93 (113) 93 08/09/17 22:00 80 08/09/17 21:22 95 21 08/09/17 21:00 80 08/09/17 20:00 82 08/09/17 20:00 98.2 83 131/81 (98) 95 08/09/17 19:00 82 08/09/17 18:41 82 153/99 08/09/17 17:35 77 157/97 08/09/17 17:00 82 08/09/17 16:27 87 133/80 08/09/17 16:26 87 133/80 (97) 94 08/09/17 16:00 81 08/09/17 16:00 86 08/09/17 15:52 98.0 132 144/104 (117) 94 08/09/17 15:52 132 144/104 08/09/17 15:00 116 08/09/17 14:15 131 164/98 08/09/17 14:02 130 158/108 08/09/17 14:00 128 08/09/17 13:35 128 164/98 08/09/17 13:15 129 158/102 08/09/17 13:00 126 08/09/17 12:57 127 145/100 08/09/17 12:40 127 167/98 I/O 08/09/17 08/09/17 08/09/17 08/10/17 08/10/17 08/10/17 07:00 15:00 23:00 07:00 15:00 23:00 Intake Total 240 ml 1300 ml 240 ml Output Total 1200 ml 3500 ml 1000 ml Balance -960 ml -2200 ml -760 ml Intake Oral 240 ml 1200 ml 240 ml IV Total 100 ml Output Urine Total 1200 ml 3500 ml 1000 ml # Voids 6 Physical Exam Alert Chest Clear CV S1S2 RRR Tele was in AFib but now back in SR No edeam Laboratory Laboratory Tests Test 08/10/17 05:10 White Blood Count 7.1 TH/MM3 Red Blood Count 4.56 MIL/MM3 Hemoglobin 13.6 GM/DL Hematocrit 40.4 % Mean Corpuscular Volume 88.7 FL Mean Corpuscular Hemoglobin 29.8 PG Mean Corpuscular Hemoglobin Concent 33.6 % Red Cell Distribution Width 13.7 % Platelet Count 200 TH/MM3 Mean Platelet Volume 10.0 FL Blood Urea Nitrogen 18 MG/DL Creatinine 0.77 MG/DL Random Glucose 89 MG/DL Calcium Level 8.7 MG/DL Sodium Level 141 MEQ/L Potassium Level 3.2 MEQ/L Chloride Level 106 MEQ/L Carbon Dioxide Level 27.9 MEQ/L Anion Gap 7 MEQ/L Estimat Glomerular Filtration Rate 103 ML/MIN Assessment and Plan Problem List: (1) Atrial flutter ICD Codes: I48.92 - Unspecified atrial flutter Status: Acute Plan: s/p ablation (2) Atrial fibrillation with RVR ICD Codes: I48.91 - Unspecified atrial fibrillation Plan: in and out - currently SR. I have texted Dr. Roy to see what he wants done (tentaively Afib ablation Sunday Problem Qualifiers (1) Atrial flutter: Qualified Codes: I48.92 - Unspecified atrial flutter Castro Ivory MD Aug 10, 2017 12:17
--- NOTE | 2017-08-10 14:30 | HHI.PR ---
Subjective Remarks Patient reports he is feeling okay. In and out of A. fib. Currently on Cardizem drip Objective Vitals Vital Signs Date Time Temp Pulse Resp B/P (MAP) Pulse Ox O2 Delivery O2 Flow Rate FiO2 08/10/17 14:30 93 08/10/17 13:03 77 08/10/17 13:02 98.7 77 16 117/92 (100) 96 08/10/17 10:56 75 08/10/17 10:00 68 08/10/17 09:16 98.2 08/10/17 09:00 82 08/10/17 08:00 76 08/10/17 07:56 81 16 126/78 (94) 97 08/10/17 07:30 83 143/92 08/10/17 07:13 103 08/10/17 06:02 116 08/10/17 05:23 86 08/10/17 04:03 82 08/10/17 03:40 98.3 87 149/91 (110) 95 08/10/17 03:00 83 08/10/17 02:00 84 08/10/17 01:00 76 08/10/17 00:00 78 08/09/17 23:00 80 08/09/17 23:00 98.2 82 153/93 (113) 93 08/09/17 22:00 80 08/09/17 21:22 95 21 08/09/17 21:00 80 08/09/17 20:00 82 08/09/17 20:00 98.2 83 131/81 (98) 95 08/09/17 19:00 82 08/09/17 18:41 82 153/99 08/09/17 17:35 77 157/97 08/09/17 17:00 82 08/09/17 16:27 87 133/80 08/09/17 16:26 87 133/80 (97) 94 08/09/17 16:00 81 08/09/17 16:00 86 08/09/17 15:52 98.0 132 144/104 (117) 94 08/09/17 15:52 132 144/104 08/09/17 15:00 116 I/O 3/29/18 3/29/18 3/29/18 3/30/18 3/30/18 3/30/18 07:00 15:00 23:00 07:00 15:00 23:00 Intake Total 240 ml 1300 ml 240 ml Output Total 1200 ml 3500 ml 1000 ml Balance -960 ml -2200 ml -760 ml Intake Oral 240 ml 1200 ml 240 ml IV Total 100 ml Output Urine Total 1200 ml 3500 ml 1000 ml # Voids 6 Result Diagram: 08/10/1750908/10/17509 Objective Remarks GENERAL: This is a well-nourished, well-developed patient, on bipap. CARDIOVASCULAR: Rate in the 120s, irregular rhythm. 2 out of 6 ROSALINE murmur RESPIRATORY: Faint crackles bilateral bases. Faint expiratory wheezing. GASTROINTESTINAL: Abdomen soft, non-tender, non-distended. Normal active bowel sounds MUSCULOSKELETAL: Extremities without cyanosis, or edema. NEURO: Alert & Oriented x4 to person, place, time, situation. Moves all ext x4 PSYCH: Appropriate mood and affect. A/P Problem List: (1) Atrial fibrillation with RVR ICD Code: I48.91 - Unspecified atrial fibrillation (2) Respiratory failure ICD Code: J96.90 - Respiratory failure, unspecified, unspecified whether with hypoxia or hypercapnia (3) NSTEMI (non-ST elevated myocardial infarction) ICD Code: I21.4 - Non-ST elevation (NSTEMI) myocardial infarction Status: Acute (4) CHF (congestive heart failure) ICD Code: I50.9 - Heart failure, unspecified (5) Rhabdomyolysis ICD Code: M62.82 - Rhabdomyolysis (6) Non-compliance ICD Code: Z91.19 - Patient's noncompliance with other medical treatment and regimen Assessment and Plan 1. A-fib/A-flutter: A-fib w/ RVR on arrival, s/p Cardizem, noted to be in A- flutter w/ 3:1 conduction, persistent tachycardia, status post Cardizem gtt. -Appreciate cardiology following. -Status post cardiac ablation with Dr. Roy -Rate uncontrolled again this morning. Patient restarted on Cardizem drip. Tentatively repeat ablation on Sunday - Eliquis 2. NSTEMI: Trop 0.08, possibly related to tachyarrhythmia, however h/o recent NSTEMI non-compliant w/ ASA/Plavix, high risk for ACS. On therapeutic Lovenox. -Cardiology on board 3. CHF: Acute. BNP 565. Echo with LVEF 45-50%. Oral Lasix 20 mg twice daily. Monitor I/O. 4. Respiratory Failure: secondary to all of the above. Improving but still requiring supplemental oxygen. Monitor I/O as above. 6. Non-Compliance: admits to not taking medications for the last 3-4 months, pt counselled on the need to adhere to medical regimen, relays understanding, states he will take meds 7. Alcohol dependence: Patient counseled. 8. DVT Prophylaxis: Eliquis Discharge Planning Patient is still critically ill on drip. Michael Mckee MD Aug 10, 2017 14:30
[2017-08-11] VITALS (14 sets, daily range): BP systolic 128–150; BP diastolic 75–105; PULSE 56–79; RESP 16; TEMP 97.6–98.2; O2SAT 92–96
[2017-08-11 07:08] LABS: HEMATOCRIT 41.5 % (39.0-51.0); MEAN CELL VOLUME 88.3 FL (80.0-100.0); MEAN CORPUSCULAR HEMOGLOBIN 29.7 PG (27.0-34.0); MEAN CORPUSCULAR HGB CONC 33.6 % (32.0-36.0); MEAN PLATELET VOLUME 9.7 FL (7.0-11.0); PLATELET COUNT 198 TH/MM3 (150-450); RED CELL DISTRIBUTION WIDTH 13.8 % (11.6-17.2); WHITE BLOOD COUNT 6.1 TH/MM3 (4.0-11.0)
[2017-08-11] MEDS: DOCUSATE SODIUM 50 MG/SENNA 8.6 MG TAB PO SCH (08:57)
[2017-08-11] MEDS: SODIUM CHLORIDE 0.9% FLUSH 10 ML FLUSH IV FLUSH SCH (08:57)
[2017-08-11] MEDS: FUROSEMIDE 20 MG/2 ML VIAL IV PUSH SCH (08:57)
[2017-08-11] MEDS: APIXABAN 5 MG TABLET PO SCH (08:58)
[2017-08-11] MEDS: METOPROLOL TARTRATE 25 MG TAB PO SCH (08:58)
[2017-08-11] MEDS: AMIODARONE 200 MG TAB PO SCH (08:58)
[2017-08-11] MEDS: ATORVASTATIN 40 MG TAB PO SCH (08:58)
[2017-08-11] MEDS: CLOPIDOGREL 75 MG TAB PO SCH (08:59)
--- NOTE | 2017-08-11 14:07 | HHI.PR ---
Objective Vitals Vital Signs Date Time Temp Pulse Resp B/P (MAP) Pulse Ox O2 Delivery O2 Flow Rate FiO2 08/11/17 12:00 71 08/11/17 11:25 92 21 08/11/17 11:00 71 08/11/17 11:00 97.6 69 16 145/92 (109) 95 08/11/17 10:00 74 08/11/17 09:00 76 08/11/17 08:00 74 08/11/17 07:00 65 16 148/75 (99) 96 08/11/17 07:00 56 08/11/17 05:00 73 08/11/17 04:00 98.2 73 16 128/79 (95) 94 08/11/17 01:00 79 08/11/17 00:00 79 08/11/17 00:00 98.2 79 16 150/105 (120) 95 08/10/17 23:00 74 08/10/17 21:34 95 21 08/10/17 20:00 98.2 80 16 140/86 (104) 94 08/10/17 20:00 77 08/10/17 18:23 73 08/10/17 18:19 73 139/85 08/10/17 18:18 73 16 139/85 (103) 95 08/10/17 17:00 73 08/10/17 16:00 72 08/10/17 15:25 98.4 75 16 124/81 (95) 93 08/10/17 15:02 74 08/10/17 14:53 75 08/10/17 14:30 93 I/O 08/10/17 08/10/17 08/10/17 08/11/17 08/11/17 08/11/17 07:00 15:00 23:00 07:00 15:00 23:00 Intake Total 240 ml 360 ml Output Total 1000 ml 2800 ml Balance -760 ml -2800 ml 360 ml Intake Oral 240 ml 360 ml Output Urine Total 1000 ml 2800 ml # Voids 5 Result Diagram: 08/11/17 0618 08/10/17 0510 Objective Remarks GENERAL: This is a well-nourished, well-developed patient, on bipap. CARDIOVASCULAR: Rate in the 120s, irregular rhythm. 2 out of 6 ROSALINE murmur RESPIRATORY: Faint crackles bilateral bases. Faint expiratory wheezing. GASTROINTESTINAL: Abdomen soft, non-tender, non-distended. Normal active bowel sounds MUSCULOSKELETAL: Extremities without cyanosis, or edema. NEURO: Alert & Oriented x4 to person, place, time, situation. Moves all ext x4 PSYCH: Appropriate mood and affect. A/P Problem List: (1) Atrial fibrillation with RVR ICD Code: I48.91 - Unspecified atrial fibrillation (2) Respiratory failure ICD Code: J96.90 - Respiratory failure, unspecified, unspecified whether with hypoxia or hypercapnia (3) NSTEMI (non-ST elevated myocardial infarction) ICD Code: I21.4 - Non-ST elevation (NSTEMI) myocardial infarction Status: Acute (4) CHF (congestive heart failure) ICD Code: I50.9 - Heart failure, unspecified (5) Rhabdomyolysis ICD Code: M62.82 - Rhabdomyolysis (6) Non-compliance ICD Code: Z91.19 - Patient's noncompliance with other medical treatment and regimen Assessment and Plan 1. A-fib/A-flutter: A-fib w/ RVR on arrival, s/p Cardizem, noted to be in A- flutter w/ 3:1 conduction, persistent tachycardia, status post Cardizem gtt. -Appreciate cardiology following. -Status post cardiac ablation with Dr. Roy -Rate uncontrolled again this morning. Patient restarted on Cardizem drip. Tentatively repeat ablation on Sunday - [facility] 2. NSTEMI: Trop 0.08, possibly related to tachyarrhythmia, however h/o recent NSTEMI non-compliant w/ ASA/Plavix, high risk for ACS. On therapeutic Lovenox. -Cardiology on board 3. CHF: Acute. BNP 565. Echo with LVEF 45-50%. Oral Lasix 20 mg twice daily. Monitor I/O. 4. Respiratory Failure: secondary to all of the above. Improving but still requiring supplemental oxygen. Monitor I/O as above. 6. Non-Compliance: admits to not taking medications for the last 3-4 months, pt counselled on the need to adhere to medical regimen, relays understanding, states he will take meds 7. Alcohol dependence: Patient counseled. 8. DVT Prophylaxis: Eliquis Discharge Planning Patient is still critically ill on drip. Michael Mckee MD Aug 11, 2017 14:07
--- NOTE | 2017-08-11 14:17 | PD.CARD.PN ---
Subjective Subjective Remarks pt. asking to go home Objective Medications Current Medications Medications (Trade) Dose Ordered Sig/Cheng Route Start Time Stop Time Status Last Admin (NS Flush) 2 ml UNSCH PRN IV FLUSH 08/05/17 23:15 08/08/17 17:47 (NS Flush) 2 ml BID IV FLUSH 08/06/17 09:00 08/11/17 08:57 (Tylenol) 650 mg Q6H PRN PO 08/05/17 23:15 ([place] 5-325 Mg) 1 tab Q4H PRN PO 08/05/17 23:15 (Morphine Inj) 2 mg Q3H PRN IV PUSH 08/05/17 23:15 (Ewa-Colace) 1 tab BID PO 08/06/17 09:00 08/11/17 08:57 (Milk Of Magnesia Liq) 30 ml Q12H PRN PO 08/05/17 23:15 (Senokot) 17.2 mg Q12H PRN PO 08/05/17 23:15 (Dulcolax Supp) 10 mg DAILY PRN RECTAL 08/05/17 23:15 (Lactulose Liq) 30 ml DAILY PRN PO 08/05/17 23:15 (Lipitor) 40 mg DAILY PO 08/06/17 09:00 08/11/17 08:58 (Plavix) 75 mg DAILY PO 08/06/17 09:00 08/11/17 08:59 (Lopressor) 25 mg Q12HR PO 08/07/17 10:00 08/11/17 08:58 (Duoneb Neb) 1 ampule Q4HR NEB PRN NEB 08/07/17 12:30 08/07/17 12:58 (Lasix Inj) 20 mg BID@ IV PUSH 08/07/17 18:00 08/11/17 08:57 (Percocet 5-325 Mg) 1 tab Q4H PRN PO 08/08/17 10:30 (Percocet 5-325 Mg) 2 tab Q4H PRN PO 08/08/17 10:30 (Atropine Inj) 0.5 mg UNSCH PRN IV PUSH 08/08/17 10:30 (Zofran Inj) 4 mg Q4H PRN IV PUSH 08/08/17 10:30 (Eliquis) 5 mg BID PO 08/08/17 21:00 08/11/17 08:58 (Cordarone) 400 mg Q12HR PO 08/08/17 10:30 08/12/17 21:01 08/11/17 08:58 (Cordarone) 200 mg DAILY PO 08/14/17 09:00 Diltiazem HCl 125 mg/Sodium Chloride 125 ml @ 5 mls/hr TITRATE PRN IV 08/09/17 12:00 08/09/17 12:40 Vital Signs / I&O Vital Signs Date Time Temp Pulse Resp B/P (MAP) Pulse Ox O2 Delivery O2 Flow Rate FiO2 08/11/17 12:00 71 08/11/17 11:25 92 21 08/11/17 11:00 71 08/11/17 11:00 97.6 69 16 145/92 (109) 95 08/11/17 10:00 74 08/11/17 09:00 76 08/11/17 08:00 74 08/11/17 07:00 65 16 148/75 (99) 96 08/11/17 07:00 56 08/11/17 05:00 73 08/11/17 04:00 98.2 73 16 128/79 (95) 94 08/11/17 01:00 79 08/11/17 00:00 79 08/11/17 00:00 98.2 79 16 150/105 (120) 95 08/10/17 23:00 74 08/10/17 21:34 95 21 08/10/17 20:00 98.2 80 16 140/86 (104) 94 08/10/17 20:00 77 08/10/17 18:23 73 08/10/17 18:19 73 139/85 08/10/17 18:18 73 16 139/85 (103) 95 08/10/17 17:00 73 08/10/17 16:00 72 08/10/17 15:25 98.4 75 16 124/81 (95) 93 08/10/17 15:02 74 08/10/17 14:53 75 08/10/17 14:30 93 I/O 08/10/17 08/10/17 08/10/17 08/11/17 08/11/17 08/11/17 07:00 15:00 23:00 07:00 15:00 23:00 Intake Total 240 ml 360 ml Output Total 1000 ml 2800 ml Balance -760 ml -2800 ml 360 ml Intake Oral 240 ml 360 ml Output Urine Total 1000 ml 2800 ml # Voids 5 Physical Exam Alert Chest Clear CV S1S2 RRR Tele SR. no further pauses No edema Laboratory Laboratory Tests Test 08/11/17 06:18 White Blood Count 6.1 TH/MM3 Red Blood Count 4.70 MIL/MM3 Hemoglobin 14.0 GM/DL Hematocrit 41.5 % Mean Corpuscular Volume 88.3 FL Mean Corpuscular Hemoglobin 29.7 PG Mean Corpuscular Hemoglobin Concent 33.6 % Red Cell Distribution Width 13.8 % Platelet Count 198 TH/MM3 Mean Platelet Volume 9.7 FL Assessment and Plan Problem List: (1) Atrial flutter ICD Codes: I48.92 - Unspecified atrial flutter Status: Acute (2) Atrial fibrillation with RVR ICD Codes: I48.91 - Unspecified atrial fibrillation Assessment and Plan Staying in SR. OK to DC. Stressed to pt. he needs to F/U with Dr. Roy Problem Qualifiers (1) Atrial flutter: Qualified Codes: I48.92 - Unspecified atrial flutter Castro Ivory MD Aug 11, 2017 14:17
[2017-08-11] MEDS ORDERED: APIX5TAB PO (15:00)
[2017-08-11] MEDS ORDERED: AMIO200T PO (15:00)
--- NOTE | 2017-08-11 15:01 | HHI.DCPOC ---
Discharge Care Plan Diagnosis: (1) Atrial fibrillation with RVR (2) CHF (congestive heart failure) (3) Alcohol abuse (4) Respiratory failure (5) Hypertension Goals to Promote Your Health * To prevent worsening of your condition and complications * To maintain your health at the optimal level Directions to Meet Your Goals Take your medications as prescribed Follow your dietary instruction Follow activity as directed Keep your appointments as scheduled Take your immunizations and boosters as scheduled If your symptoms worsen call your PCP, if no PCP go to Urgent Care Center or Emergency Room Smoking is Dangerous to Your Health. Avoid second hand smoke Call the 24-hour hour crisis hotline for domestic abuse at Michael Mckee MD Aug 11, 2017 15:01
[2017-08-11] MEDS ORDERED: FURO1TAB62 PO (15:02)
--- NOTE | 2017-08-11 15:10 | HHI.DS ---
Discharge Summary Admission Date Aug 05, 2017 at 22:58 Discharge Date: Aug 11, 2017 Admitting Diagnosis Atrial flutter, new onset chf, elevated troponin (1) Atrial fibrillation with RVR ICD Code: I48.91 - Unspecified atrial fibrillation (2) Respiratory failure ICD Code: J96.90 - Respiratory failure, unspecified, unspecified whether with hypoxia or hypercapnia (3) NSTEMI (non-ST elevated myocardial infarction) ICD Code: I21.4 - Non-ST elevation (NSTEMI) myocardial infarction Status: Acute (4) CHF (congestive heart failure) ICD Code: I50.9 - Heart failure, unspecified (5) Rhabdomyolysis ICD Code: M62.82 - Rhabdomyolysis (6) Non-compliance ICD Code: Z91.19 - Patient's noncompliance with other medical treatment and regimen Procedures Cardiac ablation Brief History - From Admission HPI from the admitting physician This is a 61-year-old male with a PMH of HTN, Hyperlipidemia and CAD who presented to the ER w/ complaints of SOB and chest pain which woke him from sleep. Chest pain substernal, constant, sharp, 8/10, nonradiating. Symptoms progressively worse throughout the day, while in ER noted to be in significant respiratory distress, O2 sat 80's, placed on BIPAP. Also found to be in A-fib/ flutter, currently on Cardizem gtt. H/o NSTEMI 11/2016, s/p Cardiac Cath w/ successful PCI to Left Cx, d/c'd home on ASA, Plavix, Atorvastatin, Lisinopril, Coreg and Verapamil, however pt states he's been non-compliant w/ his meds for the last 3-4 months. On arrival, BP 179/122, HR 144, O2 sat 92% on RA, Afebrile. CBC unremarkable. Chemistry essentially unremarkable. Troponin 0 0.08. CPK 751. BNP 565. INR 1.3. UA negative for UTI. CXR with moderate congestive failure. S/p Lasix in ER w/ 1750ml output at this time. CBC/BMP: 08/11/17 0618 08/10/17 0510 Significant Findings Laboratory Tests Test 08/09/17 05:04 08/10/17 05:10 08/11/17 06:18 Red Blood Count 4.47 MIL/MM3 (4.50-5.90) Potassium Level 3.0 MEQ/L (3.5-5.1) 3.2 MEQ/L (3.5-5.1) Imaging Last Impressions Chest X-Ray 08/06/17 0000 Signed Impressions: Service Date/Time: Sunday, August 06, 2017 22:18 - CONCLUSION: 1. Edema pattern improved from August 05. Trace pleural fluid. Cardiomegaly. Casey Collins MD PE at Discharge GENERAL: This is a well-nourished, well-developed patient, on bipap. CARDIOVASCULAR: Rate in the 120s, irregular rhythm. 2 out of 6 ROSALINE murmur RESPIRATORY: Faint crackles bilateral bases. Faint expiratory wheezing. GASTROINTESTINAL: Abdomen soft, non-tender, non-distended. Normal active bowel sounds MUSCULOSKELETAL: Extremities without cyanosis, or edema. NEURO: Alert & Oriented x4 to person, place, time, situation. Moves all ext x4 PSYCH: Appropriate mood and affect. Pt update on day of discharge Patient reports is feeling great. He is requesting to go home. Rate controlled. Discussed with RN. He remained in sinus. Cleared by cardiology for discharge. Hospital Course 61-year-old male admitted and treated for the followin. A-fib/A-flutter: A-fib w/ RVR on arrival, s/p Cardizem, noted to be in A- flutter w/ 3:1 conduction, persistent tachycardia, status post Cardizem gtt. -Patient was followed by cardiology. He underwent cardiac ablation. He later went back into A. fib and converted back. He is in sinus rhythm by the time of discharge. He is advised to follow-up outpatient with cardiology. He is started on Eliquis. 2. NSTEMI: Trop 0.08, possibly related to tachyarrhythmia 3. CHF: Acute. BNP 565. Echo with LVEF 45-50%. Continue oral Lasix 20 mg twice daily. 4. Respiratory Failure: secondary to all of the above. Resolved. Improving but still requiring supplemental oxygen. Monitor I/O as above. 6. Non-Compliance: admits to not taking medications for the last 3-4 months, pt counselled on the need to adhere to medical regimen, relays understanding, states he will take meds 7. Alcohol dependence: Patient counseled. Pt Condition on Discharge: Good Discharge Disposition: Discharge Home Discharge Time: <= 30 minutes Discharge Instructions DIET: Follow Instructions for: Heart Healthy Diet Activities you can perform: Regular-No Restrictions Follow up Referrals: Cardiology - 2 Weeks with Charli Roy MD New Medications: Furosemide (Lasix) 20 Mg Tab 20 MG PO BID, #60 TAB 0 Refills Amiodarone (Amiodarone) 200 Mg Tab 200 MG PO DAILY, #30 TAB Apixaban (Eliquis) 5 Mg Tab 5 MG PO BID, #60 TAB Continued Medications: Atorvastatin (Atorvastatin) 40 Mg Tab 40 MG PO DAILY for HLP, #30 TAB 0 Refills Carvedilol (Carvedilol) 3.125 Mg Tab 3.125 MG PO BID, #60 TAB 0 Refills Clopidogrel (Plavix) 75 Mg Tab 75 MG PO DAILY for CAD/stent, #30 TAB 0 Refills Lisinopril (Lisinopril) 5 Mg Tab 5 MG PO DAILY for CAD/hypertension, #30 TAB 0 Refills Discontinued Medications: Aspirin (Aspirin Low Strength) 81 Mg Chew 81 MG PO DAILY for CAD, #30 EA 0 Refills Verapamil ER (Verapamil ER) 120 Mg Tab 120 MG PO DAILY, TAB Michael Mckee MD Aug 11, 2017 15:09
[2017-08-14] MEDS ORDERED: AMIODARONE 200 MG TAB PO SCH (09:00)
== END 2017-08-11 16:19 | disposition home or self-care (01) | DRG 273 ==
LOC: NEPC 20:22 → NEDA 22:58 → NEDH 08-06 04:19 → HCIS 08-06 16:48
PROVIDERS: ADMIT Hospitalist; ATTEND Family Medicine
PROC: 5A09457 Assistance with Respiratory Ventilation, 24-96 Consecutive Hours, Continuous Positive Airway Pressure (ICD-10-PCS; 2017-08-05)
PROC: 02K83ZZ Map Conduction Mechanism, Percutaneous Approach (ICD-10-PCS; 2017-08-08)
PROC: 4A0234Z Measurement of Cardiac Electrical Activity, Percutaneous Approach (ICD-10-PCS; 2017-08-08)
PROC: 5A2204Z Restoration of Cardiac Rhythm, Single (ICD-10-PCS; 2017-08-08)
PROC: 02583ZZ Destruction of Conduction Mechanism, Percutaneous Approach (ICD-10-PCS; principal; 2017-08-08 07:30)
DX: I48.92 Unspecified atrial flutter (principal); I21.4 Non-ST elevation (NSTEMI) myocardial infarction; J96.90 Respiratory failure, unspecified, unspecified whether with hypoxia or hypercapnia; M62.82 Rhabdomyolysis; I50.9 Heart failure, unspecified; I11.0 Hypertensive heart disease with heart failure; I48.91 Unspecified atrial fibrillation; I25.10 Atherosclerotic heart disease of native coronary artery without angina pectoris; I25.2 Old myocardial infarction; Z91.14 Patient's other noncompliance with medication regimen
CPT/HCPCS: 36600; 71045; 80048; 80053; 80076; 81001; 82550; 82552; 82805; 83690; 83735; 83880; 84484; 85025; 85027; 85610; 85730; 92960; 93005; 93306; 93613; 93623; 93653; 94002; 94003; 94664; 96365; 96366; 96375; 96376; C1730; C1732; C2630; J0153; J0282; J1644; J1650; J1940; J2250; J2370; J2720; J3010; J3480